=== PATIENT | female | born 1980 | race Caucasian/White ===

== ENCOUNTER 2018-05-26 17:46 | Inpatient (IN) | payer OTHER ==
[2018-05-26] MEDS ORDERED: IOPAMIDOL-300 CONTRAST 30 ML VIAL (ORAL USE) PO PRN (18:44)
[2018-05-26] MEDS ORDERED: SODIUM CHLORIDE 0.9% 2,000 ML IV STA (18:44)
--- NOTE | 2018-05-26 19:46 | ED ---
Abdominal Pain HPI - General Source: patient, RN notes reviewed Mode of arrival: ambulatory Limitations: no limitations <Lambert Burnett - Last Filed: 05/26/18 19:43> <Earl Moctezuma - Last Filed: 05/26/18 22:17> - General Chief Complaint: Abdominal Pain Stated Complaint: Fever, abd pain, surgery 05/09 Time Seen by Provider: 05/26/18 18:44 - History of Present Illness Initial Comments: 38-year-old female presents emergency Department with chief complaint of abdominal pain, fever. Patient states that she had gastric sleeve surgery on by surgeon in [place]. Patient states that she does have some pain since his surgery but recently noticed her heart rate has more elevated and felt ill. Patient noticed that she had a fever. She did take Tylenol 500 mg prior arrival. Patient denies any URI symptoms. She does admit that she's had some pain that radiates into her chest and she feels short of breath. Patient had no prior DVT no recent leg pain or swelling. She states she was not one in the hospital and did have SCDs on. Patient called surgeon who advised her to emergency Department secondary to abdominal pain fever concern for possible week. She states her surgeon is on medical leave at this time so she was unable to follow-up with him. Patient denies any current nausea vomiting constipation, dysuria or hematuria. She has had some light diarrhea since the procedure. Patient states she is currently on puree Foods and has had no difficulty eating. She denies any drainage from her incisions denies any other associated symptoms. (Lambert Burnett) - Related Data Home Medications Medication Instructions Recorded Confirmed ALPRAZolam [Xanax] 1 mg PO TID PRN 05/26/18 05/26/18 Acetaminophen [Tylenol Extra 500 mg PO Q6H PRN 05/26/18 05/26/18 Strength] Ascorbic Acid [Vitamin C] 500 mg PO DAILY 05/26/18 05/26/18 Calcium Carbonate [Calcium] 600 mg PO DAILY 05/26/18 05/26/18 Multivitamin,Therapeutic [Thera] 1 tab PO DAILY 05/26/18 05/26/18 Allergies Allergy/AdvReac Type Severity Reaction Status Date / Time No Known Allergies Allergy Verified 05/26/18 18:48 Review of Systems ROS Other: All systems not noted in ROS Statement are negative. <Lambert Burnett - Last Filed: 05/26/18 19:43> ROS Other: All systems not noted in ROS Statement are negative. <Earl Moctezuma - Last Filed: 05/26/18 22:17> ROS Statement: Those systems with pertinent positive or pertinent negative responses have been documented in the HPI. Past Medical History Past Medical History: No Reported History History of Any Multi-Drug Resistant Organisms: None Reported Additional Past Surgical History / Comment(s): Gastric sleeve 05/09/18 Past Psychological History: No Psychological Hx Reported Smoking Status: Never smoker Past Alcohol Use History: None Reported Past Drug Use History: None Reported <Lambert Burnett - Last Filed: 05/26/18 19:43> General Exam Limitations: no limitations General appearance: alert, in no apparent distress Head exam: Present: atraumatic, normocephalic, normal inspection ENT exam: Present: normal oropharynx Neck exam: Present: normal inspection, full ROM. Absent: tenderness, meningismus, lymphadenopathy Respiratory exam: Present: normal lung sounds bilaterally. Absent: respiratory distress, wheezes, rales, rhonchi, stridor Cardiovascular Exam: Present: normal rhythm, tachycardia, normal heart sounds. Absent: systolic murmur, diastolic murmur, rubs, gallop, clicks GI/Abdominal exam: Present: soft, tenderness (Moderate left-sided), normal bowel sounds, other (Healed surgical incisions noted). Absent: distended, guarding, rebound, rigid Back exam: Absent: CVA tenderness (R), CVA tenderness (L) <Lambert Burnett - Last Filed: 05/26/18 19:43> Vital Signs 05/26/18 05/26/18 05/26/18 18:00 20:08 21:47 Temperature 100.3 F H 100.5 F H 101 F H Pulse Rate 129 H 106 H 104 H Respiratory 20 18 16 Rate Blood Pressure 111/73 116/76 123/74 O2 Sat by Pulse 99 100 99 Oximetry Medical Decision Making <Lambert Burnett - Last Filed: 05/26/18 19:43> - Lab Data Result diagrams: 05/26/18 19:38 05/26/18 19:38 <Earl Moctezuma - Last Filed: 05/26/18 22:17> - Medical Decision Making 38-year-old female presenting with fever, tachycardia, and dyspnea. Patient is postop gastric sleeve, CT abdomen is obtained for concerns of gastric leak or postsurgical infection. This is negative. Patient also sees CT angiography which is negative for pulmonary embolism, there is a bilateral infiltrate which does explain her fever, as well as her dyspnea. She has a significantly elevated white blood cell count 20.2, stable hemoglobin, normal CMP, urinalysis is also positive for 32 white cells and bacteria although patient has no complaints of dysuria. She is started on antibiotics will be admitted for fluid resuscitation and close monitoring awaiting blood culture and urine culture. (Earl Moctezuma) - Lab Data Lab Results 05/26/18 05/26/18 05/26/18 Range/Units 19:38 19:38 19:38 WBC 20.2 H (3.8-10.6) k/uL RBC 4.30 (3.80-5.40) m/uL Hgb 12.5 (11.4-16.0) gm/dL Hct 40.1 (34.0-46.0) % MCV 93.2 (80.0-100.0) fL MCH 29.1 (25.0-35.0) pg MCHC 31.2 (31.0-37.0) g/dL RDW 13.1 (11.5-15.5) % Plt Count 561 H (150-450) k/uL Neutrophils % 86 % Lymphocytes % 7 % Monocytes % 6 % Eosinophils % 0 % Basophils % 0 % Neutrophils # 17.4 H (1.3-7.7) k/uL Lymphocytes # 1.3 (1.0-4.8) k/uL Monocytes # 1.2 H (0-1.0) k/uL Eosinophils # 0.1 (0-0.7) k/uL Basophils # 0.0 (0-0.2) k/uL PT (9.0-12.0) sec INR (<1.2) APTT (22.0-30.0) sec D-Dimer (<0.60) mg/L FEU Sodium 138 (137-145) mmol/L Potassium 4.1 (3.5-5.1) mmol/L Chloride 100 (98-107) mmol/L Carbon Dioxide 26 (22-30) mmol/L Anion Gap 12 mmol/L BUN 10 (7-17) mg/dL Creatinine 0.61 (0.52-1.04) mg/dL Est GFR (CKD-EPI)AfAm >90 (>60 ml/min/1.73 sqM) Est GFR (CKD-EPI)NonAf >90 (>60 ml/min/1.73 sqM) Glucose 95 (74-99) mg/dL Plasma Lactic Acid Deon 1.1 (0.7-2.0) mmol/L Calcium 9.2 (8.4-10.2) mg/dL Total Bilirubin 1.0 (0.2-1.3) mg/dL AST 21 (14-36) U/L ALT 15 (9-52) U/L Alkaline Phosphatase 76 (38-126) U/L Total Protein 7.4 (6.3-8.2) g/dL Albumin 3.7 (3.5-5.0) g/dL Amylase 57 (30-110) U/L Lipase 189 (23-300) U/L Urine Color Urine Appearance (Clear) Urine pH (5.0-8.0) Ur Specific Lawrence (1.001-1.035) Urine Protein (Negative) Urine Glucose (UA) (Negative) Urine Ketones (Negative) Urine Blood (Negative) Urine Nitrite (Negative) Urine Bilirubin (Negative) Urine Urobilinogen (<2.0) mg/dL Ur Leukocyte Esterase (Negative) Urine RBC (0-5) /hpf Urine WBC (0-5) /hpf Ur Squamous Epith Cells (0-4) /hpf Urine Bacteria (None) /hpf Urine Mucus (None) /hpf Urine HCG, Qual (Not Detectd) 05/26/18 05/26/18 05/26/18 Range/Units 19:38 19:38 19:38 WBC (3.8-10.6) k/uL RBC (3.80-5.40) m/uL Hgb (11.4-16.0) gm/dL Hct (34.0-46.0) % MCV (80.0-100.0) fL MCH (25.0-35.0) pg MCHC (31.0-37.0) g/dL RDW (11.5-15.5) % Plt Count (150-450) k/uL Neutrophils % % Lymphocytes % % Monocytes % % Eosinophils % % Basophils % % Neutrophils # (1.3-7.7) k/uL Lymphocytes # (1.0-4.8) k/uL Monocytes # (0-1.0) k/uL Eosinophils # (0-0.7) k/uL Basophils # (0-0.2) k/uL PT 12.8 H (9.0-12.0) sec INR 1.4 H (<1.2) APTT 29.4 (22.0-30.0) sec D-Dimer 4.01 H (<0.60) mg/L FEU Sodium (137-145) mmol/L Potassium (3.5-5.1) mmol/L Chloride (98-107) mmol/L Carbon Dioxide (22-30) mmol/L Anion Gap mmol/L BUN (7-17) mg/dL Creatinine (0.52-1.04) mg/dL Est GFR (CKD-EPI)AfAm (>60 ml/min/1.73 sqM) Est GFR (CKD-EPI)NonAf (>60 ml/min/1.73 sqM) Glucose (74-99) mg/dL Plasma Lactic Acid Deon (0.7-2.0) mmol/L Calcium (8.4-10.2) mg/dL Total Bilirubin (0.2-1.3) mg/dL AST (14-36) U/L ALT (9-52) U/L Alkaline Phosphatase (38-126) U/L Total Protein (6.3-8.2) g/dL Albumin (3.5-5.0) g/dL Amylase (30-110) U/L Lipase (23-300) U/L Urine Color Yellow Urine Appearance Cloudy H (Clear) Urine pH 6.5 (5.0-8.0) Ur Specific Lawrence 1.031 (1.001-1.035) Urine Protein 1+ H (Negative) Urine Glucose (UA) Negative (Negative) Urine Ketones 3+ H (Negative) Urine Blood Small H (Negative) Urine Nitrite Negative (Negative) Urine Bilirubin Negative (Negative) Urine Urobilinogen 3.0 (<2.0) mg/dL Ur Leukocyte Esterase Large H (Negative) Urine RBC 16 H (0-5) /hpf Urine WBC 32 H (0-5) /hpf Ur Squamous Epith Cells 3 (0-4) /hpf Urine Bacteria Moderate H (None) /hpf Urine Mucus Many H (None) /hpf Urine HCG, Qual Not Detected (Not Detectd) Disposition <Lambert Burnett - Last Filed: 05/26/18 19:43> Is patient prescribed a controlled substance at d/c from ED?: No Decision to Admit Reason: Admit from EC Decision Date: 05/26/18 Decision Time: 22:17 <Earl Moctezuma - Last Filed: 05/26/18 22:17> Clinical Impression: UTI (urinary tract infection), Pneumonia Disposition: ADMITTED IP TO THIS HOSP Condition: Stable Referrals: German Fernández DO [Primary Care Provider] - 1-2 days
[2018-05-26 19:56] LABS: Appearance,Urine Cloudy (Clear); Bacteria,Urine Moderate /hpf; Bilirubin,Urine Negative (Negative); Blood,Urine Small (Negative); Color,Urine Yellow; Glucose,Urine (UA) Negative (Negative); Ketones,Urine 3+ (Negative); Leukocyte Esterase,Urine Large (Negative); Mucus,Urine Many /hpf; Nitrite,Urine Negative (Negative); PH, Urine 6.5 (5.0-8.0); Protein,Urine 1+ (Negative); RBC,Urine 16 /hpf (0-5); Specific Gravity,Urine 1.031 (1.001-1.035); Squamous Epithelial Cell,Urine 3 /hpf (0-4); WBC,Urine 32 /hpf (0-5)
[2018-05-26 20:04] LABS: ALT 15 U/L (9-52); AST 21 U/L (14-36); Albumin 3.7 g/dL (3.5-5.0); Alkaline Phosphatase 76 U/L (38-126); Amylase 57 U/L (30-110); Anion Gap 12 mmol/L; Blood Urea Nitrogen 10 mg/dL (7-17); Calcium 9.2 mg/dL (8.4-10.2); Carbon Dioxide 26 mmol/L (22-30); Chloride 100 mmol/L (98-107); Glucose 95 mg/dL (74-99); Lipase 189 U/L (23-300); Sodium 138 mmol/L (137-145); Total Protein 7.4 g/dL (6.3-8.2)
[2018-05-26 20:11] LABS: Potassium 4.1 mmol/L (3.5-5.1)
[2018-05-26 20:47] LABS: INR 1.4 (<1.2); Partial Thromboplastin Time 29.4 sec (22.0-30.0); Prothrombin Time 12.8 sec (9.0-12.0)
[2018-05-26 20:51] LABS: D-Dimer 4.01 mg/L FEU (<0.60)
[2018-05-26 20:58] LABS: Basophils % (A) 0 %; Eosinophils # (A) 0.1 k/uL (0-0.7); Eosinophils % (A) 0 %; HCT 40.1 % (34.0-46.0); HGB 12.5 gm/dL (11.4-16.0); Lymphocytes # (A) 1.3 k/uL (1.0-4.8); Lymphocytes % (A) 7 %; MCH 29.1 pg (25.0-35.0); MCHC 31.2 g/dL (31.0-37.0); MCV 93.2 fL (80.0-100.0); Mean Platelet Volume 7.3; Monocytes # (A) 1.2 k/uL (0-1.0); Monocytes % (A) 6 %; Neutrophils # (A) 17.4 k/uL (1.3-7.7); Neutrophils % (A) 86 %; Platelet Count 561 k/uL (150-450); RDW 13.1 % (11.5-15.5); WBC 20.2 k/uL (3.8-10.6)
--- NOTE | 2018-05-26 21:41 | CT ---
EXAMINATION TYPE: CT chest angio for PE DATE OF EXAM: 05/26/2018 COMPARISON: NONE HISTORY: Fever and tachycardia. CT DLP: 307.8 mGycm. Automated Exposure Control for Dose Reduction was Utilized. CONTRAST: CTA scan of the thorax is performed with IV Contrast, patient injected with 100 mL of Isovue 370, pul monary embolism protocol. MIP Images are created on CT scanner and reviewed. FINDINGS: LUNGS: Low lung volumes are present. There is small to tiny left pleural effusion with associated com pressive atelectasis and/or infiltrate. There is patchy atelectasis and/or infiltrate posteriorly in the right lung base. Upper lungs are clear without pneumothorax. Tracheobronchial tree is patent. MEDIASTINUM: There is satisfactory enhancement of the pulmonary artery and its branches, there is no CT evidence for pulmonary embolism. There are no greater than 1 cm hilar or mediastinal lymph nodes. No cardiomegaly or pericardial effusion is seen. OTHER: [id number] multilevel spurring in the thoracic spine is seen. Please refer to same day C T abdomen for complete details on the upper abdomen IMPRESSION: 1. No CT evidence for acute pulmonary embolism. 2. Low lung volumes with tiny left pleural effusion and bilateral lower lobe atelectasis and/or infil trate noted.
--- NOTE | 2018-05-26 21:45 | CT ---
EXAMINATION TYPE: CT abdomen pelvis w con DATE OF EXAM: 05/26/2018 HISTORY: Abdominal pain, fever, tachycardia CT DLP: 733.6mGycm Automated Exposure Control for Dose Reduction was Utilized. CONTRAST: CT scan of the abdomen and pelvis is performed with limited oral and with IV Contrast, patient inject ed with 100 mL of Isovue 300. COMPARISON: None FINDINGS: LUNG BASES: Please refer to same-day CTA report for complete details and lung bases. LIVER/GB: No significant abnormality is appreciated. PANCREAS: No significant abnormality is seen. SPLEEN: No significant abnormality is seen. ADRENALS: No significant abnormality is seen. KIDNEYS: No significant abnormality is seen. BOWEL: Evaluation bowel suboptimal secondary to lack of significant enteric contrast and patient havi ng little intra-abdominal fat despite prominence of extra abdominal fat. Surgical changes from gastri c sleeve procedure identified epigastric region. There is no suspicious small or large bowel dilatati on. Low-lying cecum into right pelvis is noted. UTERUS/ADNEXA: There is prominence of the lower uterine segment/cervix, correlate clinically as cervi mimi mass versus low-lying fibroid need to be considered axial image 81. There is small amount of free fluid in pelvic cul-de-sac axial image 81. There is a retroverted uterus with probable fundal fibroi d axial image 73. LYMPH NODES: No greater than 1cm abdominal or pelvic lymph nodes are appreciated. OSSEOUS STRUCTURES: There is transitional-type vertebra at lumbosacral junction. OTHER: No significant additional abnormality is seen. IMPRESSION: No significant acute finding is seen to account for patient's clinical symptoms.
[2018-05-26] MEDS ORDERED: AZITHROMYCIN 500 MG in SODIUM CHLORIDE 0.9% 250 ML IVPB STA (22:01)
[2018-05-26] MEDS ORDERED: VANCOMYCIN IV PER PHARMACY 1 EACH MISC MISCELLANE PRN (22:01)
[2018-05-26] MEDS ORDERED: VANCOMYCIN 1,500 MG in SODIUM CHLORIDE 0.9% 250 ML IVPB STA (22:04)
[2018-05-26] MEDS ORDERED: NALOXONE 0.4 MG/ML 1 ML VIAL IV PRN (22:13)
[2018-05-26] MEDS: SODIUM CHLORIDE 0.9% 1,000 ML IV SCH (22:41)
[2018-05-26] MEDS: ACETAMINOPHEN TAB 325 MG TAB PO PRN (22:44)
[2018-05-26 23:51] VITALS: BMI 33.1
[2018-05-27] MEDS: MORPHINE SULFATE 4 MG/ML SYRINGE IV PRN ×5 (00:04→23:30)
[2018-05-27 08:59] LABS: Basophils % (A) 0 %; Eosinophils % (A) 0 %; HCT 33.1 % (34.0-46.0); HGB 10.2 gm/dL (11.4-16.0); Hypochromasia Slight; Lymphocytes # (A) 1.1 k/uL (1.0-4.8); Lymphocytes % (A) 6 %; MCH 28.7 pg (25.0-35.0); MCHC 30.8 g/dL (31.0-37.0); MCV 93.1 fL (80.0-100.0); Mean Platelet Volume 7.5; Monocytes # (A) 1.1 k/uL (0-1.0); Monocytes % (A) 6 %; Neutrophils # (A) 14.4 k/uL (1.3-7.7); Neutrophils % (A) 86 %; Platelet Count 463 k/uL (150-450); RBC 3.55 m/uL (3.80-5.40); RDW 13.1 % (11.5-15.5); WBC 16.8 k/uL (3.8-10.6)
[2018-05-27 09:31] LABS: ALT 17 U/L (9-52); AST 13 U/L (14-36); Albumin 2.6 g/dL (3.5-5.0); Alkaline Phosphatase 55 U/L (38-126); Anion Gap 9 mmol/L; Blood Urea Nitrogen 6 mg/dL (7-17); Calcium 7.8 mg/dL (8.4-10.2); Carbon Dioxide 23 mmol/L (22-30); Chloride 105 mmol/L (98-107); Glucose 73 mg/dL (74-99); Potassium 3.9 mmol/L (3.5-5.1); Sodium 137 mmol/L (137-145); Total Bilirubin 0.5 mg/dL (0.2-1.3); Total Protein 5.7 g/dL (6.3-8.2)
[2018-05-27] MEDS: SODIUM CHLORIDE 0.9% 1,000 ML IV SCH (11:28)
[2018-05-27] MEDS: VANCOMYCIN 1,500 MG in SODIUM CHLORIDE 0.9% 250 ML IVPB SCH (15:20)
--- NOTE | 2018-05-27 15:38 | P.HPIM ---
History of Present Illness H&P Date: 05/27/18 Chief Complaint: Fever, abdominal pain This is a 38-year-old pleasant female who presented to the emergency room with a chief complaint of abdominal pain and fever. Patient had gastric sleeve surgery on 05/09/2018 by a surgeon in [place]. Patient states that she had experienced some discomfort post surgery however she did notice her heart rate being elevated over 100 at rest and not feeling well. Patient denies any congestion, cough, or sinus pressure. Patient was experienced back pain that radiated to her chest causing some shortness of breath. Patient also complains of epigastric abdominal pain. Patient called her surgeon to advised her to go to the emergency department secondary to the abdominal pain and fever concern for possible leak post surgery. Patient denies any nausea, vomiting, dysuria or hematuria patient since has had a small amount of diarrhea since the procedure. She is currently on a pure food diet and has not experienced any difficulty eating. She denies any drainage from her incisions or redness to the site. Review of Systems All systems: negative Constitutional: Reports fatigue, Reports fever, Denies chills, Denies malaise, Denies night sweats, Denies weakness Eyes: denies blurred vision, denies pain Ears, nose, mouth and throat: Denies headache, Denies sinus pressure, Denies sore throat Cardiovascular: Denies chest pain, Denies dyspnea on exertion, Denies irregular heart beat, Denies leg edema, Denies palpitations, Denies shortness of breath Respiratory: Denies cough Gastrointestinal: Denies abdominal pain, Denies constipation, Denies diarrhea, Denies loss of appetite, Denies nausea, Denies vomiting Genitourinary: Reports flank pain, Denies dysuria, Denies hematuria, Denies urgency Musculoskeletal: Denies myalgias Integumentary: Denies pruritus, Denies rash Neurological: Denies numbness, Denies weakness Psychiatric: Denies anxiety, Denies depression Endocrine: Denies fatigue, Denies weight change Past Medical History Past Medical History: No Reported History History of Any Multi-Drug Resistant Organisms: None Reported Additional Past Surgical History / Comment(s): Gastric sleeve 05/09/18 Past Anesthesia/Blood Transfusion Reactions: Postoperative Nausea & Vomiting ( PONV) Past Psychological History: No Psychological Hx Reported Smoking Status: Never smoker Past Alcohol Use History: None Reported Past Drug Use History: None Reported - Past Family History Mother Family Medical History: Diabetes Mellitus (Father), Hypertension (Father) Additional Family Medical History / Comment(s): Mother has no medical history. Patient has 2 children both are healthy ages 18 and 20 Father Family Medical History: Diabetes Mellitus, Hypertension Medications and Allergies Home Medications Medication Instructions Recorded Confirmed Type ALPRAZolam [Xanax] 1 mg PO TID PRN 05/26/18 05/26/18 History Acetaminophen [Tylenol Extra 500 mg PO Q6H PRN 05/26/18 05/26/18 History Strength] Ascorbic Acid [Vitamin C] 500 mg PO DAILY 05/26/18 05/26/18 History Calcium Carbonate [Calcium] 600 mg PO DAILY 05/26/18 05/26/18 History Multivitamin,Therapeutic [Thera] 1 tab PO DAILY 05/26/18 05/26/18 History Allergies Allergy/AdvReac Type Severity Reaction Status Date / Time No Known Allergies Allergy Verified 05/26/18 18:48 Physical Exam Vitals: Vital Signs Temp Pulse Pulse Resp BP BP Pulse Ox 05/27/18 10:00 99.4 F 115 H 16 105/67 93 L 05/26/18 23:30 98.7 F 109 H 16 104/64 96 05/26/18 22:44 100.8 F H 106 H 18 124/78 99 05/26/18 21:47 101 F H 104 H 16 123/74 99 05/26/18 20:08 100.5 F H 106 H 18 116/76 100 05/26/18 18:00 100.3 F H 129 H 20 111/73 99 Intake and Output 05/27/18 05/27/18 05/27/18 06:59 14:59 22:59 Intake Total 700 Balance 700 Intake: Intake, IV Titration 700 Amount Sodium Chloride 0.9% 1, 450 000 ml @ 75 mls/hr IV . [id number] URVASHI Rx#:[id number] Vancomycin 1,500 mg In 250 Sodium Chloride 0.9% 250 ml @ 125 mls/hr IVPB Q12H URVASHI Rx#:[id number] Other: Voiding Method Toilet # Voids 1 Weight 87.543 kg - Constitutional General appearance: cooperative, no acute distress, obese - EENT Eyes: EOMI, PERRLA ENT: hearing grossly normal, normal oropharynx - Neck Neck: no lymphadenopathy, normal ROM, no rigidity, no stridor - Respiratory Respiratory: bilateral: CTA - Cardiovascular Rhythm: regular Heart sounds: normal: S1, S2 Abnormal Heart Sounds: no systolic murmur, no diastolic murmur, no rub, no S3 Gallop, no S4 Gallop, no click, no other - Gastrointestinal General gastrointestinal: no organomegaly, soft, no tenderness - Integumentary Integumentary: normal, normal turgor - Neurologic Neurologic: CNII-XII intact - Musculoskeletal Musculoskeletal: gait normal, strength equal bilaterally - Psychiatric Psychiatric: A&O x's 3, appropriate affect, intact judgment & insight Results CBC & Chem 7: 05/27/18 07:26 05/27/18 07:26 Labs: Abnormal Lab Results - Last 24 Hours (Table) 05/26/18 05/26/18 05/26/18 Range/Units 19:38 19:38 19:38 WBC 20.2 H (3.8-10.6) k/uL RBC (3.80-5.40) m/uL Hgb (11.4-16.0) gm/dL Hct (34.0-46.0) % MCHC (31.0-37.0) g/dL Plt Count 561 H (150-450) k/uL Neutrophils # 17.4 H (1.3-7.7) k/uL Monocytes # 1.2 H (0-1.0) k/uL PT 12.8 H (9.0-12.0) sec INR 1.4 H (<1.2) D-Dimer 4.01 H (<0.60) mg/L FEU BUN (7-17) mg/dL Glucose (74-99) mg/dL Calcium (8.4-10.2) mg/dL AST (14-36) U/L Total Protein (6.3-8.2) g/dL Albumin (3.5-5.0) g/dL Urine Appearance Cloudy H (Clear) Urine Protein 1+ H (Negative) Urine Ketones 3+ H (Negative) Urine Blood Small H (Negative) Ur Leukocyte Esterase Large H (Negative) Urine RBC 16 H (0-5) /hpf Urine WBC 32 H (0-5) /hpf Urine Bacteria Moderate H (None) /hpf Urine Mucus Many H (None) /hpf 05/27/18 05/27/18 Range/Units 07:26 07:26 WBC 16.8 H (3.8-10.6) k/uL RBC 3.55 L (3.80-5.40) m/uL Hgb 10.2 L (11.4-16.0) gm/dL Hct 33.1 L (34.0-46.0) % MCHC 30.8 L (31.0-37.0) g/dL Plt Count 463 H (150-450) k/uL Neutrophils # 14.4 H (1.3-7.7) k/uL Monocytes # 1.1 H (0-1.0) k/uL PT (9.0-12.0) sec INR (<1.2) D-Dimer (<0.60) mg/L FEU BUN 6 L (7-17) mg/dL Glucose 73 L (74-99) mg/dL Calcium 7.8 L (8.4-10.2) mg/dL AST 13 L (14-36) U/L Total Protein 5.7 L (6.3-8.2) g/dL Albumin 2.6 L (3.5-5.0) g/dL Urine Appearance (Clear) Urine Protein (Negative) Urine Ketones (Negative) Urine Blood (Negative) Ur Leukocyte Esterase (Negative) Urine RBC (0-5) /hpf Urine WBC (0-5) /hpf Urine Bacteria (None) /hpf Urine Mucus (None) /hpf Microbiology - Last 24 Hours (Table) 05/26/18 19:38 Urine Culture - Preliminary Urine,Voided Thrombosis Risk Factor Assmnt - Choose All That Apply Any of the Below Risk Factors Present?: No Other Risk Factors: No Other congenital or acquired thrombophilia - If yes, enter type in comment: No Thrombosis Risk Factor Assessment Level: Very Low Risk Assessment and Plan Plan: 1. Urinary tract infection continue Rocephin 1 g, awaiting urine culture results, 2. Pneumonia continue azithromycin 500 mg daily, vancomycin 200 mg every 12 hours, use incentive spirometer, Mycoplasma IgM Legionella urinary antigen 3. Fever continues acetaminophen as needed awaiting blood cultures DVT prophylaxis ambulation GI prophylaxis Discharge plan: Home possibly tomorrow Impression and plan of care have been directed as dictated by the signing physician. Maryjo Singh nurse practitioner acting as scribe for signing physician.
[2018-05-27] MEDS: ACETAMINOPHEN TAB 325 MG TAB PO PRN (19:57)
[2018-05-27] MEDS ORDERED: AZITHROMYCIN 500 MG in SODIUM CHLORIDE 0.9% 250 ML IVPB SCH (22:00)
[2018-05-28] MEDS: VANCOMYCIN 1,500 MG in SODIUM CHLORIDE 0.9% 250 ML IVPB SCH ×3 (01:14→23:11)
[2018-05-28] MEDS: SODIUM CHLORIDE 0.9% 1,000 ML IV SCH ×2 (01:15→16:39)
[2018-05-28] MEDS: MORPHINE SULFATE 4 MG/ML SYRINGE IV PRN ×2 (04:40→20:04)
[2018-05-28] MEDS ORDERED: VANCOMYCIN TROUGH DUE 1 EACH MISC MISCELLANE ONE (11:00)
[2018-05-28 12:49] LABS: Basophils % (A) 0 %; Eosinophils # (A) 0.1 k/uL (0-0.7); Eosinophils % (A) 0 %; HCT 31.8 % (34.0-46.0); HGB 10.1 gm/dL (11.4-16.0); Hypochromasia Slight; Lymphocytes # (A) 1.2 k/uL (1.0-4.8); Lymphocytes % (A) 7 %; MCH 29.6 pg (25.0-35.0); MCHC 31.7 g/dL (31.0-37.0); MCV 93.4 fL (80.0-100.0); Mean Platelet Volume 7.5; Monocytes % (A) 6 %; Neutrophils # (A) 13.9 k/uL (1.3-7.7); Neutrophils % (A) 85 %; Platelet Count 499 k/uL (150-450); RBC 3.41 m/uL (3.80-5.40); RDW 13.2 % (11.5-15.5); WBC 16.4 k/uL (3.8-10.6)
--- NOTE | 2018-05-28 15:06 | P.DS ---
Providers Date of admission: 05/26/18 22:17 Attending physician: Waldemar Sanchez MD Primary care physician: [facility] Course: This is a 38-year-old pleasant female who presented to the emergency room with a chief complaint of abdominal pain and fever. Patient had gastric sleeve surgery on 05/09/2018 by a surgeon in [place]. Patient states that she had experienced some discomfort post surgery however she did notice her heart rate being elevated over 100 at rest and not feeling well. Patient denies any congestion, cough, or sinus pressure. Patient was experienced back pain that radiated to her chest causing some shortness of breath. Patient also complains of epigastric abdominal pain. Patient called her surgeon to advised her to go to the emergency department secondary to the abdominal pain and fever concern for possible leak post surgery. Patient denies any nausea, vomiting, dysuria or hematuria patient since has had a small amount of diarrhea since the procedure. She is currently on a pure food diet and has not experienced any difficulty eating. She denies any drainage from her incisions or redness to the site. 05/28: Patient is resting comfortably in bed. She did have a temperature of 100.4 last night and heart rate still has been tachycardic. Patient dates that she is feeling much better. She has been using the incentive spirometer and has increased her number. She has also been up ambulating denies any shortness of breath with ambulation. Patient still is complaining of some lower back discomfort. WBC 16.4, hemoglobin 10.1. Patient denies any nausea, vomiting, diarrhea. Spoke with her surgeon from [facility] regarding treatment plan. Discharge diagnosis: #1 sepsis related to urinary tract infection 2. pneumonia 3. fever 4.gastric sleeve procedure secondary to severe obesity Disposition: Home with self-care CC: Dr. Fernández Impression and plan of care have been directed as dictated by the signing physician. Maryjo Singh nurse practitioner acting as scribe for signing physician. Patient Condition at Discharge: Stable Plan - Discharge Summary Discharge Rx Participant: Yes New Discharge Prescriptions: New Acetaminophen Tab [Tylenol] 650 mg PO Q6HR PRN tab PRN Reason: Mild Pain Or Fever > 100.5 Cephalexin [Keflex] 500 mg PO Q8HR #15 cap Continue Multivitamin,Therapeutic [Thera] 1 tab PO DAILY Ascorbic Acid [Vitamin C] 500 mg PO DAILY Acetaminophen [Tylenol Extra Strength] 500 mg PO Q6H PRN PRN Reason: Pain ALPRAZolam [Xanax] 1 mg PO TID PRN PRN Reason: Anxiety Calcium Carbonate [Calcium] 600 mg PO DAILY Discharge Medication List ALPRAZolam [Xanax] 1 mg PO TID PRN 05/26/18 [History] Acetaminophen [Tylenol Extra Strength] 500 mg PO Q6H PRN 05/26/18 [History] Ascorbic Acid [Vitamin C] 500 mg PO DAILY 05/26/18 [History] Calcium Carbonate [Calcium] 600 mg PO DAILY 05/26/18 [History] Multivitamin,Therapeutic [Thera] 1 tab PO DAILY 05/26/18 [History] Acetaminophen Tab [Tylenol] 650 mg PO Q6HR PRN tab 05/28/18 [Rx] Cephalexin [Keflex] 500 mg PO Q8HR #15 cap 05/28/18 [Rx] Follow up Appointment(s)/Referral(s): German Fernández DO [Primary Care Provider] - 1-2 days
--- NOTE | 2018-05-28 15:18 | P.PN ---
Subjective Progress Note Date: 05/28/18 This is a 38-year-old pleasant female who presented to the emergency room with a chief complaint of abdominal pain and fever. Patient had gastric sleeve surgery on 05/09/2018 by a surgeon in [place]. Patient states that she had experienced some discomfort post surgery however she did notice her heart rate being elevated over 100 at rest and not feeling well. Patient denies any congestion, cough, or sinus pressure. Patient was experienced back pain that radiated to her chest causing some shortness of breath. Patient also complains of epigastric abdominal pain. Patient called her surgeon to advised her to go to the emergency department secondary to the abdominal pain and fever concern for possible leak post surgery. Patient denies any nausea, vomiting, dysuria or hematuria patient since has had a small amount of diarrhea since the procedure. She is currently on a pure food diet and has not experienced any difficulty eating. She denies any drainage from her incisions or redness to the site. 05/28: Patient is resting comfortably in bed. She did have a temperature of 100.4 last night and heart rate still has been tachycardic. Patient dates that she is feeling much better. She has been using the incentive spirometer and has increased her number. She has also been up ambulating denies any shortness of breath with ambulation. Patient still is complaining of some lower back discomfort. WBC 16.4, hemoglobin 10.1. Patient denies any nausea, vomiting, diarrhea. Spoke with her surgeon from [facility] regarding treatment plan. Review of systems All systems: negative Constitutional: Reports fatigue, denies fever, Denies chills, Denies malaise, Denies night sweats, Denies weakness Eyes: denies blurred vision, denies pain Ears, nose, mouth and throat: Denies headache, Denies sinus pressure, Denies sore throat Cardiovascular: Denies chest pain, Denies dyspnea on exertion, Denies irregular heart beat, Denies leg edema, Denies palpitations, Denies shortness of breath Respiratory: Denies cough Gastrointestinal: Denies abdominal pain, Denies constipation, Denies diarrhea, Denies loss of appetite, Denies nausea, Denies vomiting Genitourinary: Reports flank pain, Denies dysuria, Denies hematuria, Denies urgency Musculoskeletal: Denies myalgias Integumentary: Denies pruritus, Denies rash Neurological: Denies numbness, Denies weakness Psychiatric: Denies anxiety, Denies depression Endocrine: Denies fatigue, Denies weight change Objective - Vital Signs Vital signs: Vital Signs Temp 98.9 F 05/28/18 07:54 Pulse 112 H 05/28/18 07:54 Resp 16 05/28/18 07:54 BP 108/69 05/28/18 07:54 Pulse Ox 92 L 05/28/18 07:54 Intake & Output 05/27/18 05/28/18 05/28/18 18:59 06:59 18:59 Intake Total 1750 500 Balance 1750 500 Intake: Intake, IV Titration 1750 Amount Azithromycin 500 mg In 250 Sodium Chloride 0.9% 250 ml @ 250 mls/hr IVPB Q24H [facility] Rx#:[id number] Sodium Chloride 0.9% 1, 1200 000 ml @ 75 mls/hr IV . [id number] URVASHI Rx#:[id number] Vancomycin 1,500 mg In 250 Sodium Chloride 0.9% 250 ml @ 125 mls/hr IVPB Q12H [facility] Rx#:[id number] cefTRIAXone 1,000 mg In 50 Sodium Chloride 0.9% 50 ml @ 100 mls/hr IVPB Q24H URVASHI Rx#:[id number] Oral 500 Other: Voiding Method Toilet # Voids 2 4 - Constitutional General appearance: Present: average body habitus, cooperative - EENT Eyes: Present: anicteric sclerae, EOMI, PERRLA ENT: Present: hearing grossly normal, NA/AT, normal oropharynx - Neck Neck: Present: normal ROM. Absent: lymphadenopathy - Respiratory Respiratory: bilateral: CTA, negative: diminished, dullness, rales, rhonchi, wheezing - Cardiovascular Rhythm: regular Heart sounds: normal: S1, S2 - Gastrointestinal General gastrointestinal: Present: normal bowel sounds, soft. Absent: tenderness - Integumentary Integumentary: Present: normal turgor - Neurologic Neurologic: Present: CNII-XII intact - Musculoskeletal Musculoskeletal: Present: gait normal, generalized weakness, strength equal bilaterally - Psychiatric Psychiatric: Present: A&O x's 3, appropriate affect, intact judgment & insight - Labs CBC & Chem 7: 05/28/18 11:09 05/27/18 07:26 Labs: Abnormal Lab Results - Last 24 Hours (Table) 05/28/18 Range/Units 11:09 WBC 16.4 H (3.8-10.6) k/uL RBC 3.41 L (3.80-5.40) m/uL Hgb 10.1 L (11.4-16.0) gm/dL Hct 31.8 L (34.0-46.0) % Plt Count 499 H (150-450) k/uL Neutrophils # 13.9 H (1.3-7.7) k/uL Microbiology - Last 24 Hours (Table) 05/26/18 19:38 Urine Culture - Final Urine,Voided Strep agalactiae - (group b) 05/26/18 19:38 Blood Culture - Preliminary Blood No Growth after 24 hours Assessment and Plan Plan: 1. Sepsis secondary to Urinary tract infection continue Rocephin 1 g, strep agalactiae, 2. Pneumonia continue azithromycin 500 mg daily, vancomycin 200 mg every 12 hours, use incentive spirometer, Mycoplasma IgM Legionella urinary antigen 3. Fever continues acetaminophen as needed awaiting blood cultures DVT prophylaxis ambulation GI prophylaxis Discharge plan: Home possibly tomorrow Impression and plan of care have been directed as dictated by the signing physician. Maryjo Singh nurse practitioner acting as scribe for signing physician.
[2018-05-28] MEDS ORDERED: IOPAMIDOL-300 CONTRAST 30 ML VIAL (ORAL USE) PO PRN (15:22)
--- NOTE | 2018-05-28 17:03 | CONS ---
CONSULTATION DATE OF SERVICE: 05/28/2018. REASON FOR CONSULTATION: Fever and sepsis. HISTORY OF PRESENT ILLNESS: The patient is a 38-year-old female, who recently did have a gastric sleeve surgery done on 05/06/2018 in [place]. The patient presenting to the ER at [facility] on 05/26/2018 with chief complaints of fever and tachycardia. The patient said fever started the day prior to presentation to hospital on . The patient also saying her heart rate has been constantly above 110. The patient has been complaining of pain to the left upper quadrant area that has been radiated up to the left upper back and to the shoulder area. Pain intensity has been almost 7 out of 10, more of a dull aching pain, at times sharp. The patient denies having any nausea or any vomiting. Denies any diarrhea. No significant burning or frequency of urine. No chest pain, shortness of breath or cough. With these symptoms, the patient was evaluated by the ER physician. On arrival to the patient did have a fever of 101 degrees Fahrenheit. The patient was tachycardic and white count was elevated 20,000. She did have a positive UA, however, no significant urinary symptoms. Influenza serology was negative. The patient did have a CT abdominal pelvis that was done only with IV contrast, which was suboptimal because of leak of oral contrast. There was some infiltrate left lung base and CT angiogram was negative for any PE. The patient has been treated with Rocephin and Zithromax for concern for possible pneumonia. However, her white count remains to be elevated. She was supposed to be discharged today and has been put on hold and Infectious Disease was consulted for further recommendation regarding antibiotic therapy. REVIEW OF SYSTEMS: CONSTITUTIONAL: Positive for weakness along with the fever. EYES: No complaint. ENT: No complaint. RESPIRATORY: As per HPI. CARDIOVASCULAR: As per HPI. GENITOURINARY: No complaint. GASTROINTESTINAL: As per HPI. MUSCULOSKELETAL: No complaint. INTEGUMENTARY: No complaint. PSYCHOLOGICAL: No complaint. ENDOCRINE: No complaint. NEUROLOGIC: No complaint. PAST MEDICAL HISTORY: No major illnesses. PAST SURGICAL HISTORY: Gastric sleeve surgery 05/09/2018. SOCIAL HISTORY: Denies smoking, drinking, or drug use. FAMILY HISTORY: Father history of hypertension and diabetes mellitus. ALLERGIES: No known drug allergies. MEDICATION: Currently include the patient is on Tylenol, Zithromax, Rocephin, morphine sulfate, Narcan, and vancomycin was started today. PHYSICAL EXAMINATION: Her blood pressure is 108/69, pulse of 112. Temperature 98.9. She is 92% on room air. General description is a middle aged female lying in bed in no distress. No tachypnea or accessory muscle of respiration use. HEENT: Shows slight pallor. No scleral icterus. Oral mucous membranes dry. No pharyngeal erythema or thrush. NECK: Trachea central. No thyromegaly. LUNGS: Unlabored breathing with decreased breath sounds in the bases. No wheeze or crackle. HEART: S1, S2. Regular rate and rhythm. ABDOMEN: Soft, minimally tender left upper quadrant area. No guarding. No rigidity. No organomegaly. EXTREMITIES: No edema feet. SKIN EXAMINATION: No rash or mass palpable. NEUROLOGICAL: Patient is awake, alert, oriented. Mood and affect normal. LABS: Hemoglobin is 10.1, white count 16.4, admission white count was 20.2. Liver enzymes have been normal. UA has been positive. Influenza serology was negative. CT report as mentioned above. DIAGNOSTIC IMPRESSION AND PLAN: Patient admitted to the hospital with sepsis in this patient who did have a fever and tachycardia and pain in the left upper abdomen that has been radiating to the upper shoulder area. Concern is likely for an intraabdominal process in this patient who recently did have a gastric sleeve procedure done. Clinically doubt pneumonia in patient who is lacking respiratory symptoms as well as UTI and the patient currently does not have any urinary symptoms of any burning or frequency and this patient recently has been in the hospital and did have a gastric sleeve procedure. Will need to cover for resistant gram positive as well as gram-negative pathogen. PLAN: 1. A CT abdominal pelvis with oral contrast has been ordered, will follow with results. 2. We will discontinue Rocephin and Zithromax. 3. We will start the patient on Zosyn 3.375 g q.8 hours. 4. Vancomycin pharmacy to dose target of 15 while waiting for clinically to stabilize and cultures to finalize. 5. We will follow up on clinical condition and culture to further adjust medication if needed. Thank you for this consultation. Will follow this patient along with you. MMODL / IJN: [id number] /
--- NOTE | 2018-05-28 18:07 | CT ---
EXAMINATION TYPE: CT abdomen pelvis wo/w con DATE OF EXAM: 05/28/2018 HISTORY: left sided abdominal pain, gastric sleeve done 05-09-18 CT DLP: 1950.6mGycm Automated Exposure Control for Dose Reduction was Utilized. CONTRAST: CT scan of the abdomen and pelvis is performed with IV Contrast, patient injected with 100 mL of Isov ue 300. COMPARISON: 05/26/2018 FINDINGS: LUNG BASES: There is redemonstration of a small left and trace right pleural effusion with bibasilar atelectasis again present. LIVER/GB: Hepatic parenchyma is diffusely hypoattenuated in comparison to that of the spleen, most co mmonly seen in hepatic steatosis. This finding limits evaluation for hepatic masses. No gross evidenc e of hepatic mass is seen. No intrahepatic biliary ductal dilatation. No cholelithiasis. PANCREAS: No significant abnormality is seen. SPLEEN: No significant abnormality is seen. ADRENALS: No significant abnormality is seen. KIDNEYS: Kidneys enhance symmetrically. No hydronephrosis. BOWEL: There are ill-defined phlegmonous changes in the region of the gastric fundus with fluid atten uation seen cranially such as on series 301 image 17. Surrounding inflammatory fat stranding is prese nt on image 27. Phlegmonous changes around the postsurgical site. Although oral contrast has been adm inistered and has passed into the colon and small bowel with no contrast remaining in the gastric sle bc. No pneumoperitoneum to suggest perforation. No dilated large or small bowel. Moderate amount ret ained colonic stool is seen. UTERUS/ADNEXA: There is redemonstration of prominence of the lower uterine segment/upper cervix. Jonn elation with direct visualization to exclude cervical mass is recommended. Again there is heterogenei ty of the uterus with suspicion for fundal fibroid. LYMPH NODES: No greater than 1cm abdominal or pelvic lymph nodes are appreciated. OSSEOUS STRUCTURES: No significant abnormality is seen. Incidental note is made of a limbus vertebrae at L4 and minimal multilevel degenerative changes are noted of the spine OTHER: No significant additional abnormality is seen. IMPRESSION: Phlegmonous changes are seen in the left upper quadrant surrounding the [place] gastric fu ndus, which is poorly defined given the surrounding inflammatory and phlegmonous changes. Fluid atten uation is seen centrally that could represent abscess or gastric secretions within the [place] gastric fundus and phlegmonous changes may be postsurgical or infectious. Correlate with CBC, fever, and ben rt-term follow-up exam if warranted. No pneumoperitoneum to suggest perforation.
[2018-05-28] MEDS: PIPERACILLIN-TAZOBACTAM 3.375 GM in SODIUM CHLORIDE 0.9% 100 ML IVPB SCH (18:10)
[2018-05-28] MEDS ORDERED: AZITHROMYCIN 500 MG TAB PO SCH (21:00)
[2018-05-29] MEDS: MORPHINE SULFATE 4 MG/ML SYRINGE IV PRN ×4 (01:59→21:02)
[2018-05-29] MEDS: PIPERACILLIN-TAZOBACTAM 3.375 GM in SODIUM CHLORIDE 0.9% 100 ML IVPB SCH ×3 (02:35→16:28)
[2018-05-29] MEDS: SODIUM CHLORIDE 0.9% 1,000 ML IV SCH ×2 (04:10→17:00)
[2018-05-29] MEDS: VANCOMYCIN 1,500 MG in SODIUM CHLORIDE 0.9% 250 ML IVPB SCH ×3 (07:09→21:02)
[2018-05-29] MEDS: ACETAMINOPHEN TAB 325 MG TAB PO PRN (07:44)
[2018-05-29] MEDS ORDERED: IBUPROFEN 800 MG TAB PO PRN (08:16)
[2018-05-29] MEDS: PANTOPRAZOLE 40 MG/10 ML VIAL IVP SCH (08:32)
[2018-05-29 09:01] LABS: Basophils % (A) 0 %; Eosinophils # (A) 0.2 k/uL (0-0.7); Eosinophils % (A) 1 %; HCT 30.3 % (34.0-46.0); HGB 9.9 gm/dL (11.4-16.0); Lymphocytes # (A) 1.1 k/uL (1.0-4.8); Lymphocytes % (A) 7 %; MCH 29.5 pg (25.0-35.0); MCHC 32.5 g/dL (31.0-37.0); MCV 90.8 fL (80.0-100.0); Mean Platelet Volume 7.9; Monocytes # (A) 1.1 k/uL (0-1.0); Monocytes % (A) 7 %; Neutrophils # (A) 13.9 k/uL (1.3-7.7); Neutrophils % (A) 83 %; Platelet Count 449 k/uL (150-450); RBC 3.34 m/uL (3.80-5.40); RDW 13.3 % (11.5-15.5); WBC 16.8 k/uL (3.8-10.6)
[2018-05-29 09:18] LABS: ALT 27 U/L (9-52); AST 36 U/L (14-36); Albumin 2.5 g/dL (3.5-5.0); Alkaline Phosphatase 53 U/L (38-126); Anion Gap 10 mmol/L; Blood Urea Nitrogen 3 mg/dL (7-17); Carbon Dioxide 23 mmol/L (22-30); Chloride 108 mmol/L (98-107); Glucose 78 mg/dL (74-99); Potassium 3.7 mmol/L (3.5-5.1); Sodium 141 mmol/L (137-145); Total Bilirubin 0.8 mg/dL (0.2-1.3); Total Protein 5.5 g/dL (6.3-8.2)
--- NOTE | 2018-05-29 11:04 | P.PN ---
Subjective Progress Note Date: 05/29/18 This is a 38-year-old pleasant female who presented to the emergency room with a chief complaint of abdominal pain and fever. Patient had gastric sleeve surgery on 05/09/2018 by a surgeon in [place]. Patient states that she had experienced some discomfort post surgery however she did notice her heart rate being elevated over 100 at rest and not feeling well. Patient denies any congestion, cough, or sinus pressure. Patient was experienced back pain that radiated to her chest causing some shortness of breath. Patient also complains of epigastric abdominal pain. Patient called her surgeon to advised her to go to the emergency department secondary to the abdominal pain and fever concern for possible leak post surgery. Patient denies any nausea, vomiting, dysuria or hematuria patient since has had a small amount of diarrhea since the procedure. She is currently on a pure food diet and has not experienced any difficulty eating. She denies any drainage from her incisions or redness to the site. 05/28: Patient is resting comfortably in bed. She did have a temperature of 100.4 last night and heart rate still has been tachycardic. Patient dates that she is feeling much better. She has been using the incentive spirometer and has increased her number. She has also been up ambulating denies any shortness of breath with ambulation. Patient still is complaining of some lower back discomfort. WBC 16.4, hemoglobin 10.1. Patient denies any nausea, vomiting, diarrhea. Spoke with her surgeon from [facility] regarding treatment plan. 05/29: Today, patient's discharge was held due to continued elevation in white count, discharge was held and a CAT scan of the abdomen and pelvis was ordered that showed phlegmonous changes in the left upper quadrant surrounding the [place] gastric fundus which is poorly defined given the surrounding inflammatory and phlegmonous changes. Fluid attenuation is seen centrally that could represent abscess or gastric secretions within the [place] gastric fundus and phlegmonous changes may be postsurgical or infectious. Those consults with ID and general surgery were added. Dr. Elizondo is following the patient and antibiotics are currently Zosyn and vancomycin. Dr. Conte is on consult. Blood culture showing no growth after 48 hours. Mycoplasma is negative and Legionella is pending. IV fluids will be increased 100 mL per hour. Review of systems All systems: negative Constitutional: Reports fatigue, denies fever, Denies chills, Denies malaise, Denies night sweats Eyes: denies blurred vision, denies pain Ears, nose, mouth and throat: Denies headache, Denies sinus pressure, Denies sore throat Cardiovascular: Denies chest pain, Denies dyspnea on exertion, Denies irregular heart beat, Denies leg edema, Denies palpitations, Denies shortness of breath Respiratory: Denies cough Gastrointestinal: Denies abdominal pain, Denies constipation, Denies diarrhea, Denies loss of appetite, Denies nausea, Denies vomiting Genitourinary: Reports flank pain, Denies dysuria, Denies hematuria, Denies urgency Musculoskeletal: Denies myalgias Integumentary: Denies pruritus, Denies rash Neurological: Denies numbness, Denies weakness Psychiatric: Denies anxiety, Denies depression Endocrine: Denies fatigue, Denies weight change Objective - Vital Signs Vital signs: Vital Signs Temp 99.6 F 05/29/18 00:20 Pulse 90 05/29/18 00:20 Resp 16 05/29/18 00:20 BP 116/70 05/29/18 00:20 Pulse Ox 94 L 05/28/18 15:00 Intake & Output 05/28/18 05/29/18 05/29/18 18:59 06:59 18:59 Intake Total 3400 1225 Balance 3400 1225 Intake: Intake, IV Titration 2400 1225 Amount Piperacillin-Tazobactam 3 450 .375 gm In Sodium Chloride 0.9% 100 ml @ 25 mls/hr IVPB Q8HR [facility] Rx# :[id number] Sodium Chloride 0.9% 1, 900 525 000 ml @ 75 mls/hr IV . [id number] URVASHI Rx#:[id number] Vancomycin 1,500 mg In 1500 250 Sodium Chloride 0.9% 250 ml @ 125 mls/hr IVPB Q8H URVASHI Rx#:[id number] Oral 1000 Other: # Voids 3 - Exam General appearance: Present: average body habitus, cooperative. Patient in bed and appears to be in no distress. - EENT Eyes: Present: anicteric sclerae, EOMI, PERRLA ENT: Present: hearing grossly normal, NA/AT, normal oropharynx - Neck Neck: Present: normal ROM. Absent: lymphadenopathy - Respiratory Respiratory: bilateral: CTA, negative: diminished, dullness, rales, rhonchi, wheezing - Cardiovascular Rhythm: regular Heart sounds: normal: S1, S2 - Gastrointestinal General gastrointestinal: Present: normal bowel sounds, soft. Absent: tenderness - Integumentary Integumentary: Present: normal turgor - Neurologic Neurologic: Present: CNII-XII intact - Musculoskeletal Musculoskeletal: Present: gait normal, generalized weakness, strength equal bilaterally - Psychiatric Psychiatric: Present: A&O x's 3, appropriate affect, intact judgment & insight - Labs CBC & Chem 7: 05/29/18 07:47 05/29/18 07:47 Labs: Abnormal Lab Results - Last 24 Hours (Table) 05/28/18 Range/Units 11:09 WBC 16.4 H (3.8-10.6) k/uL RBC 3.41 L (3.80-5.40) m/uL Hgb 10.1 L (11.4-16.0) gm/dL Hct 31.8 L (34.0-46.0) % Plt Count 499 H (150-450) k/uL Neutrophils # 13.9 H (1.3-7.7) k/uL Microbiology - Last 24 Hours (Table) 05/26/18 19:38 Blood Culture - Preliminary Blood No Growth after 48 hours Assessment and Plan Plan: 1. Sepsis secondary to abdominal abscess and possibly related to strep agalactia urinary tract infection. Consult with Dr. Mikhail hunter. Dr. Conte is on consult. Antibiotics have been changed to Zosyn. IV fluids 100 mL per hour. 2. Pneumonia less likely. Antibiotics changed to Zosyn, continue incentive spirometer, Mycoplasma IgM negative, Legionella urinary antigen pending 3. Morbid obesity status post gastric sleeve procedure. DVT prophylaxis ambulation GI prophylaxis. IV Protonix. Discharge plan: Home Impression and plan of care have been directed as dictated by the signing physician. Rhonda Rodriguez nurse practitioner acting as scribe for signing physician.
[2018-05-29] MEDS ORDERED: ALPRAZolam 1 MG TAB PO PRN (14:19)
[2018-05-29] MEDS ORDERED: ACETAMINOPHEN IV (For NPO) 1,000 MG in EMPTY BAG 1 BAG IVPB PRN (15:21)
--- NOTE | 2018-05-29 16:38 | P.GSCN ---
History of Present Illness Consult date: 05/29/18 Reason for Consult: Possible gastric sleeve leak the perigastric abscess History of present illness: This is a 38-year-old female who underwent laparoscopic sleeve gastrectomy by Dr. Jeet Nj. Patient had surgery performed approximately 20 days ago. She is admitted to the hospital with complaints of some abdominal pain. The patient was initially thought to have a urinary tract infection. Patient had a CAT scan performed which showed evidence of perigastric inflammation and phlegmon. The patient states that she feels slightly better today. She denies any significant abdominal pain. Past Medical History Past Medical History: No Reported History History of Any Multi-Drug Resistant Organisms: None Reported Additional Past Surgical History / Comment(s): Gastric sleeve 05/09/18 Past Anesthesia/Blood Transfusion Reactions: Postoperative Nausea & Vomiting ( PONV) Past Psychological History: No Psychological Hx Reported Smoking Status: Never smoker Past Alcohol Use History: None Reported Past Drug Use History: None Reported - Past Family History Mother Family Medical History: Diabetes Mellitus (Father), Hypertension (Father) Additional Family Medical History / Comment(s): Mother has no medical history. Patient has 2 children both are healthy ages 18 and 20 Father Family Medical History: Diabetes Mellitus, Hypertension Medications and Allergies Home Medications Medication Instructions Recorded Confirmed Type ALPRAZolam [Xanax] 1 mg PO TID PRN 05/26/18 05/26/18 History Acetaminophen [Tylenol Extra 500 mg PO Q6H PRN 05/26/18 05/26/18 History Strength] Ascorbic Acid [Vitamin C] 500 mg PO DAILY 05/26/18 05/26/18 History Calcium Carbonate [Calcium] 600 mg PO DAILY 05/26/18 05/26/18 History Multivitamin,Therapeutic [Thera] 1 tab PO DAILY 05/26/18 05/26/18 History Acetaminophen Tab [Tylenol] 650 mg PO Q6HR PRN tab 05/28/18 Rx Cephalexin [Keflex] 500 mg PO Q8HR #15 cap 05/28/18 Rx Allergies Allergy/AdvReac Type Severity Reaction Status Date / Time No Known Allergies Allergy Verified 05/26/18 18:48 Surgical - Exam Vital Signs Temp Pulse Resp BP Pulse Ox 100.3 F H 129 H 20 111/73 99 05/26/18 18:00 05/26/18 18:00 05/26/18 18:00 05/26/18 18:00 05/26/18 18:00 - General well developed, no distress - Eyes PERRL - ENT normal pinna - Neck no masses - Respiratory normal expansion - Cardiovascular Rhythm: regular - Abdomen Mild tenderness throughout. There is no rebound or guarding. There is no peritoneal signs. Abdomen: soft Results - Labs 05/29/18 07:47 05/29/18 07:47 Abnormal Lab Results - Last 24 Hours (Table) 05/29/18 05/29/18 Range/Units 07:47 07:47 WBC 16.8 H (3.8-10.6) k/uL RBC 3.34 L (3.80-5.40) m/uL Hgb 9.9 L (11.4-16.0) gm/dL Hct 30.3 L (34.0-46.0) % Neutrophils # 13.9 H (1.3-7.7) k/uL Monocytes # 1.1 H (0-1.0) k/uL Chloride 108 H (98-107) mmol/L BUN 3 L (7-17) mg/dL Calcium 8.0 L (8.4-10.2) mg/dL Total Protein 5.5 L (6.3-8.2) g/dL Albumin 2.5 L (3.5-5.0) g/dL Microbiology - Last 24 Hours (Table) 05/26/18 19:38 Blood Culture - Preliminary Blood 05/26/18 19:38 Blood Culture - Preliminary Blood No Growth after 48 hours Diabetes panel 05/29/18 Range/Units 07:47 Sodium 141 (137-145) mmol/L Potassium 3.7 (3.5-5.1) mmol/L Chloride 108 H (98-107) mmol/L Carbon Dioxide 23 (22-30) mmol/L BUN 3 L (7-17) mg/dL Creatinine 0.54 (0.52-1.04) mg/dL Glucose 78 (74-99) mg/dL Calcium 8.0 L (8.4-10.2) mg/dL AST 36 (14-36) U/L ALT 27 (9-52) U/L Alkaline Phosphatase 53 (38-126) U/L Total Protein 5.5 L (6.3-8.2) g/dL Albumin 2.5 L (3.5-5.0) g/dL Calcium panel 05/29/18 Range/Units 07:47 Calcium 8.0 L (8.4-10.2) mg/dL Albumin 2.5 L (3.5-5.0) g/dL Pituitary panel 05/29/18 Range/Units 07:47 Sodium 141 (137-145) mmol/L Potassium 3.7 (3.5-5.1) mmol/L Chloride 108 H (98-107) mmol/L Carbon Dioxide 23 (22-30) mmol/L BUN 3 L (7-17) mg/dL Creatinine 0.54 (0.52-1.04) mg/dL Glucose 78 (74-99) mg/dL Calcium 8.0 L (8.4-10.2) mg/dL Adrenal panel 05/29/18 Range/Units 07:47 Sodium 141 (137-145) mmol/L Potassium 3.7 (3.5-5.1) mmol/L Chloride 108 H (98-107) mmol/L Carbon Dioxide 23 (22-30) mmol/L BUN 3 L (7-17) mg/dL Creatinine 0.54 (0.52-1.04) mg/dL Glucose 78 (74-99) mg/dL Calcium 8.0 L (8.4-10.2) mg/dL Total Bilirubin 0.8 (0.2-1.3) mg/dL AST 36 (14-36) U/L ALT 27 (9-52) U/L Alkaline Phosphatase 53 (38-126) U/L Total Protein 5.5 L (6.3-8.2) g/dL Albumin 2.5 L (3.5-5.0) g/dL - Imaging CT scan - abdomen: report reviewed (Computed tomography scan the abdomen was reviewed with Dr. Vizcarra. There is evidence of a phlegmon near the gastric staple line. There is no obvious abscess this point.) Assessment and Plan Assessment: Status post sleeve gastrectomy. Patient has most likely had a very small gastric sleeve leak. Patient has a phlegmon associated with this. Her esophagram performed today shows no evidence of a leak. At this point I recommend continued observation and IV antibiotics. I have discussed the case with her surgeon Dr. Nj. The patient be closely observed. If she has any Meckel changes she may need exploratory laparotomy
--- NOTE | 2018-05-29 16:40 | FL ---
EXAMINATION TYPE: FL UGI w esophagus DATE OF EXAM: 05/29/2018 CLINICAL INDICATION: 38-year-old female gastric sleeve leak, left flank pain with fever and tachycard ia, original surgery performed [facility] on 05/09/2018. COMPARISON: Correlation CT 05/28/2018 Total Fluoroscopy Time: 1 minute 46 seconds. Total images: 31. Oral contrast: 50 mL [id number]. FINDINGS: The patient swallowed oral contrast without difficulty or delay. There is normal course, caliber, and motility of the esophagus without any evident filling defect. There is satisfactory passage of contrast from the esophagus into the stomach where postsurgical mcgill ges of sleeve gastrectomy are demonstrated. The patient was imaged and LPO, RPO, and are likely posit ioned both upright and with the table brought down to 30 degrees. There is no abnormal extravasation or extraluminal accumulation of contrast. The duodenal sweep appears normal. IMPRESSION: Status post sleeve gastrectomy. No evidence for active leak.
--- NOTE | 2018-05-29 20:25 | PN ---
PROGRESS NOTE DATE OF SERVICE: 05/29/2018 REASON FOR FOLLOWUP: Abdominal abscess. INTERVAL HISTORY: The patient did spike another fever this morning of 1O2. She is afebrile since then. The patient has been breathing comfortably. Pain to the right upper abdomen and shoulder area has resolved. Denies having any chest pain, shortness of breath or cough. No diarrhea. PHYSICAL EXAMINATION: Blood pressure 120/84 with a pulse of 92, temperature 97.6, T-max 102. She is 94% on room air. General description is a middle-aged female lying in bed in no distress. RESPIRATORY SYSTEM: Unlabored breathing. Clear to auscultation anteriorly. No wheeze or crackle. HEART: S1, S2. Regular rate and rhythm. ABDOMEN: Soft. No tenderness. EXTREMITIES: No edema of the feet. LABS: Hemoglobin 9.9 with a white count of 16.8 with a BUN of 3, creatinine 0.54. DIAGNOSTIC IMPRESSION AND PLAN: Patient admitted to hospital with sepsis. Source is likely abdominal abscess in this patient did have recent gastric sleeve surgery. She did have cough today with no evidence of any . She will continue with Zosyn and vancomycin at this point. If persistent fever, the patient will likely need drainage of that collection, which should be sent for culture, both aerobic and anaerobic. Continue with supportive care. MMODL / IJN: [id number] /
[2018-05-29] MEDS: LORazepam 2 MG/ML INJ IV PRN (23:12)
[2018-05-30] MEDS: PIPERACILLIN-TAZOBACTAM 3.375 GM in SODIUM CHLORIDE 0.9% 100 ML IVPB SCH ×3 (01:07→15:41)
[2018-05-30] MEDS: MORPHINE SULFATE 4 MG/ML SYRINGE IV PRN ×4 (01:07→21:41)
[2018-05-30] MEDS ORDERED: VANCOMYCIN TROUGH DUE 1 EACH MISC MISCELLANE ONE (04:00)
[2018-05-30 05:09] LABS: Calcium 8.2 mg/dL (8.4-10.2); Potassium 3.7 mmol/L (3.5-5.1)
[2018-05-30] MEDS: VANCOMYCIN 1,500 MG in SODIUM CHLORIDE 0.9% 250 ML IVPB SCH ×2 (05:20→05:35)
[2018-05-30] MEDS: SODIUM CHLORIDE 0.9% 1,000 ML IV SCH (05:39)
[2018-05-30] MEDS: PANTOPRAZOLE 40 MG/10 ML VIAL IVP SCH (08:01)
[2018-05-30] MEDS ORDERED: VANCOMYCIN IV PER PHARMACY 1 EACH MISC MISCELLANE PRN (09:02)
[2018-05-30] MEDS: DEXTROSE 5%-0.45% NACL 1,000 ML IV SCH (10:10)
--- NOTE | 2018-05-30 11:12 | P.PN ---
Subjective Progress Note Date: 05/30/18 This is a 38-year-old pleasant female who presented to the emergency room with a chief complaint of abdominal pain and fever. Patient had gastric sleeve surgery on 05/09/2018 by a surgeon in [place]. Patient states that she had experienced some discomfort post surgery however she did notice her heart rate being elevated over 100 at rest and not feeling well. Patient denies any congestion, cough, or sinus pressure. Patient was experienced back pain that radiated to her chest causing some shortness of breath. Patient also complains of epigastric abdominal pain. Patient called her surgeon to advised her to go to the emergency department secondary to the abdominal pain and fever concern for possible leak post surgery. Patient denies any nausea, vomiting, dysuria or hematuria patient since has had a small amount of diarrhea since the procedure. She is currently on a pure food diet and has not experienced any difficulty eating. She denies any drainage from her incisions or redness to the site. 05/28: Patient is resting comfortably in bed. She did have a temperature of 100.4 last night and heart rate still has been tachycardic. Patient dates that she is feeling much better. She has been using the incentive spirometer and has increased her number. She has also been up ambulating denies any shortness of breath with ambulation. Patient still is complaining of some lower back discomfort. WBC 16.4, hemoglobin 10.1. Patient denies any nausea, vomiting, diarrhea. Spoke with her surgeon from [facility] regarding treatment plan. 05/29: Today, patient's discharge was held due to continued elevation in white count, discharge was held and a CAT scan of the abdomen and pelvis was ordered that showed phlegmonous changes in the left upper quadrant surrounding the [place] gastric fundus which is poorly defined given the surrounding inflammatory and phlegmonous changes. Fluid attenuation is seen centrally that could represent abscess or gastric secretions within the [place] gastric fundus and phlegmonous changes may be postsurgical or infectious. Those consults with ID and general surgery were added. Dr. Elizondo is following the patient and antibiotics are currently Zosyn and vancomycin. Dr. Conte is on consult. Blood culture showing no growth after 48 hours. Mycoplasma is negative and Legionella is pending. IV fluids will be increased 100 mL per hour. 05/30: Patient has been seen by Dr. Conte and he feels she most likely had a very small gastric sleeve leak and phlegmon associated with this. Her esophagram performed today shows no evidence of a leak. He has recommended continuing observation and IV antibiotics. Patient will be monitored closely and if any changes may need exploratory laparotomy. Patient is to be strict nothing by mouth and no medications orally. Temperature max yesterday at 7 AM was 102 and since she has been afebrile. Her blood sugars have been running low at 70s and sodium is 146. IV fluids will be changed to D5 and half-normal saline at 75 mL per hour. Creatinine jumped to 1.72 secondary to vancomycin which was 37.5 trough level. Vancomycin has been discontinued for now. States she is feeling much better today. She denies pain in the abdomen. Recommend heating pad for back discomfort. She states she is better after a hot shower.. Review of systems Constitutional: Reports fatigue, denies fever, Denies chills, Denies malaise, Denies night sweats Eyes: denies blurred vision, denies pain Ears, nose, mouth and throat: Denies headache, Denies sinus pressure, Denies sore throat Cardiovascular: Denies chest pain, Denies dyspnea on exertion, Denies irregular heart beat, Denies leg edema, Denies palpitations, Denies shortness of breath Respiratory: Denies cough, denies sputum production Gastrointestinal: Denies abdominal pain, Denies constipation, Denies diarrhea, Denies loss of appetite, Denies nausea, Denies vomiting Genitourinary: Reports flank pain, Denies dysuria, Denies hematuria, Denies urgency Musculoskeletal: Denies myalgias Integumentary: Denies pruritus, Denies rash Neurological: Denies numbness, Denies weakness, + back discomfort Psychiatric: Denies anxiety, Denies depression Endocrine: Denies fatigue, Denies weight change Objective - Vital Signs Vital signs: Vital Signs Temp 99.2 F 05/30/18 07:00 Pulse 107 H 05/30/18 07:00 Resp 16 05/30/18 07:00 BP 120/77 05/30/18 07:00 Pulse Ox 96 05/30/18 07:00 Intake & Output 05/29/18 05/30/18 05/30/18 18:59 06:59 18:59 Intake Total 1050 1000 Balance 1050 1000 Intake: Intake, IV Titration 1050 1000 Amount Piperacillin-Tazobactam 3 200 200 .375 gm In Sodium Chloride 0.9% 100 ml @ 25 mls/hr IVPB Q8HR [facility] Rx# :[id number] Sodium Chloride 0.9% 1, 600 300 000 ml @ 100 mls/hr IV . Q10H [facility] Rx#:[id number] Vancomycin 1,500 mg In 250 500 Sodium Chloride 0.9% 250 ml @ 125 mls/hr IVPB Q8H [facility] Rx#:[id number] Other: Voiding Method Toilet # Voids 4 2 - Exam General appearance: Present: average body habitus, cooperative. Patient walking in room and appears to be in no distress. - EENT Eyes: Present: anicteric sclerae, EOMI, PERRLA ENT: Present: hearing grossly normal, NA/AT, normal oropharynx - Neck Neck: Present: normal ROM. Absent: lymphadenopathy - Respiratory Respiratory: bilateral: CTA, negative: diminished, dullness, rales, rhonchi, wheezing - Cardiovascular Rhythm: regular Heart sounds: normal: S1, S2 - Gastrointestinal General gastrointestinal: Present: normal bowel sounds, soft. Absent: tenderness - Integumentary Integumentary: Present: normal turgor - Neurologic Neurologic: Present: CNII-XII intact - Musculoskeletal Musculoskeletal: Present: gait normal, generalized weakness, strength equal bilaterally - Psychiatric Psychiatric: Present: A&O x's 3, appropriate affect, intact judgment & insight - Labs CBC & Chem 7: 05/29/18 07:47 05/30/18 03:48 Labs: Abnormal Lab Results - Last 24 Hours (Table) 05/30/18 05/30/18 Range/Units 03:48 03:48 Sodium 146 H (137-145) mmol/L Chloride 111 H (98-107) mmol/L Creatinine 1.72 H (0.52-1.04) mg/dL Glucose 71 L (74-99) mg/dL Calcium 8.2 L (8.4-10.2) mg/dL Vancomycin Trough 37.5 H* ug/mL Microbiology - Last 24 Hours (Table) 05/26/18 19:38 Blood Culture - Preliminary Blood No Growth after 72 hours 05/26/18 19:38 Blood Culture - Preliminary Blood Assessment and Plan Plan: 1. Sepsis secondary to abdominal abscess/phlegmon and possibly related to strep agalactia urinary tract infection. Consult with Dr. Elizondo appreciated. Dr. Conte is on consult. Antibiotics have been changed to Zosyn. IV fluids 100 mL per hour. 2. Pneumonia less likely. Antibiotics changed to Zosyn, continue incentive spirometer, Mycoplasma IgM negative, Legionella urinary antigen pending 3. Acute kidney injury secondary to vancomycin. Continue IV fluids. Vancomycin has been discontinued. 4. Morbid obesity status post gastric sleeve procedure. DVT prophylaxis ambulation GI prophylaxis. IV Protonix. Discharge plan: Home Impression and plan of care have been directed as dictated by the signing physician. Rhonda Rodriguez nurse practitioner acting as scribe for signing physician.
--- NOTE | 2018-05-30 11:42 | P.PN ---
Subjective Progress Note Date: 05/30/18 38-year-old female seen in follow-up visit. Patient states the abdominal pain has significantly improved. Able to take in a deep breath. . Repeat esophagram done on the reviewing the report no evidence of an active leak abdomen soft surgical incision site dry Patient underwent a laparoscopic sleeve gastrectomy by Dr. Jeet combs in [facility] approximately 20 days ago. Patient returned to the emergency room with abdominal pain tachycardia leukocytosis febrile with shortness of breath with epigastric discomfort. Patient states she notified her surgeon who advised the patient to go to the emergency room to be evaluated for the abdominal pain fever concerning for possible leak postsurgery. Objective - Vital Signs Vital signs: Vital Signs Temp 99.2 F 05/30/18 07:00 Pulse 107 H 05/30/18 07:00 Resp 16 05/30/18 07:00 BP 120/77 05/30/18 07:00 Pulse Ox 96 05/30/18 07:00 Intake & Output 05/29/18 05/30/18 05/30/18 18:59 06:59 18:59 Intake Total 1050 1000 Balance 1050 1000 Intake: Intake, IV Titration 1050 1000 Amount Piperacillin-Tazobactam 3 200 200 .375 gm In Sodium Chloride 0.9% 100 ml @ 25 mls/hr IVPB Q8HR [facility] Rx# :[id number] Sodium Chloride 0.9% 1, 600 300 000 ml @ 100 mls/hr IV . Q10H [facility] Rx#:[id number] Vancomycin 1,500 mg In 250 500 Sodium Chloride 0.9% 250 ml @ 125 mls/hr IVPB Q8H [facility] Rx#:[id number] Other: Voiding Method Toilet # Voids 4 2 - Exam Physical exam 38-year-old female ambulating in the room states abdominal pain has significantly improved Lungs adequate air movement bilaterally on room air Heart S1-S2 audible and regular Abdomen soft surgical tenderness appropriate surgical dressing sites dry reports no nausea vomiting no stool no difficulty in urinating nondistended Extremities no edema - Labs CBC & Chem 7: 05/29/18 07:47 05/30/18 03:48 Labs: Abnormal Lab Results - Last 24 Hours (Table) 05/30/18 05/30/18 Range/Units 03:48 03:48 Sodium 146 H (137-145) mmol/L Chloride 111 H (98-107) mmol/L Creatinine 1.72 H (0.52-1.04) mg/dL Glucose 71 L (74-99) mg/dL Calcium 8.2 L (8.4-10.2) mg/dL Vancomycin Trough 37.5 H* ug/mL Microbiology - Last 24 Hours (Table) 05/26/18 19:38 Blood Culture - Preliminary Blood No Growth after 72 hours 05/26/18 19:38 Blood Culture - Preliminary Blood Assessment and Plan Assessment: Impression Present on admission febrile tachycardic leukocytosis sepsis secondary to abdominal abscess/phlegmon related to strep agalactic urinary tract infection Morbid obesity due to excess calories status post laparoscopic post sleeve gastrectomy done at another facility 20 days prior Present on admission intractable nausea vomiting epigastric pain with a CAT scan showing evidence of perigastric inflammation and phlegmon Computed tomography scan of the abdomen pelvis report indicate evidence of a very small gastric sleeve leak with evidence of phlegmon near the gastric staple line no obvious abscess at this point Present on admission UTI with positive urine culture Plan Continue recommendations per infectious disease Continue observation Continue IV antibiotics as ordered Pain control Strict nothing by mouth Follow-up on cultures Further recommendations pending The above impression and plan of care have been discussed and directed by signing physician. Iman Pollack nurse practitioner acting as scribe for signing physician.
--- NOTE | 2018-05-30 23:41 | PN ---
PROGRESS NOTE DATE OF SERVICE: 05/30/2018 REASON FOR FOLLOWUP: Abdominal abscess. INTERVAL HISTORY: The patient's overall fever pattern has improved. The patient denies having any chest pain or shortness of breath or cough. No abdominal pain. No nausea, no vomiting and no diarrhea. PHYSICAL EXAMINATION: Her blood pressure is 121/76 with a pulse of 93, temperature 98.5. She is 93% on room air. General description is a middle-aged female up in the bed in no distress. RESPIRATORY SYSTEM: Unlabored breathing. Clear to auscultation anteriorly. HEART: S1, S2. Regular rate and rhythm. ABDOMEN: Soft. No tenderness. LABS: Creatinine has slightly jumped to 1.72. No CBC was done today. Blood culture has been negative. DIAGNOSTIC IMPRESSION AND PLAN: Patient with abdominal abscess with recent gastric sleeve surgery, likely gram- negative artur. Vancomycin to be discontinued. Kidney function to monitored closely. Continue the patient on Zosyn. If the patient continues to improve, patient will likely need outpatient IV antibiotic therapy on discharge. Continue with supportive care. MMODL / IJN: [id number] /
[2018-05-31] MEDS: PIPERACILLIN-TAZOBACTAM 3.375 GM in SODIUM CHLORIDE 0.9% 100 ML IVPB SCH ×2 (02:23→07:35)
[2018-05-31] MEDS: DEXTROSE 5%-0.45% NACL 1,000 ML IV SCH (02:24)
[2018-05-31] MEDS: MORPHINE SULFATE 4 MG/ML SYRINGE IV PRN ×3 (03:05→19:44)
[2018-05-31] MEDS: PANTOPRAZOLE 40 MG/10 ML VIAL IVP SCH (07:34)
[2018-05-31 08:20] LABS: Calcium 8.2 mg/dL (8.4-10.2); Potassium 3.7 mmol/L (3.5-5.1)
[2018-05-31 08:42] LABS: Basophils % (A) 0 %; Eosinophils # (A) 0.3 k/uL (0-0.7); Eosinophils % (A) 2 %; HCT 32.3 % (34.0-46.0); HGB 9.8 gm/dL (11.4-16.0); Hypochromasia Moderate; Lymphocytes # (A) 1.2 k/uL (1.0-4.8); Lymphocytes % (A) 8 %; MCH 28.7 pg (25.0-35.0); MCHC 30.3 g/dL (31.0-37.0); MCV 94.6 fL (80.0-100.0); Mean Platelet Volume 7.3; Monocytes # (A) 0.9 k/uL (0-1.0); Monocytes % (A) 6 %; Neutrophils # (A) 12.4 k/uL (1.3-7.7); Neutrophils % (A) 83 %; Platelet Count 541 k/uL (150-450); RBC 3.41 m/uL (3.80-5.40); RDW 13.5 % (11.5-15.5); WBC 15.1 k/uL (3.8-10.6)
[2018-05-31] MEDS: DEXTROSE 5% IN WATER 1,000 ML IV SCH ×2 (11:30→23:04)
--- NOTE | 2018-05-31 11:51 | P.PN ---
Subjective Progress Note Date: 05/31/18 This is a 38-year-old pleasant female who presented to the emergency room with a chief complaint of abdominal pain and fever. Patient had gastric sleeve surgery on 05/09/2018 by a surgeon in [place]. Patient states that she had experienced some discomfort post surgery however she did notice her heart rate being elevated over 100 at rest and not feeling well. Patient denies any congestion, cough, or sinus pressure. Patient was experienced back pain that radiated to her chest causing some shortness of breath. Patient also complains of epigastric abdominal pain. Patient called her surgeon to advised her to go to the emergency department secondary to the abdominal pain and fever concern for possible leak post surgery. Patient denies any nausea, vomiting, dysuria or hematuria patient since has had a small amount of diarrhea since the procedure. She is currently on a pure food diet and has not experienced any difficulty eating. She denies any drainage from her incisions or redness to the site. 05/28: Patient is resting comfortably in bed. She did have a temperature of 100.4 last night and heart rate still has been tachycardic. Patient dates that she is feeling much better. She has been using the incentive spirometer and has increased her number. She has also been up ambulating denies any shortness of breath with ambulation. Patient still is complaining of some lower back discomfort. WBC 16.4, hemoglobin 10.1. Patient denies any nausea, vomiting, diarrhea. Spoke with her surgeon from [facility] regarding treatment plan. 05/29: Today, patient's discharge was held due to continued elevation in white count, discharge was held and a CAT scan of the abdomen and pelvis was ordered that showed phlegmonous changes in the left upper quadrant surrounding the [place] gastric fundus which is poorly defined given the surrounding inflammatory and phlegmonous changes. Fluid attenuation is seen centrally that could represent abscess or gastric secretions within the [place] gastric fundus and phlegmonous changes may be postsurgical or infectious. Those consults with ID and general surgery were added. Dr. Elizondo is following the patient and antibiotics are currently Zosyn and vancomycin. Dr. Conte is on consult. Blood culture showing no growth after 48 hours. Mycoplasma is negative and Legionella is pending. IV fluids will be increased 100 mL per hour. 05/30: Patient has been seen by Dr. Conte and he feels she most likely had a very small gastric sleeve leak and phlegmon associated with this. Her esophagram performed today shows no evidence of a leak. He has recommended continuing observation and IV antibiotics. Patient will be monitored closely and if any changes may need exploratory laparotomy. Patient is to be strict nothing by mouth and no medications orally. Temperature max yesterday at 7 AM was 102 and since she has been afebrile. Her blood sugars have been running low at 70s and sodium is 146. IV fluids will be changed to D5 and half-normal saline at 75 mL per hour. Creatinine jumped to 1.72 secondary to vancomycin which was 37.5 trough level. Vancomycin has been discontinued for now. States she is feeling much better today. She denies pain in the abdomen. Recommend heating pad for back discomfort. She states she is better after a hot shower.. 05/31: Patient denies any new complaints. She denies any abdominal pain. She is very anxious for a diet to be started. Noted her white count is 15.1, sodium 148, BUN 13 and creatinine 2.39. We will change dosing on Zosyn every 12 hours. IV fluids changed to D5W with a fluid bolus followed by 125 mL per hour. Recheck lab work in the morning. Review of systems Constitutional: Reports fatigue, denies fever, Denies chills, Denies malaise, Denies night sweats Eyes: denies blurred vision, denies pain Ears, nose, mouth and throat: Denies headache, Denies sinus pressure, Denies sore throat Cardiovascular: Denies chest pain, Denies dyspnea on exertion, Denies irregular heart beat, Denies leg edema, Denies palpitations, Denies shortness of breath Respiratory: Denies cough, denies sputum production Gastrointestinal: Denies abdominal pain, Denies constipation, Denies diarrhea, Denies loss of appetite, Denies nausea, Denies vomiting Genitourinary: Reports flank pain, Denies dysuria, Denies hematuria, Denies urgency Musculoskeletal: Denies myalgias, no weakness Integumentary: Denies pruritus, Denies rash Neurological: Denies numbness, Denies weakness, + back discomfort Psychiatric: Denies anxiety, Denies depression Endocrine: Denies fatigue, Denies weight change Objective - Vital Signs Vital signs: Vital Signs Temp 98.2 F 05/30/18 23:05 Pulse 93 05/30/18 23:05 Resp 16 05/30/18 23:05 BP 131/85 05/30/18 23:05 Pulse Ox 95 05/30/18 23:05 Intake & Output 05/30/18 05/31/18 05/31/18 18:59 06:59 18:59 Intake Total 500 725 Balance 500 725 Weight 87.543 kg Intake: Intake, IV Titration 500 725 Amount Dextrose 5%-0.45% NaCl 1, 300 725 000 ml @ 75 mls/hr IV . [id number] [facility] Rx#:[id number] Piperacillin-Tazobactam 3 200 .375 gm In Sodium Chloride 0.9% 100 ml @ 25 mls/hr IVPB Q8HR [facility] Rx# :[id number] Other: Voiding Method Toilet # Voids 4 3 - Exam General appearance: Present: average body habitus, cooperative. Patient walking in room and appears to be in no distress. - EENT Eyes: Present: anicteric sclerae, EOMI, PERRLA ENT: Present: hearing grossly normal, NA/AT, normal oropharynx - Neck Neck: Present: normal ROM. Absent: lymphadenopathy - Respiratory Respiratory: bilateral: CTA, negative: diminished, dullness, rales, rhonchi, wheezing - Cardiovascular Rhythm: regular Heart sounds: normal: S1, S2 - Gastrointestinal General gastrointestinal: Present: normal bowel sounds, soft. Absent: tenderness, masses - Integumentary Integumentary: Present: normal turgor - Neurologic Neurologic: Present: CNII-XII intact - Musculoskeletal Musculoskeletal: Present: gait normal, generalized weakness, strength equal bilaterally - Psychiatric Psychiatric: Present: A&O x's 3, appropriate affect, intact judgment & insight - Labs CBC & Chem 7: 05/31/18 06:50 05/31/18 06:50 Labs: Microbiology - Last 24 Hours (Table) 05/26/18 19:38 Blood Culture - Preliminary Blood No Growth after 96 hours 05/29/18 08:38 Blood Culture - Preliminary Blood No Growth after 24 hours 05/29/18 08:46 Blood Culture - Preliminary Blood No Growth after 24 hours Assessment and Plan Plan: 1. Sepsis secondary to abdominal abscess/phlegmon and possibly related to strep agalactia urinary tract infection. Consult with Dr. Mikhail appreciated. Dr. Conte is on consult. Antibiotics have been changed to Zosyn. IV fluids 100 mL per hour. 2. Pneumonia less likely. Antibiotics changed to Zosyn, continue incentive spirometer, Mycoplasma IgM negative, Legionella urinary antigen pending 3. Acute kidney injury secondary to vancomycin. Continue IV fluids changed to D5W. Vancomycin has been discontinued. Zosyn will be dose adjusted. 4. Morbid obesity status post gastric sleeve procedure. DVT prophylaxis ambulation GI prophylaxis. IV Protonix. Discharge plan: Home Impression and plan of care have been directed as dictated by the signing physician. Rhonda Rodriguez nurse practitioner acting as scribe for signing physician.
--- NOTE | 2018-05-31 15:40 | P.PN ---
Subjective Progress Note Date: 05/31/18 38-year-old female up ambulating in the room states tolerating the diet no nausea no vomiting. Surgical incision sites no redness noted states passing gas and had a bowel movement temp this morning 99.2 denying any abdominal discomfort underwent a laparoscopic sleeve gastrectomy by Dr. Jeet combs in [facility] approximately 20 days ago. Patient returned to the emergency room with abdominal pain tachycardia leukocytosis febrile with shortness of breath with epigastric discomfort. Patient states she notified her surgeon who advised the patient to go to the emergency room to be evaluated for the abdominal pain fever concerning for possible leak postsurgery Objective - Vital Signs Vital signs: Vital Signs Temp 99.2 F 05/31/18 15:00 Pulse 91 05/31/18 15:00 Resp 16 05/31/18 15:00 BP 135/85 05/31/18 15:00 Pulse Ox 99 05/31/18 15:00 Intake & Output 05/30/18 05/31/18 05/31/18 18:59 06:59 18:59 Intake Total 037 821 8380 Balance 071 803 4375 Weight 87.543 kg Intake: IV 500 dextrose 5% bolus 500 Intake, IV Titration 985 425 2724 Amount Dextrose 5% in Water 1, 1000 000 ml @ 125 mls/hr IV . Q8H [facility] Rx#:[id number] Dextrose 5%-0.45% NaCl 1, 300 725 000 ml @ 75 mls/hr IV . [id number] [facility] Rx#:[id number] Piperacillin-Tazobactam 3 100 .375 gm In Sodium Chloride 0.9% 100 ml @ 25 mls/hr IVPB Q12HR [facility] Rx #:[id number] Piperacillin-Tazobactam 3 200 .375 gm In Sodium Chloride 0.9% 100 ml @ 25 mls/hr IVPB Q8HR [facility] Rx# :[id number] Other: Voiding Method Toilet # Voids 4 3 1 - Exam Physical exam 38-year-old female ambulating in the room states abdominal pain has significantly improved reports no nausea vomiting no epigastric discomfort Lungs adequate air movement bilaterally on room air no cough noted Heart S1-S2 audible and regular no murmur denying chest pain Abdomen soft surgical tenderness appropriate surgical sites dry reports no nausea vomiting states had a bowel movement this morning passing gas no difficulty in urinating nondistended Extremities no edema - Labs CBC & Chem 7: 05/31/18 06:50 05/31/18 06:50 Labs: Abnormal Lab Results - Last 24 Hours (Table) 05/31/18 05/31/18 Range/Units 06:50 06:50 WBC 15.1 H (3.8-10.6) k/uL RBC 3.41 L (3.80-5.40) m/uL Hgb 9.8 L (11.4-16.0) gm/dL Hct 32.3 L (34.0-46.0) % MCHC 30.3 L (31.0-37.0) g/dL Plt Count 541 H (150-450) k/uL Neutrophils # 12.4 H (1.3-7.7) k/uL Sodium 148 H (137-145) mmol/L Chloride 116 H (98-107) mmol/L Creatinine 2.39 H (0.52-1.04) mg/dL Glucose 100 H (74-99) mg/dL Calcium 8.2 L (8.4-10.2) mg/dL Microbiology - Last 24 Hours (Table) 05/26/18 19:38 Blood Culture - Preliminary Blood 05/29/18 08:38 Blood Culture - Preliminary Blood No Growth after 48 hours 05/29/18 08:46 Blood Culture - Preliminary Blood No Growth after 48 hours 05/26/18 19:38 Blood Culture - Preliminary Blood No Growth after 96 hours Assessment and Plan Assessment: Impression Present on admission febrile tachycardic leukocytosis sepsis secondary to abdominal abscess/phlegmon related to strep agalactic urinary tract infection Morbid obesity due to excess calories status post laparoscopic post sleeve gastrectomy done at another facility 20 days prior Present on admission intractable nausea vomiting epigastric pain with a CAT scan showing evidence of perigastric inflammation and phlegmon Computed tomography scan of the abdomen pelvis report indicate evidence of a very small gastric sleeve leak with evidence of phlegmon near the gastric staple line no obvious abscess at this point Present on admission UTI with positive urine culture Acute kidney injury suspect due to vancomycin improving vancomycin. Stopped with Zosyn added Plan Continue recommendations per infectious disease Continue observation Continue IV antibiotics as ordered Pain control Clear liquid bariatric diet Follow-up on cultures Further recommendations pending The above impression and plan of care have been discussed and directed by signing physician. Iman Pollack nurse practitioner acting as scribe for signing physician.
[2018-05-31] MEDS: cefTRIAXone 2,000 MG in SODIUM CHLORIDE 0.9% 100 ML IVPB SCH (16:34)
[2018-05-31] MEDS: metroNIDAZOLE-NS PMX 500 MG in SALINE 1 100ML.BAG IVPB SCH (17:48)
[2018-05-31] MEDS ORDERED: PIPERACILLIN-TAZOBACTAM 3.375 GM in SODIUM CHLORIDE 0.9% 100 ML IVPB SCH (21:00)
--- NOTE | 2018-05-31 21:54 | PN ---
PROGRESS NOTE DATE OF SERVICE: 05/31/2018. REASON FOR FOLLOWUP: Abdominal abscess. INTERVAL HISTORY: The patient is afebrile. Her pain to the right upper quadrant is currently controlled. Denies having any chest pain or shortness of breath or cough. No nausea, vomiting and no diarrhea. EXAMINATION: Blood pressure is 151/88, with a pulse of 83, temperature of 99, she is 96% on room air. GENERAL DESCRIPTION: A middle-aged female lying in bed in no distress. RESPIRATORY SYSTEM: Unlabored breathing. Clear to auscultation anteriorly. HERAT: Heart S1, S2. Regular rate and rhythm. ABDOMEN: Soft, no tenderness. EXTREMITIES: No edema of the feet. LABS: Hemoglobin is 9.8, white count 15.1, BUN of 13, creatinine is 2.39. Blood culture has been negative. DIAGNOSTIC IMPRESSION AND PLAN: Patient with abdominal sepsis in the patient who did have recent gastric sleeve surgery with more formation and no drainable abscess. The esophagram did not show any evidence of leakage. She has been started back on a bariatric clear liquid diet. The patient's antibiotics will be adjusted to Rocephin 2 g daily in addition to the Flagyl with the plan for short course of IV antibiotic therapy. The patient responded to it. Zosyn has been discontinued. Clinically doubt this contributed to any of her elevated creatinine, which is more likely from her vancomycin that has already been discontinued. Encouraged to increase her fluid intake as well as IV fluids. Repeat the labs tomorrow. Continue supportive care. MMODL / IJN: [id number] /
[2018-06-01] MEDS: metroNIDAZOLE-NS PMX 500 MG in SALINE 1 100ML.BAG IVPB SCH ×3 (01:39→16:28)
[2018-06-01] MEDS: MORPHINE SULFATE 4 MG/ML SYRINGE IV PRN ×4 (01:52→22:44)
[2018-06-01] MEDS: DEXTROSE 5% IN WATER 1,000 ML IV SCH ×3 (02:06→20:37)
[2018-06-01 08:47] LABS: HCT 30.9 % (34.0-46.0); HGB 9.7 gm/dL (11.4-16.0); Hypochromasia Moderate; MCH 29.5 pg (25.0-35.0); MCHC 31.4 g/dL (31.0-37.0); MCV 94.1 fL (80.0-100.0); Mean Platelet Volume 7.4; Platelet Count 488 k/uL (150-450); RBC 3.29 m/uL (3.80-5.40); RDW 13.7 % (11.5-15.5); WBC 15.1 k/uL (3.8-10.6)
[2018-06-01 08:59] LABS: Calcium 7.9 mg/dL (8.4-10.2); Potassium 3.5 mmol/L (3.5-5.1)
[2018-06-01] MEDS: PANTOPRAZOLE 40 MG/10 ML VIAL IVP SCH (09:53)
--- NOTE | 2018-06-01 11:15 | P.PN ---
Subjective Progress Note Date: 06/01/18 This is a 38-year-old female patient of Dr. Fernández who presented to the emergency room with a chief complaint of abdominal pain and fever. Patient had gastric sleeve surgery on 05/09/2018 by a surgeon in [place]. Patient states that she had experienced some discomfort post surgery however she did notice her heart rate being elevated over 100 at rest and not feeling well. Patient denies any congestion, cough, or sinus pressure. Patient was experienced back pain that radiated to her chest causing some shortness of breath. Patient also complains of epigastric abdominal pain. Patient called her surgeon to advised her to go to the emergency department secondary to the abdominal pain and fever concern for possible leak post surgery. Patient denies any nausea, vomiting, dysuria or hematuria patient since has had a small amount of diarrhea since the procedure. She is currently on a pure food diet and has not experienced any difficulty eating. She denies any drainage from her incisions or redness to the site. 05/28: Patient is resting comfortably in bed. She did have a temperature of 100.4 last night and heart rate still has been tachycardic. Patient dates that she is feeling much better. She has been using the incentive spirometer and has increased her number. She has also been up ambulating denies any shortness of breath with ambulation. Patient still is complaining of some lower back discomfort. WBC 16.4, hemoglobin 10.1. Patient denies any nausea, vomiting, diarrhea. Spoke with her surgeon from [facility] regarding treatment plan. 05/29: Today, patient's discharge was held due to continued elevation in white count, discharge was held and a CAT scan of the abdomen and pelvis was ordered that showed phlegmonous changes in the left upper quadrant surrounding the augustine gastric fundus which is poorly defined given the surrounding inflammatory and phlegmonous changes. Fluid attenuation is seen centrally that could represent abscess or gastric secretions within the augustine gastric fundus and phlegmonous changes may be postsurgical or infectious. Those consults with ID and general surgery were added. Dr. Elizondo is following the patient and antibiotics are currently Zosyn and vancomycin. Dr. Conte is on consult. Blood culture showing no growth after 48 hours. Mycoplasma is negative and Legionella is pending. IV fluids will be increased 100 mL per hour. 05/30: Patient has been seen by Dr. Conte and he feels she most likely had a very small gastric sleeve leak and phlegmon associated with this. Her esophagram performed today shows no evidence of a leak. He has recommended continuing observation and IV antibiotics. Patient will be monitored closely and if any changes may need exploratory laparotomy. Patient is to be strict nothing by mouth and no medications orally. Temperature max yesterday at 7 AM was 102 and since she has been afebrile. Her blood sugars have been running low at 70s and sodium is 146. IV fluids will be changed to D5 and half-normal saline at 75 mL per hour. Creatinine jumped to 1.72 secondary to vancomycin which was 37.5 trough level. Vancomycin has been discontinued for now. States she is feeling much better today. She denies pain in the abdomen. Recommend heating pad for back discomfort. She states she is better after a hot shower.. 05/31: Patient denies any new complaints. She denies any abdominal pain. She is very anxious for a diet to be started. Noted her white count is 15.1, sodium 148, BUN 13 and creatinine 2.39. We will change dosing on Zosyn every 12 hours. IV fluids changed to D5W with a fluid bolus followed by 125 mL per hour. Recheck lab work in the morning. 06/01: Patient has been started on a bariatric clear diet with no plan to advance today. Dr. Elizondo changed antibiotics to Rocephin and Flagyl. White count is 15.1, sodium slightly improved at 146, chloride 114, creatinine 2.31. Hemoglobin is at 9.7. Dr Conte has ordered CT of the abdomen. Patient denies any abdominal pain. She does complain of flank pain. She is urinating sufficiently and IV fluids will be decreased to 75. Review of systems Constitutional: Reports fatigue, denies fever, Denies chills, Denies malaise, Denies night sweats Eyes: denies blurred vision, denies pain Ears, nose, mouth and throat: Denies headache, Denies sinus pressure, Denies sore throat Cardiovascular: Denies chest pain, Denies dyspnea on exertion, Denies irregular heart beat, Denies leg edema, Denies palpitations, Denies shortness of breath Respiratory: Denies cough, denies sputum production Gastrointestinal: Denies abdominal pain, Denies constipation, Denies diarrhea, Denies loss of appetite, Denies nausea, Denies vomiting Genitourinary: Reports flank pain, Denies dysuria, Denies hematuria, Denies urgency. Complains of flank pain. Musculoskeletal: Denies myalgias, no weakness Integumentary: Denies pruritus, Denies rash Neurological: Denies numbness, Denies weakness, + back discomfort Psychiatric: Denies anxiety, Denies depression Endocrine: Denies fatigue, Denies weight change Objective - Vital Signs Vital signs: Vital Signs Temp 99 F 06/01/18 07:00 Pulse 88 06/01/18 07:00 Resp 12 06/01/18 07:00 BP 123/79 06/01/18 07:00 Pulse Ox 95 06/01/18 07:00 Intake & Output 05/31/18 06/01/18 06/01/18 18:59 06:59 18:59 Intake Total 1600 2000 Balance 1600 2000 Intake: IV 500 dextrose 5% bolus 500 Intake, IV Titration 1100 2000 Amount Dextrose 5% in Water 1, 1000 2000 000 ml @ 125 mls/hr IV . Q8H [facility] Rx#:[id number] Piperacillin-Tazobactam 3 100 .375 gm In Sodium Chloride 0.9% 100 ml @ 25 mls/hr IVPB Q12HR [facility] Rx #:[id number] Other: Voiding Method Toilet # Voids 1 3 - Exam General appearance: Present: average body habitus, cooperative. Patient walking in room and appears to be in no distress. - EENT Eyes: Present: anicteric sclerae, EOMI, PERRLA ENT: Present: hearing grossly normal, NA/AT, normal oropharynx - Neck Neck: Present: normal ROM. Absent: lymphadenopathy - Respiratory Respiratory: bilateral: rhonchi, negative: diminished, dullness, rales, rhonchi , wheezing - Cardiovascular Rhythm: regular Heart sounds: normal: S1, S2 - Gastrointestinal General gastrointestinal: Present: normal bowel sounds, soft. Absent: tenderness, masses - Integumentary Integumentary: Present: normal turgor - Neurologic Neurologic: Present: CNII-XII intact - Musculoskeletal Musculoskeletal: Present: gait normal, generalized weakness, strength equal bilaterally - Psychiatric Psychiatric: Present: A&O x's 3, appropriate affect, intact judgment & insight - Labs CBC & Chem 7: 06/01/18 07:14 06/01/18 07:14 Labs: Abnormal Lab Results - Last 24 Hours (Table) 05/31/18 05/31/18 Range/Units 06:50 06:50 WBC 15.1 H (3.8-10.6) k/uL RBC 3.41 L (3.80-5.40) m/uL Hgb 9.8 L (11.4-16.0) gm/dL Hct 32.3 L (34.0-46.0) % MCHC 30.3 L (31.0-37.0) g/dL Plt Count 541 H (150-450) k/uL Neutrophils # 12.4 H (1.3-7.7) k/uL Sodium 148 H (137-145) mmol/L Chloride 116 H (98-107) mmol/L Creatinine 2.39 H (0.52-1.04) mg/dL Glucose 100 H (74-99) mg/dL Calcium 8.2 L (8.4-10.2) mg/dL Microbiology - Last 24 Hours (Table) 05/26/18 19:38 Blood Culture - Preliminary Blood No Growth after 120 hours 05/26/18 19:38 Blood Culture - Preliminary Blood 05/29/18 08:38 Blood Culture - Preliminary Blood No Growth after 48 hours 05/29/18 08:46 Blood Culture - Preliminary Blood No Growth after 48 hours Assessment and Plan Plan: 1. Sepsis secondary to abdominal abscess/phlegmon and possibly related to strep agalactia urinary tract infection. Consult with Dr. Mikhail hunter. Dr. Conte is on consult. Antibiotics have been changed to ceftriaxone and Flagyl. IV fluids decreased to 75 mL per hour. 2. Pneumonia less likely. Antibiotics changed to ceftriaxone and Flagyl, continue incentive spirometer, Mycoplasma IgM negative, Legionella urinary antigen pending 3. Acute kidney injury secondary to vancomycin. Continue IV fluids changed to D5W. Vancomycin has been discontinued. Continue to monitor kidney function daily. 4. Morbid obesity status post gastric sleeve procedure. 5. Anemia most likely secondary to acute kidney injury. DVT prophylaxis ambulation GI prophylaxis. IV Protonix. Discharge plan: Home Impression and plan of care have been directed as dictated by the signing physician. Rhonda Rodriguez nurse practitioner acting as scribe for signing physician.
[2018-06-01] MEDS ORDERED: IOPAMIDOL-300 CONTRAST 30 ML VIAL (ORAL USE) PO PRN (12:16)
[2018-06-01] MEDS: cefTRIAXone 2,000 MG in SODIUM CHLORIDE 0.9% 100 ML IVPB SCH (12:25)
--- NOTE | 2018-06-01 16:46 | CT ---
EXAMINATION TYPE: CT abdomen pelvis wo con DATE OF EXAM: 06/01/2018 COMPARISON: CT dated 05/28/2018 and upper GI dated 05/29/2018 HISTORY: Nausea and vomiting, recent gastric sleeve CT DLP: 796.9 mGycm Automated exposure control for dose reduction was used. TECHNIQUE: Helical acquisition of images was performed from the lung bases through the pelvis. FINDINGS: LUNG BASES: Redemonstration of a small left pleural effusion and trace right pleural effusion with bi basilar atelectasis. LIVER/GB: Unremarkable unenhanced morphology. No cholelithiasis. PANCREAS: No significant abnormality is seen. SPLEEN: No significant abnormality is seen. ADRENALS: No significant abnormality is seen. KIDNEYS: Unremarkable unenhanced morphology without nephrolithiasis. ADENOPATHY: Limited evaluation without intravenous contrast, however no gross evidence of adenopathy is seen. REPRODUCTIVE ORGANS: Again there is prominence of the lower uterine segment/cervix and correlation wi th direct visualization as discussed on the prior exams are recommended. URINARY BLADDER: No significant abnormality is seen. 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 BOWEL: There is improved degree of phlegmonous changes surrounding the cranial aspect of the sleeve gastrectomy near the splenic hilum and cranial to the splenic hilum from axial image 8 through 24. No extravasation of contrast or pneumoperitoneum is seen in this region or throughout the abdomen. Appe ndix is contrast-filled and within normal limits. No dilated large or small bowel to suggest obstruct ion. Contrast extends into the large bowel. Small bowel loops are unopacified. IMPRESSION: IMPROVEMENT IN DEGREE OF PHLEGMONOUS CHANGES SURROUNDING THE SURGICALLY EXCLUDED GASTRIC FUNDUS STATU S POST GASTRIC SLEEVE. NO PNEUMOPERITONEUM OR EXTRAVASATION OF CONTRAST IS APPRECIATED. THE PREVIOUSL Y SEEN CENTRAL FLUID ATTENUATED COMPONENT HAS ALSO DECREASED IN THE INTERIM.
--- NOTE | 2018-06-01 17:00 | P.PN ---
Progress Note - Text Progress Note Date: 06/01/18 the patient states she feels slightly better. She is tolerating clear liquid Her creatinine has increased slightly over the last several days. He is currently in the 2.3 range. On exam her vital signs are stable. Her abdomen is soft. There is some minimal tenderness in the left flank. The patient's repeat CAT scan shows improvement in the phlegmonous change in the left upper quadrant. There is no evidence of any leak currently of her gastric sleeve. Patient remain on clear liquid diet. We will give her a fluid bolus today for her creatinine. [facility]
[2018-06-01] MEDS: LORazepam 2 MG/ML INJ IV PRN (21:28)
--- NOTE | 2018-06-01 23:13 | PN ---
PROGRESS NOTE DATE OF SERVICE: 06/01/2018 REASON FOR FOLLOWUP: Post-surgical abdominal collection/abscess. INTERVAL HISTORY: The patient is afebrile. She has been tolerating her clear liquid diet. No significant chest pain, shortness of breath or cough. No abdominal pain and no diarrhea. PHYSICAL EXAMINATION: Blood pressure 132/84 with a pulse of 80, temperature of 99.1. She is 92% on room air. General description is a middle-aged female up in the bed in no distress. RESPIRATORY SYSTEM: Unlabored breathing. Decreased breath sounds at the bases. No wheeze. HEART: S1, S2. Regular rate and rhythm. ABDOMEN: Soft. No tenderness. EXTREMITIES: No edema of the feet. LABS: Hemoglobin 9.3, white count 15.1 with BUN of 9, creatinine 2.31. She did have a CT of abdomen and pelvis that showed overall decrease in the phlegmonous changes. DIAGNOSTIC IMPRESSION AND PLAN: Patient with postoperative sepsis with a fever and leukocytosis in a patient who recently did have a gastric sleeve surgery with phlegmonous changes, no drainable abscess. She has been treated medically. Repeat CT scan did show improvement; however, the white count remains elevated. Will add Diflucan 200 mg daily. Continue Rocephin and Flagyl at this point. Repeat tomorrow. She will likely need a midline for for outpatient IV antibiotic therapy. Continue with supportive care. MMODL / IJN: [id number] /
[2018-06-01] MEDS: FLUCONAZOLE IN NACL,ISO-OSM 200 MG in SALINE 1 100ML.BAG IVPB SCH (23:32)
[2018-06-02] MEDS: metroNIDAZOLE-NS PMX 500 MG in SALINE 1 100ML.BAG IVPB SCH ×3 (00:37→16:08)
[2018-06-02] MEDS: DEXTROSE 5% IN WATER 1,000 ML IV SCH ×2 (07:36→22:07)
[2018-06-02] MEDS: ONDANSETRON 4 MG/2 ML VIAL IVP PRN (07:39)
[2018-06-02 07:50] LABS: HCT 30.2 % (34.0-46.0); HGB 9.7 gm/dL (11.4-16.0); Hypochromasia Slight; MCH 29.5 pg (25.0-35.0); MCV 92.2 fL (80.0-100.0); Mean Platelet Volume 6.8; Platelet Count 505 k/uL (150-450); RBC 3.28 m/uL (3.80-5.40); RDW 13.8 % (11.5-15.5); WBC 13.7 k/uL (3.8-10.6)
[2018-06-02 08:00] LABS: Calcium 7.8 mg/dL (8.4-10.2); Potassium 3.2 mmol/L (3.5-5.1)
[2018-06-02] MEDS: PANTOPRAZOLE 40 MG/10 ML VIAL IVP SCH (08:47)
[2018-06-02] MEDS: cefTRIAXone 2,000 MG in SODIUM CHLORIDE 0.9% 100 ML IVPB SCH (08:47)
--- NOTE | 2018-06-02 10:09 | P.PN ---
Subjective Progress Note Date: 06/02/18 38-year-old female resting in bed. Patient reports that there is a noted improvement in the left upper quadrant flank area that the pain has decreased. Does state having frequent stools. Creatinine this morning 2.27. Did note the potassium 3.2. White count 13.7. Afebrile. States urinating no difficulty known. Reportedly is tolerating a diet of clear liquids patients being followed by infectious disease Objective - Vital Signs Vital signs: Vital Signs Temp 99.3 F 06/02/18 07:00 Pulse 81 06/02/18 07:00 Resp 16 06/01/18 23:05 BP 135/82 06/02/18 07:00 Pulse Ox 93 L 06/02/18 07:00 Intake & Output 06/01/18 06/02/18 06/02/18 18:59 06:59 18:59 Intake Total 1400 800 420 Balance 1400 800 420 Weight 87.543 kg 87.543 kg Intake: Intake, IV Titration 900 800 Amount Dextrose 5% in Water 1, 900 600 000 ml @ 75 mls/hr IV . [id number] [facility] Rx#:[id number] Fluconazole in NaCl,Iso- 100 Osm 200 mg In Saline 1 100ml.bag @ 100 mls/hr IVPB DAILY@2100 [facility] Rx#: [id number] PMX 500 100 mg In Saline 1 100ml.bag @ 100 mls/hr IVPB Q8HR [facility] Rx#:[id number] Oral 500 420 Other: Voiding Method Toilet Toilet # Voids 2 - Exam Physical exam 38-year-old female resting in bed appearing in no acute distress Lungs adequate air movement bilaterally on room air Heart S1-S2 audible Abdomen soft denying any tenderness to the left upper quadrant reports having frequent watery stools this morning denies nausea no vomiting surgical tenderness appropriate not distended bowel tones present states urinating no difficulty Extremities no edema - Labs CBC & Chem 7: 06/02/18 06:52 06/02/18 06:52 Labs: Abnormal Lab Results - Last 24 Hours (Table) 06/02/18 06/02/18 Range/Units 06:52 06:52 WBC 13.7 H (3.8-10.6) k/uL RBC 3.28 L (3.80-5.40) m/uL Hgb 9.7 L (11.4-16.0) gm/dL Hct 30.2 L (34.0-46.0) % Plt Count 505 H (150-450) k/uL Sodium 146 H (137-145) mmol/L Potassium 3.2 L (3.5-5.1) mmol/L Chloride 115 H (98-107) mmol/L Creatinine 2.27 H (0.52-1.04) mg/dL Calcium 7.8 L (8.4-10.2) mg/dL Microbiology - Last 24 Hours (Table) 05/26/18 19:38 Blood Culture - Final Blood No Growth after 144 hours 05/26/18 19:38 Blood Culture - Final Blood 05/29/18 08:38 Blood Culture - Preliminary Blood No Growth after 72 hours 05/29/18 08:46 Blood Culture - Preliminary Blood No Growth after 72 hours Assessment and Plan Assessment: Impression Present on admission febrile tachycardic leukocytosis sepsis secondary to abdominal abscess/phlegmon related to strep agalactic urinary tract infection Morbid obesity due to excess calories status post laparoscopic post sleeve gastrectomy done at another facility 20 days prior Present on admission intractable nausea vomiting epigastric pain with a CAT scan showing evidence of perigastric inflammation and phlegmon Computed tomography scan of the abdomen pelvis report indicate evidence of a very small gastric sleeve leak with evidence of phlegmon near the gastric staple line no obvious abscess at this point Present on admission UTI with positive urine culture Acute kidney injury suspect due to vancomycin improving vancomycin. Stopped with Zosyn added Plan Send stool for C. diff Continue recommendations per infectious disease Continue observation Continue IV antibiotics as ordered Pain control Clear liquid bariatric diet Follow-up on cultures Further recommendations pending The above impression and plan of care have been discussed and directed by signing physician. Iman Pollack nurse practitioner acting as scribe for signing physician.
[2018-06-02] MEDS: POTASSIUM CHLORIDE ER 20 MEQ TAB.ER PO SCH ×2 (11:46→13:33)
--- NOTE | 2018-06-02 12:59 | P.PN ---
Subjective Progress Note Date: 06/02/18 This is a 38-year-old female patient of Dr. Fernández who presented to the emergency room with a chief complaint of abdominal pain and fever. Patient had gastric sleeve surgery on 05/09/2018 by a surgeon in [place]. Patient states that she had experienced some discomfort post surgery however she did notice her heart rate being elevated over 100 at rest and not feeling well. Patient denies any congestion, cough, or sinus pressure. Patient was experienced back pain that radiated to her chest causing some shortness of breath. Patient also complains of epigastric abdominal pain. Patient called her surgeon to advised her to go to the emergency department secondary to the abdominal pain and fever concern for possible leak post surgery. Patient denies any nausea, vomiting, dysuria or hematuria patient since has had a small amount of diarrhea since the procedure. She is currently on a pure food diet and has not experienced any difficulty eating. She denies any drainage from her incisions or redness to the site. 05/28: Patient is resting comfortably in bed. She did have a temperature of 100.4 last night and heart rate still has been tachycardic. Patient dates that she is feeling much better. She has been using the incentive spirometer and has increased her number. She has also been up ambulating denies any shortness of breath with ambulation. Patient still is complaining of some lower back discomfort. WBC 16.4, hemoglobin 10.1. Patient denies any nausea, vomiting, diarrhea. Spoke with her surgeon from [facility] regarding treatment plan. 05/29: Today, patient's discharge was held due to continued elevation in white count, discharge was held and a CAT scan of the abdomen and pelvis was ordered that showed phlegmonous changes in the left upper quadrant surrounding the [place] gastric fundus which is poorly defined given the surrounding inflammatory and phlegmonous changes. Fluid attenuation is seen centrally that could represent abscess or gastric secretions within the [place] gastric fundus and phlegmonous changes may be postsurgical or infectious. Those consults with ID and general surgery were added. Dr. Elizondo is following the patient and antibiotics are currently Zosyn and vancomycin. Dr. Conte is on consult. Blood culture showing no growth after 48 hours. Mycoplasma is negative and Legionella is pending. IV fluids will be increased 100 mL per hour. 05/30: Patient has been seen by Dr. Conte and he feels she most likely had a very small gastric sleeve leak and phlegmon associated with this. Her esophagram performed today shows no evidence of a leak. He has recommended continuing observation and IV antibiotics. Patient will be monitored closely and if any changes may need exploratory laparotomy. Patient is to be strict nothing by mouth and no medications orally. Temperature max yesterday at 7 AM was 102 and since she has been afebrile. Her blood sugars have been running low at 70s and sodium is 146. IV fluids will be changed to D5 and half-normal saline at 75 mL per hour. Creatinine jumped to 1.72 secondary to vancomycin which was 37.5 trough level. Vancomycin has been discontinued for now. States she is feeling much better today. She denies pain in the abdomen. Recommend heating pad for back discomfort. She states she is better after a hot shower.. 05/31: Patient denies any new complaints. She denies any abdominal pain. She is very anxious for a diet to be started. Noted her white count is 15.1, sodium 148, BUN 13 and creatinine 2.39. We will change dosing on Zosyn every 12 hours. IV fluids changed to D5W with a fluid bolus followed by 125 mL per hour. Recheck lab work in the morning. 06/01: Patient has been started on a bariatric clear diet with no plan to advance today. Dr. Elizondo changed antibiotics to Rocephin and Flagyl. White count is 15.1, sodium slightly improved at 146, chloride 114, creatinine 2.31. Hemoglobin is at 9.7. Dr Conte has ordered CT of the abdomen. Patient denies any abdominal pain. She does complain of flank pain. She is urinating sufficiently and IV fluids will be decreased to 75. 06/02: CAT scan of the [place] and revealed improvement in degree of phlegmonous changes surrounding the surgically excluded gastric fundus status post gastric sleeve. No pneumoperitoneum or extravasation of contrast. Patient is continued on Rocephin and Flagyl and Dr. lares is also added and Diflucan. Patient remains afebrile, vital signs are stable, pulse ox is 90-93% on room air. White count is improved to 13.7, potassium will be replaced, sodium remains at 146 and chloride 1:15. Creatinine 2.27 which is improved from yesterday. Patient states that she has had increased stools that are the consistency of gravy. Surgery is order C. diff toxin. Midline has been ordered. Review of systems Constitutional: Reports fatigue, denies fever, Denies chills, Denies malaise, Denies night sweats Eyes: denies blurred vision, denies pain Ears, nose, mouth and throat: Denies headache, Denies sinus pressure, Denies sore throat Cardiovascular: Denies chest pain, Denies dyspnea on exertion, Denies irregular heart beat, Denies leg edema, Denies palpitations, Denies shortness of breath Respiratory: Denies cough, denies sputum production Gastrointestinal: Denies abdominal pain, Denies constipation, complains of diarrhea, Denies loss of appetite, Denies nausea, Denies vomiting Genitourinary: Reports flank pain, Denies dysuria, Denies hematuria, Denies urgency. Complains of flank pain. Musculoskeletal: Denies myalgias, no weakness Integumentary: Denies pruritus, Denies rash Neurological: Denies numbness, Denies weakness, + back discomfort Psychiatric: Denies anxiety, Denies depression Endocrine: Denies fatigue, Denies weight change Objective - Vital Signs Vital signs: Vital Signs Temp 99.3 F 06/02/18 07:00 Pulse 81 06/02/18 07:00 Resp 16 06/01/18 23:05 BP 135/82 06/02/18 07:00 Pulse Ox 93 L 06/02/18 07:00 Intake & Output 06/01/18 06/02/18 06/02/18 18:59 06:59 18:59 Intake Total 1400 800 Balance 1400 800 Weight 87.543 kg Intake: Intake, IV Titration 900 800 Amount Dextrose 5% in Water 1, 900 600 000 ml @ 75 mls/hr IV . [id number] [facility] Rx#:[id number] Fluconazole in NaCl,Iso- 100 Osm 200 mg In Saline 1 100ml.bag @ 100 mls/hr IVPB DAILY@2100 [facility] Rx#: [id number] metroNIDAZOLE-NS PMX 500 100 mg In Saline 1 100ml.bag @ 100 mls/hr IVPB Q8HR [facility] Rx#:[id number] Oral 500 Other: Voiding Method Toilet - Exam General appearance: Present: average body habitus, cooperative. Patient appears to be in no distress. - EENT Eyes: Present: anicteric sclerae, EOMI, PERRLA ENT: Present: hearing grossly normal, NA/AT, normal oropharynx - Neck Neck: Present: normal ROM. Absent: lymphadenopathy - Respiratory Respiratory: bilateral: rhonchi, negative: diminished, dullness, rales, rhonchi , wheezing - Cardiovascular Rhythm: regular Heart sounds: normal: S1, S2 - Gastrointestinal General gastrointestinal: Present: normal bowel sounds, soft. Absent: tenderness, masses - Integumentary Integumentary: Present: normal turgor - Neurologic Neurologic: Present: CNII-XII intact - Musculoskeletal Musculoskeletal: Present: gait normal, generalized weakness, strength equal bilaterally - Psychiatric Psychiatric: Present: A&O x's 3, appropriate affect, intact judgment & insight - Labs CBC & Chem 7: 06/02/18 06:52 06/02/18 06:52 Labs: Abnormal Lab Results - Last 24 Hours (Table) 06/01/18 06/02/18 06/02/18 Range/Units 07:14 06:52 06:52 WBC 15.1 H 13.7 H (3.8-10.6) k/uL RBC 3.29 L 3.28 L (3.80-5.40) m/uL Hgb 9.7 L 9.7 L (11.4-16.0) gm/dL Hct 30.9 L 30.2 L (34.0-46.0) % Plt Count 488 H 505 H (150-450) k/uL Sodium 146 H (137-145) mmol/L Potassium 3.2 L (3.5-5.1) mmol/L Chloride 115 H (98-107) mmol/L Creatinine 2.27 H (0.52-1.04) mg/dL Calcium 7.8 L (8.4-10.2) mg/dL Microbiology - Last 24 Hours (Table) 05/26/18 19:38 Blood Culture - Final Blood No Growth after 144 hours 05/26/18 19:38 Blood Culture - Final Blood 05/29/18 08:38 Blood Culture - Preliminary Blood No Growth after 72 hours 05/29/18 08:46 Blood Culture - Preliminary Blood No Growth after 72 hours Assessment and Plan Plan: 1. Sepsis secondary to abdominal abscess/phlegmon and possibly related to strep agalactia urinary tract infection. Consult with Dr. Mikhail hunter. Dr. Conte is on consult. Antibiotics have been changed to ceftriaxone and Flagyl. IV Diflucan added. IV fluids decreased to 75 mL per hour. 2. Pneumonia less likely. Antibiotics changed to ceftriaxone and Flagyl, continue incentive spirometer, Mycoplasma IgM negative, Legionella urinary antigen pending 3. Acute kidney injury secondary to vancomycin. Continue IV fluids changed to D5W. Vancomycin has been discontinued. Continue to monitor kidney function daily. 4. Morbid obesity status post gastric sleeve procedure. 5. Anemia most likely secondary to acute kidney injury. 6. Diarrhea, rule out C. diff colitis. DVT prophylaxis ambulation GI prophylaxis. IV Protonix. Discharge plan: Home Impression and plan of care have been directed as dictated by the signing physician. Rhonda Rodriguez nurse practitioner acting as scribe for signing physician.
[2018-06-02] MEDS: FLUCONAZOLE IN NACL,ISO-OSM 200 MG in SALINE 1 100ML.BAG IVPB SCH (22:03)
[2018-06-02] MEDS: LORazepam 2 MG/ML INJ IV PRN (22:03)
--- NOTE | 2018-06-02 22:53 | PN ---
PROGRESS NOTE DATE OF SERVICE: 06/02/2018. REASON FOR FOLLOWUP: Abdominal abscess/infection after gastric sleeve surgery. INTERVAL HISTORY: The patient is afebrile. Has been tolerating a clear liquid diet. The patient complaining of multiple loose stools though. However she yesterday for CT. Denies having any chest pain. No shortness of breath or cough. PHYSICAL EXAMINATION: Blood pressure 139/83 with a pulse of 72, temperature 98.5. She is 92% on room air. General description is a middle-aged female lying in bed in no distress. Respiratory system: Unlabored breathing. Clear to auscultation anteriorly. Heart S1, S2, regular rate and rhythm. Abdomen soft, no tenderness. Extremities: No edema of the feet. LABS: White count slightly down to 13.7 today. Stool for C difficile has been negative. DIAGNOSTIC IMPRESSION AND PLAN: Patient with postop fevers in this patient who did have gastric sleeve surgery with evidence of changes around the gastric sleeve. Plan will be for to continue with the Rocephin and Flagyl and Diflucan to which her white count seems to have responded. Once oral intake is improved and cleared for discharge, will be advised to continue Rocephin. However, Flagyl and Dilfucan will be switched to p.o. The patient did have a component of oral thrush. Nystatin swish and swallow has been added and we will monitor clinical course closely. MMODL / IJN: [id number] /
[2018-06-03] MEDS: metroNIDAZOLE-NS PMX 500 MG in SALINE 1 100ML.BAG IVPB SCH ×4 (00:39→23:16)
--- NOTE | 2018-06-03 10:00 | P.PN ---
Subjective Progress Note Date: 06/03/18 This is a 38-year-old female patient of Dr. Fernández who presented to the emergency room with a chief complaint of abdominal pain and fever. Patient had gastric sleeve surgery on 05/09/2018 by a surgeon in [place]. Patient states that she had experienced some discomfort post surgery however she did notice her heart rate being elevated over 100 at rest and not feeling well. Patient denies any congestion, cough, or sinus pressure. Patient was experienced back pain that radiated to her chest causing some shortness of breath. Patient also complains of epigastric abdominal pain. Patient called her surgeon to advised her to go to the emergency department secondary to the abdominal pain and fever concern for possible leak post surgery. Patient denies any nausea, vomiting, dysuria or hematuria patient since has had a small amount of diarrhea since the procedure. She is currently on a pure food diet and has not experienced any difficulty eating. She denies any drainage from her incisions or redness to the site. 05/28: Patient is resting comfortably in bed. She did have a temperature of 100.4 last night and heart rate still has been tachycardic. Patient dates that she is feeling much better. She has been using the incentive spirometer and has increased her number. She has also been up ambulating denies any shortness of breath with ambulation. Patient still is complaining of some lower back discomfort. WBC 16.4, hemoglobin 10.1. Patient denies any nausea, vomiting, diarrhea. Spoke with her surgeon from [facility] regarding treatment plan. 05/29: Today, patient's discharge was held due to continued elevation in white count, discharge was held and a CAT scan of the abdomen and pelvis was ordered that showed phlegmonous changes in the left upper quadrant surrounding the [place] gastric fundus which is poorly defined given the surrounding inflammatory and phlegmonous changes. Fluid attenuation is seen centrally that could represent abscess or gastric secretions within the [place] gastric fundus and phlegmonous changes may be postsurgical or infectious. Those consults with ID and general surgery were added. Dr. Elizondo is following the patient and antibiotics are currently Zosyn and vancomycin. Dr. Conte is on consult. Blood culture showing no growth after 48 hours. Mycoplasma is negative and Legionella is pending. IV fluids will be increased 100 mL per hour. 05/30: Patient has been seen by Dr. Conte and he feels she most likely had a very small gastric sleeve leak and phlegmon associated with this. Her esophagram performed today shows no evidence of a leak. He has recommended continuing observation and IV antibiotics. Patient will be monitored closely and if any changes may need exploratory laparotomy. Patient is to be strict nothing by mouth and no medications orally. Temperature max yesterday at 7 AM was 102 and since she has been afebrile. Her blood sugars have been running low at 70s and sodium is 146. IV fluids will be changed to D5 and half-normal saline at 75 mL per hour. Creatinine jumped to 1.72 secondary to vancomycin which was 37.5 trough level. Vancomycin has been discontinued for now. States she is feeling much better today. She denies pain in the abdomen. Recommend heating pad for back discomfort. She states she is better after a hot shower.. 05/31: Patient denies any new complaints. She denies any abdominal pain. She is very anxious for a diet to be started. Noted her white count is 15.1, sodium 148, BUN 13 and creatinine 2.39. We will change dosing on Zosyn every 12 hours. IV fluids changed to D5W with a fluid bolus followed by 125 mL per hour. Recheck lab work in the morning. 06/01: Patient has been started on a bariatric clear diet with no plan to advance today. Dr. Elizondo changed antibiotics to Rocephin and Flagyl. White count is 15.1, sodium slightly improved at 146, chloride 114, creatinine 2.31. Hemoglobin is at 9.7. Dr Conte has ordered CT of the abdomen. Patient denies any abdominal pain. She does complain of flank pain. She is urinating sufficiently and IV fluids will be decreased to 75. 06/02: CAT scan of the [place] and revealed improvement in degree of phlegmonous changes surrounding the surgically excluded gastric fundus status post gastric sleeve. No pneumoperitoneum or extravasation of contrast. Patient is continued on Rocephin and Flagyl and Dr. lares is also added and Diflucan. Patient remains afebrile, vital signs are stable, pulse ox is 90-93% on room air. White count is improved to 13.7, potassium will be replaced, sodium remains at 146 and chloride 1:15. Creatinine 2.27 which is improved from yesterday. Patient states that she has had increased stools that are the consistency of gravy. Surgery is order C. diff toxin. Midline has been ordered. 06/03: Patient denies any new complaints. She is ambulating in her room without lightheadedness or dizziness. She denies having any nausea or vomiting. She denies any abdominal pain. She is on clear liquids and tolerating this. Repeat lab work is not available at the time of this dictation. Consult with nephrology will be added and ultrasound of the renals ordered. Temperature max 100.1. Pulse ox 92-99% on room air. Review of systems Constitutional: Reports fatigue, denies fever, Denies chills, Denies malaise, Denies night sweats Eyes: denies blurred vision, denies pain Ears, nose, mouth and throat: Denies headache, Denies sinus pressure, Denies sore throat Cardiovascular: Denies chest pain, Denies dyspnea on exertion, Denies irregular heart beat, Denies leg edema, Denies palpitations, Denies shortness of breath Respiratory: Denies cough, denies sputum production Gastrointestinal: Denies abdominal pain, Denies constipation, complains of diarrhea, Denies loss of appetite, Denies nausea, Denies vomiting Genitourinary: Reports flank pain, Denies dysuria, Denies hematuria, Denies urgency. Complains of flank pain. Musculoskeletal: Denies myalgias, no weakness Integumentary: Denies pruritus, Denies rash Neurological: Denies numbness, Denies weakness, + back discomfort Psychiatric: Denies anxiety, Denies depression Endocrine: Denies fatigue, Denies weight change Objective - Vital Signs Vital signs: Vital Signs Temp 98.5 F 06/03/18 01:40 Pulse 92 06/03/18 01:40 Resp 16 06/03/18 01:40 BP 155/83 06/03/18 01:40 Pulse Ox 92 L 06/02/18 19:43 Intake & Output 06/02/18 06/03/18 06/03/18 18:59 06:59 18:59 Intake Total 1545 Balance 1545 Weight 87.543 kg 87.543 kg Intake: Intake, IV Titration 725 Amount Dextrose 5% in Water 1, 525 000 ml @ 75 mls/hr IV . [id number] [facility] Rx#:[id number] cefTRIAXone 2,000 mg In 100 Sodium Chloride 0.9% 100 ml @ 100 mls/hr IVPB Q24HR [facility] Rx#:[id number] metroNIDAZOLE-NS PMX 500 100 mg In Saline 1 100ml.bag @ 100 mls/hr IVPB Q8HR [facility] Rx#:[id number] Oral 820 Other: Voiding Method Toilet # Voids 2 - Exam General appearance: Present: average body habitus, cooperative. Patient is resting in bed appears to be in no distress. - EENT Eyes: Present: anicteric sclerae, EOMI, PERRLA ENT: Present: hearing grossly normal, NA/AT, normal oropharynx - Neck Neck: Present: normal ROM. Absent: lymphadenopathy - Respiratory Respiratory: bilateral: rhonchi, negative: diminished, dullness, rales, rhonchi , wheezing - Cardiovascular Rhythm: regular Heart sounds: normal: S1, S2 - Gastrointestinal General gastrointestinal: Present: normal bowel sounds, soft. Absent: tenderness, masses - Integumentary Integumentary: Present: normal turgor - Neurologic Neurologic: Present: CNII-XII intact - Musculoskeletal Musculoskeletal: Present: gait normal, generalized weakness, strength equal bilaterally - Psychiatric Psychiatric: Present: A&O x's 3, appropriate affect, intact judgment & insight - Labs CBC & Chem 7: 06/02/18 06:52 06/02/18 06:52 Labs: Abnormal Lab Results - Last 24 Hours (Table) 06/02/18 06/02/18 Range/Units 06:52 06:52 WBC 13.7 H (3.8-10.6) k/uL RBC 3.28 L (3.80-5.40) m/uL Hgb 9.7 L (11.4-16.0) gm/dL Hct 30.2 L (34.0-46.0) % Plt Count 505 H (150-450) k/uL Sodium 146 H (137-145) mmol/L Potassium 3.2 L (3.5-5.1) mmol/L Chloride 115 H (98-107) mmol/L Creatinine 2.27 H (0.52-1.04) mg/dL Calcium 7.8 L (8.4-10.2) mg/dL Microbiology - Last 24 Hours (Table) 05/29/18 08:38 Blood Culture - Preliminary Blood No Growth after 96 hours 05/29/18 08:46 Blood Culture - Preliminary Blood No Growth after 96 hours Assessment and Plan Plan: 1. Sepsis secondary to abdominal abscess/phlegmon and possibly related to strep agalactia urinary tract infection. Consult with Dr. Elizondo appreciated. Dr. Conte is on consult. Antibiotics have been changed to ceftriaxone and Flagyl. IV Diflucan added. IV fluids decreased to 75 mL per hour. 2. Pneumonia less likely. Antibiotics changed to ceftriaxone and Flagyl, continue incentive spirometer, Mycoplasma IgM negative, Legionella urinary antigen pending 3. Acute kidney injury secondary to vancomycin. Continue IV fluids changed to D5W. Vancomycin has been discontinued. Continue to monitor kidney function daily. Renal ultrasound and nephrology consult added. 4. Morbid obesity status post gastric sleeve procedure. 5. Anemia most likely secondary to acute kidney injury. 6. Diarrhea, rule out C. diff colitis. DVT prophylaxis ambulation GI prophylaxis. IV Protonix. Discharge plan: Home Impression and plan of care have been directed as dictated by the signing physician. Rhonda Rodriguez nurse practitioner acting as scribe for signing physician.
--- NOTE | 2018-06-03 10:42 | P.PN ---
Subjective Progress Note Date: 06/03/18 Principal diagnosis: Abdominal pain Patient seems better today. She is tolerating water but has trouble with anything more than just water she states. Pain is controlled however. She is ambulating. Objective - Vital Signs Vital signs: Vital Signs Temp 98.5 F 06/03/18 01:40 Pulse 92 06/03/18 01:40 Resp 16 06/03/18 01:40 BP 155/83 06/03/18 01:40 Pulse Ox 92 L 06/02/18 19:43 Intake & Output 06/02/18 06/03/18 06/03/18 18:59 06:59 18:59 Intake Total 1545 2630 Balance 1545 2630 Weight 87.543 kg 87.543 kg Intake: Intake, IV Titration 725 1150 Amount Dextrose 5% in Water 1, 525 950 000 ml @ 75 mls/hr IV . [id number] [facility] Rx#:[id number] Fluconazole in NaCl,Iso- 100 Osm 200 mg In Saline 1 100ml.bag @ 100 mls/hr IVPB DAILY@2100 [facility] Rx#: [id number] cefTRIAXone 2,000 mg In 100 Sodium Chloride 0.9% 100 ml @ 100 mls/hr IVPB Q24HR [facility] Rx#:[id number] metroNIDAZOLE-NS PMX 500 100 100 mg In Saline 1 100ml.bag @ 100 mls/hr IVPB Q8HR [facility] Rx#:[id number] Oral 820 1480 Other: Voiding Method Toilet Toilet # Voids 2 2 - Exam Abdomen: Soft, nondistended, mild epigastric tenderness - Labs CBC & Chem 7: 06/02/18 06:52 06/02/18 06:52 Labs: Microbiology - Last 24 Hours (Table) 05/29/18 08:38 Blood Culture - Preliminary Blood No Growth after 96 hours 05/29/18 08:46 Blood Culture - Preliminary Blood No Growth after 96 hours Assessment and Plan (1) Abdominal pain Narrative/Plan: We'll order labs for tomorrow morning. Patient requires increase protein intake. Will start clear fast. If protein intake remains low may require TPN. Current Visit: Yes Status: Acute Code(s): R10.9 - UNSPECIFIED ABDOMINAL PAIN SNOMED Code(s): 44810331
[2018-06-03] MEDS: NYSTATIN 100,000 UNIT/ML SUSP 500,000 UNIT/5 ML CUP PO SCH ×4 (10:57→19:59)
[2018-06-03] MEDS: PANTOPRAZOLE 40 MG/10 ML VIAL IVP SCH (11:00)
[2018-06-03 11:17] LABS: Basophils % (A) 0 %; Eosinophils # (A) 0.2 k/uL (0-0.7); Eosinophils % (A) 2 %; HCT 32.3 % (34.0-46.0); HGB 9.8 gm/dL (11.4-16.0); Hypochromasia Marked; Lymphocytes % (A) 7 %; MCH 28.9 pg (25.0-35.0); MCHC 30.4 g/dL (31.0-37.0); MCV 95.1 fL (80.0-100.0); Mean Platelet Volume 6.7; Monocytes # (A) 0.6 k/uL (0-1.0); Monocytes % (A) 4 %; Neutrophils # (A) 11.8 k/uL (1.3-7.7); Neutrophils % (A) 85 %; Platelet Count 500 k/uL (150-450); RDW 13.6 % (11.5-15.5); WBC 13.9 k/uL (3.8-10.6)
--- NOTE | 2018-06-03 11:25 | P.NPCON ---
History of Present Illness - Reason for Consult Consult date: 06/03/18 acute renal failure - Chief Complaint Acute kidney injury - History of Present Illness This is a 38-year-old female seen in consultation because of acute kidney injury. This is likely from vancomycin and volume depletion from diarrhea. She has had about 18 stools yesterday and about 2 today. No blood. No nausea vomiting. She is currently on clear liquids. She had transient temperature but none now. No cough dizziness chest pain shortness of breath. No dysuria frequency. She has not been on any other nephrotoxic medication. History of present illness; She is otherwise healthy female without any previous medical history of any significance. She presented to the emergency room with a chief complaint of abdominal pain and fever. Patient had gastric sleeve surgery on 05/09/2018 by a surgeon in [place]. Patient states that she had experienced some discomfort post surgery however she did notice her heart rate being elevated over 100 at rest and not feeling well. Patient denies any congestion, cough, or sinus pressure. Patient was experienced back pain that radiated to her chest causing some shortness of breath. Patient also complains of epigastric abdominal pain. Patient called her surgeon to advised her to go to the emergency department secondary to the abdominal pain and fever concern for possible leak post surgery. Patient denies any nausea, vomiting, dysuria or hematuria patient since has had a small amount of diarrhea since the procedure. She is currently on a pure food diet and has not experienced any difficulty eating. She denies any drainage from her incisions or redness to the site. Past Medical History Past Medical History: No Reported History History of Any Multi-Drug Resistant Organisms: None Reported Additional Past Surgical History / Comment(s): Gastric sleeve 05/09/18 Past Anesthesia/Blood Transfusion Reactions: Postoperative Nausea & Vomiting ( PONV) Past Psychological History: No Psychological Hx Reported Smoking Status: Never smoker Past Alcohol Use History: None Reported Past Drug Use History: None Reported - Past Family History Mother Family Medical History: Diabetes Mellitus (Father), Hypertension (Father) Additional Family Medical History / Comment(s): Mother has no medical history. Patient has 2 children both are healthy ages 18 and 20 Father Family Medical History: Diabetes Mellitus, Hypertension Medications and Allergies Home Medications Medication Instructions Recorded Confirmed Type ALPRAZolam [Xanax] 1 mg PO TID PRN 05/26/18 05/26/18 History Acetaminophen [Tylenol Extra 500 mg PO Q6H PRN 05/26/18 05/26/18 History Strength] Ascorbic Acid [Vitamin C] 500 mg PO DAILY 05/26/18 05/26/18 History Calcium Carbonate [Calcium] 600 mg PO DAILY 05/26/18 05/26/18 History Multivitamin,Therapeutic [Thera] 1 tab PO DAILY 05/26/18 05/26/18 History Acetaminophen Tab [Tylenol] 650 mg PO Q6HR PRN tab 05/28/18 Rx cefTRIAXone [Rocephin] 2,000 mg IVP Q24HR #10 vial 06/02/18 Rx Allergies Allergy/AdvReac Type Severity Reaction Status Date / Time No Known Allergies Allergy Verified 05/26/18 18:48 Physical Exam Vitals: Vital Signs Temp Pulse Pulse Resp BP Pulse Ox 06/03/18 10:30 98.7 F 74 16 148/81 95 06/03/18 01:40 98.5 F 66 92 16 155/83 06/03/18 00:20 16 06/02/18 21:12 16 06/02/18 19:55 72 06/02/18 19:43 98.5 F 72 16 92 L 06/02/18 18:43 100.1 F H 139/83 99 06/02/18 16:23 16 06/02/18 14:40 97.7 F 78 153/90 99 Intake and Output 06/02/18 06/03/18 06/03/18 22:59 06:59 14:59 Intake Total 1240 1390 Balance 1240 1390 Intake: Intake, IV Titration 300 850 Amount Dextrose 5% in Water 1, 300 650 000 ml @ 75 mls/hr IV . [id number] [facility] Rx#:[id number] Fluconazole in NaCl,Iso- 100 Osm 200 mg In Saline 1 100ml.bag @ 100 mls/hr IVPB DAILY@2100 [facility] Rx#: [id number] metroNIDAZOLE-NS PMX 500 100 mg In Saline 1 100ml.bag @ 100 mls/hr IVPB Q8HR [facility] Rx#:[id number] Oral 940 540 Other: Voiding Method Toilet # Voids 2 2 Weight 87.543 kg She is comfortable awake alert HEENT exam no JVP neck is supple no facial asymmetry. Lungs are clear to auscultation good air entry bilaterally Heart sounds are unremarkable for any murmur rub gallop Abdomen soft nontender. No masses felt Extremity exam was no edema Neurologically awake alert oriented Results - Lab Results Most recent lab results Calcium 7.8 mg/dL (8.4-10.2) L 06/02/18 06:52 06/02/18 06:52 06/02/18 06:52 Assessment and Plan Assessment: Impression 1. Acute kidney injury likely from antibiotics and vancomycin as well as an element of volume depletion with excessive diarrhea. Creatinine went up from 0.5-2.3 as of 2 days ago 05/31/2018 and is down a bit to 2.27 yesterday dated Vancomycin level was 37.5 trough dated 05/30/2018. 2. No previous kidney disease creatinine was 0.5 on admission. 3. Hypernatremia secondary to free water loss and in adequate intake in the face of acute kidney injury and consequent osmolar regulatory failure by the kidney 4. Hypokalemia, potassium is 3.2 secondary to diarrhea. 5. Rule out magnesium deficiency because of the diarrhea. 6. Mild hypocalcemia possibly corrected calcium is normal currently 7.8 albumin is not available Recommendation. 1. Change IV fluids to lactated Ringer's at 125 mL an hour. 2. Check serum magnesium. 3. Replenish potassium she will require approximately 60 mEq can be given orally 20 mEq every 2 hours. 4. Check albumin and ionized calcium 5. Avoid any nephrotoxic's and agree with holding vancomycin 6 Follow-up labs tomorrow thank you for this consultation we'll continue to follow closely
[2018-06-03 11:39] LABS: Albumin 2.4 g/dL (3.5-5.0); Calcium 7.8 mg/dL (8.4-10.2); Potassium 3.6 mmol/L (3.5-5.1); Total Bilirubin 0.4 mg/dL (0.2-1.3); Total Protein 5.6 g/dL (6.3-8.2)
[2018-06-03] MEDS ORDERED: POTASSIUM CHLORIDE ER 20 MEQ TAB.ER PO SCH (12:00)
[2018-06-03] MEDS: cefTRIAXone 2,000 MG in SODIUM CHLORIDE 0.9% 100 ML IVPB SCH (13:26)
[2018-06-03] MEDS: POTASSIUM BICARBONATE/CIT AC 20 MEQ TABLET.EFF PO SCH ×3 (13:29→19:59)
--- NOTE | 2018-06-03 13:29 | US ---
EXAMINATION TYPE: US renals and bladder DATE OF EXAM: 06/03/2018 COMPARISON: NONE CLINICAL HISTORY: TERELL. EXAM MEASUREMENTS: Right Kidney: 13.7 x 4.9 x 5.8 cm Left Kidney: 12.7 x 5.7 x 5.9 cm Limited due to bowel gas. Right Kidney: wnl Left Kidney: wnl Bladder: wnl Bilateral Jets seen: Yes There is no evidence for hydronephrosis at this point in time. No nephrolithiasis is seen. No omaira s are identified. The urinary bladder is anechoic. Bilateral ureteral jets are seen. IMPRESSION: No hydronephrosis or nephrolithiasis is seen. Urinary bladder is unremarkable.
[2018-06-03] MEDS: HEPARIN SODIUM,PORCINE 5,000 UNIT/ML 1 ML VIAL SQ SCH ×2 (19:15→23:17)
[2018-06-03] MEDS: FLUCONAZOLE IN NACL,ISO-OSM 200 MG in SALINE 1 100ML.BAG IVPB SCH (19:59)
[2018-06-03] MEDS: LACTATED RINGERS 1,000 ML IV SCH ×2 (20:04→20:05)
[2018-06-03] MEDS: ONDANSETRON 4 MG/2 ML VIAL IVP PRN (21:23)
[2018-06-03] MEDS: DEXTROSE 5% IN WATER 1,000 ML IV SCH (21:36)
[2018-06-03] MEDS: LORazepam 2 MG/ML INJ IV PRN (23:22)
[2018-06-04] MEDS: HEPARIN SODIUM,PORCINE 5,000 UNIT/ML 1 ML VIAL SQ SCH ×5 (01:40→23:20)
[2018-06-04] MEDS: LACTATED RINGERS 1,000 ML IV SCH ×3 (06:12→21:10)
[2018-06-04 07:44] LABS: Basophils % (A) 0 %; Eosinophils # (A) 0.2 k/uL (0-0.7); Eosinophils % (A) 2 %; HCT 31.4 % (34.0-46.0); HGB 9.8 gm/dL (11.4-16.0); Hypochromasia Slight; Lymphocytes # (A) 1.1 k/uL (1.0-4.8); Lymphocytes % (A) 10 %; MCHC 31.2 g/dL (31.0-37.0); MCV 92.8 fL (80.0-100.0); Mean Platelet Volume 7.1; Monocytes # (A) 0.6 k/uL (0-1.0); Monocytes % (A) 5 %; Neutrophils # (A) 9.5 k/uL (1.3-7.7); Neutrophils % (A) 82 %; Platelet Count 510 k/uL (150-450); RBC 3.38 m/uL (3.80-5.40); RDW 13.7 % (11.5-15.5); WBC 11.5 k/uL (3.8-10.6)
[2018-06-04 07:59] LABS: Albumin 2.4 g/dL (3.5-5.0); Calcium 7.9 mg/dL (8.4-10.2); Potassium 3.6 mmol/L (3.5-5.1); Total Bilirubin 0.4 mg/dL (0.2-1.3); Total Protein 5.5 g/dL (6.3-8.2)
[2018-06-04] MEDS: PANTOPRAZOLE 40 MG/10 ML VIAL IVP SCH (08:17)
[2018-06-04] MEDS: NYSTATIN 100,000 UNIT/ML SUSP 500,000 UNIT/5 ML CUP PO SCH ×4 (08:17→21:07)
[2018-06-04] MEDS: metroNIDAZOLE-NS PMX 500 MG in SALINE 1 100ML.BAG IVPB SCH ×3 (08:18→23:17)
--- NOTE | 2018-06-04 10:24 | P.PN ---
Subjective Progress Note Date: 06/04/18 This is a 38-year-old female patient of Dr. Fernández who presented to the emergency room with a chief complaint of abdominal pain and fever. Patient had gastric sleeve surgery on 05/09/2018 by a surgeon in [place]. Patient states that she had experienced some discomfort post surgery however she did notice her heart rate being elevated over 100 at rest and not feeling well. Patient denies any congestion, cough, or sinus pressure. Patient was experienced back pain that radiated to her chest causing some shortness of breath. Patient also complains of epigastric abdominal pain. Patient called her surgeon to advised her to go to the emergency department secondary to the abdominal pain and fever concern for possible leak post surgery. Patient denies any nausea, vomiting, dysuria or hematuria patient since has had a small amount of diarrhea since the procedure. She is currently on a pure food diet and has not experienced any difficulty eating. She denies any drainage from her incisions or redness to the site. 05/28: Patient is resting comfortably in bed. She did have a temperature of 100.4 last night and heart rate still has been tachycardic. Patient dates that she is feeling much better. She has been using the incentive spirometer and has increased her number. She has also been up ambulating denies any shortness of breath with ambulation. Patient still is complaining of some lower back discomfort. WBC 16.4, hemoglobin 10.1. Patient denies any nausea, vomiting, diarrhea. Spoke with her surgeon from [facility] regarding treatment plan. 05/29: Today, patient's discharge was held due to continued elevation in white count, discharge was held and a CAT scan of the abdomen and pelvis was ordered that showed phlegmonous changes in the left upper quadrant surrounding the [place] gastric fundus which is poorly defined given the surrounding inflammatory and phlegmonous changes. Fluid attenuation is seen centrally that could represent abscess or gastric secretions within the [place] gastric fundus and phlegmonous changes may be postsurgical or infectious. Those consults with ID and general surgery were added. Dr. Elizondo is following the patient and antibiotics are currently Zosyn and vancomycin. Dr. Conte is on consult. Blood culture showing no growth after 48 hours. Mycoplasma is negative and Legionella is pending. IV fluids will be increased 100 mL per hour. 05/30: Patient has been seen by Dr. Conte and he feels she most likely had a very small gastric sleeve leak and phlegmon associated with this. Her esophagram performed today shows no evidence of a leak. He has recommended continuing observation and IV antibiotics. Patient will be monitored closely and if any changes may need exploratory laparotomy. Patient is to be strict nothing by mouth and no medications orally. Temperature max yesterday at 7 AM was 102 and since she has been afebrile. Her blood sugars have been running low at 70s and sodium is 146. IV fluids will be changed to D5 and half-normal saline at 75 mL per hour. Creatinine jumped to 1.72 secondary to vancomycin which was 37.5 trough level. Vancomycin has been discontinued for now. States she is feeling much better today. She denies pain in the abdomen. Recommend heating pad for back discomfort. She states she is better after a hot shower.. 05/31: Patient denies any new complaints. She denies any abdominal pain. She is very anxious for a diet to be started. Noted her white count is 15.1, sodium 148, BUN 13 and creatinine 2.39. We will change dosing on Zosyn every 12 hours. IV fluids changed to D5W with a fluid bolus followed by 125 mL per hour. Recheck lab work in the morning. 06/01: Patient has been started on a bariatric clear diet with no plan to advance today. Dr. Elizondo changed antibiotics to Rocephin and Flagyl. White count is 15.1, sodium slightly improved at 146, chloride 114, creatinine 2.31. Hemoglobin is at 9.7. Dr Conte has ordered CT of the abdomen. Patient denies any abdominal pain. She does complain of flank pain. She is urinating sufficiently and IV fluids will be decreased to 75. 06/02: CAT scan of the [place] and revealed improvement in degree of phlegmonous changes surrounding the surgically excluded gastric fundus status post gastric sleeve. No pneumoperitoneum or extravasation of contrast. Patient is continued on Rocephin and Flagyl and Dr. lares is also added and Diflucan. Patient remains afebrile, vital signs are stable, pulse ox is 90-93% on room air. White count is improved to 13.7, potassium will be replaced, sodium remains at 146 and chloride 1:15. Creatinine 2.27 which is improved from yesterday. Patient states that she has had increased stools that are the consistency of gravy. Surgery is order C. diff toxin. Midline has been ordered. 06/03: Patient denies any new complaints. She is ambulating in her room without lightheadedness or dizziness. She denies having any nausea or vomiting. She denies any abdominal pain. She is on clear liquids and tolerating this. Repeat lab work is not available at the time of this dictation. Consult with nephrology will be added and ultrasound of the renals ordered. Temperature max 100.1. Pulse ox 92-99% on room air. 06/04: Pain is controlled. Patient is tolerating clear liquid diet which is not to be advanced. Patient may need to start TPN as she was made nothing by mouth on May 29 and then on May 31 started a clear liquid diet. She states she is not eating much as she does not have much appetite. She is taking the Premier protein shake only. Diarrhea has started again. Creatinine yesterday was 2.27 was unchanged from the day before but today is down to 2.08. Patient has been seen by nephrology and IV fluids changed to lactated Ringer's at 125 mL /h, magnesium 1.9 be checked and replaced potassium, albumin 2.4. Renal ultrasound showed no hydronephrosis or nephrolithiasis. Urinary bladder is unremarkable. White count is improving to 11.5, hemoglobin 9.8. Review of systems Constitutional: Reports fatigue, denies fever, Denies chills, Denies malaise, Denies night sweats Eyes: denies blurred vision, denies pain Ears, nose, mouth and throat: Denies headache, Denies sinus pressure, Denies sore throat Cardiovascular: Denies chest pain, Denies dyspnea on exertion, Denies irregular heart beat, Denies leg edema, Denies palpitations, Denies shortness of breath Respiratory: Denies cough, denies sputum production Gastrointestinal: Denies abdominal pain, Denies constipation, complains of diarrhea, complains of loss of appetite, Denies nausea, Denies vomiting Genitourinary: Reports flank pain, Denies dysuria, Denies hematuria, Denies urgency. Complains of flank pain. Musculoskeletal: Denies myalgias, no weakness Integumentary: Denies pruritus, Denies rash Neurological: Denies numbness, Denies weakness, + back discomfort Psychiatric: Denies anxiety, Denies depression Endocrine: Denies fatigue, Denies weight change Objective - Vital Signs Vital signs: Vital Signs Temp 99.5 F 06/04/18 00:14 Pulse 57 L 06/04/18 00:14 Resp 16 06/04/18 00:14 BP 160/91 06/04/18 00:14 Pulse Ox 97 06/03/18 19:25 Intake & Output 06/03/18 06/04/18 06/04/18 18:59 06:59 18:59 Other: Voiding Method Toilet - Exam General appearance: Present: average body habitus, cooperative. Patient is resting in bed appears to be in no distress. - EENT Eyes: Present: anicteric sclerae, EOMI, PERRLA ENT: Present: hearing grossly normal, NA/AT, normal oropharynx - Neck Neck: Present: normal ROM. Absent: lymphadenopathy - Respiratory Respiratory: bilateral: rhonchi, negative: diminished, dullness, rales, rhonchi , wheezing - Cardiovascular Rhythm: regular Heart sounds: normal: S1, S2 - Gastrointestinal General gastrointestinal: Present: normal bowel sounds, soft. Absent: tenderness, masses - Integumentary Integumentary: Present: normal turgor - Neurologic Neurologic: Present: CNII-XII intact - Musculoskeletal Musculoskeletal: Present: gait normal, generalized weakness, strength equal bilaterally, midline to right arm - Psychiatric Psychiatric: Present: A&O x's 3, appropriate affect, intact judgment & insight - Labs CBC & Chem 7: 06/04/18 06:27 06/04/18 06:27 Labs: Abnormal Lab Results - Last 24 Hours (Table) 06/03/18 06/03/18 06/04/18 Range/Units 09:16 09:16 06:27 WBC 13.9 H 11.5 H (3.8-10.6) k/uL RBC 3.40 L 3.38 L (3.80-5.40) m/uL Hgb 9.8 L 9.8 L (11.4-16.0) gm/dL Hct 32.3 L 31.4 L (34.0-46.0) % MCHC 30.4 L (31.0-37.0) g/dL Plt Count 500 H 510 H (150-450) k/uL Neutrophils # 11.8 H 9.5 H (1.3-7.7) k/uL Sodium 147 H (137-145) mmol/L Chloride 115 H (98-107) mmol/L Creatinine 2.27 H (0.52-1.04) mg/dL Calcium 7.8 L (8.4-10.2) mg/dL Total Protein 5.6 L (6.3-8.2) g/dL Albumin 2.4 L (3.5-5.0) g/dL Microbiology - Last 24 Hours (Table) 05/29/18 08:38 Blood Culture - Preliminary Blood No Growth after 120 hours 05/29/18 08:46 Blood Culture - Preliminary Blood No Growth after 120 hours Assessment and Plan Plan: 1. Sepsis secondary to abdominal abscess/phlegmon and possibly related to strep agalactia urinary tract infection. Consult with Dr. Elizondo appreciated. Dr. Conte is on consult. Antibiotics have been changed to ceftriaxone and Flagyl. IV Diflucan added. IV fluids changed to LR at 125 mL per hour. 2. Pneumonia less likely. Antibiotics changed to ceftriaxone and Flagyl, continue incentive spirometer. 3. Acute kidney injury secondary to vancomycin. Continue IV fluids changed to D5W. Vancomycin has been discontinued. Continue to monitor kidney function daily. Nephrology consult appreciated. IV fluids changed to LR 125 mL per hour. 4. Morbid obesity status post gastric sleeve procedure. 5. Anemia most likely secondary to acute kidney injury. 6. Diarrhea, rule out C. diff colitis. 7. Hypernatremia secondary to free water loss and in adequate intake. DVT prophylaxis ambulation GI prophylaxis. IV Protonix. Discharge plan: Home Impression and plan of care have been directed as dictated by the signing physician. Rhonda Rodriguez nurse practitioner acting as scribe for signing physician.
[2018-06-04] MEDS: cefTRIAXone 2,000 MG in SODIUM CHLORIDE 0.9% 100 ML IVPB SCH (10:45)
--- NOTE | 2018-06-04 11:25 | P.PN ---
Subjective Progress Note Date: 06/04/18 Principal diagnosis: This is a 38-year-old female seen in consultation because of acute kidney injury. She had gastric sleeve Sx on 05/09/18. Cr down TERELL likely from vancomycin and volume depletion from diarrhea. She has had about freq stools, on and off. Btter this am. Min Nausea no vomitting. On Clear Liiquids. No blood in stools. She had transient temperature but none now. No cough dizziness chest pain shortness of breath. No dysuria frequency. She has not been on any other nephrotoxic medication. History of present illness; She is otherwise healthy female without any previous medical history of any significance. She presented to the emergency room with a chief complaint of abdominal pain and fever. Patient had gastric sleeve surgery on 05/09/2018 by a surgeon in [place]. Patient states that she had experienced some discomfort post surgery however she did notice her heart rate being elevated over 100 at rest and not feeling well. Patient denies any congestion, cough, or sinus pressure. Patient was experienced back pain that radiated to her chest causing some shortness of breath. Patient also complains of epigastric abdominal pain. Patient called her surgeon to advised her to go to the emergency department secondary to the abdominal pain and fever concern for possible leak post surgery. Patient denies any nausea, vomiting, dysuria or hematuria patient since has had a small amount of diarrhea since the procedure. She is currently on a pure food diet and has not experienced any difficulty eating. She denies any drainage from her incisions or redness to the site. Objective - Vital Signs Vital signs: Vital Signs Temp 98.6 F 06/04/18 07:11 Pulse 58 L 06/04/18 07:11 Resp 16 06/04/18 07:11 BP 178/91 06/04/18 07:11 Pulse Ox 94 L 06/04/18 07:11 Intake & Output 06/03/18 06/04/18 06/04/18 18:59 06:59 18:59 Other: Voiding Method Toilet On examination she is awake alert oriented comfortable HEENT exam no JVP neck is supple no facial asymmetry Lungs are to 2 Auscultation good air entry bilaterally Heart sounds unremarkable for any murmur rub gallop Abdomen soft nontender nondistended Extremity examination reveals no edema Neurologically awake alert oriented. - Labs CBC & Chem 7: 06/04/18 06:27 06/04/18 06:27 Labs: Abnormal Lab Results - Last 24 Hours (Table) 06/03/18 06/03/18 06/04/18 Range/Units 09:16 09:16 06:27 WBC 13.9 H 11.5 H (3.8-10.6) k/uL RBC 3.40 L 3.38 L (3.80-5.40) m/uL Hgb 9.8 L 9.8 L (11.4-16.0) gm/dL Hct 32.3 L 31.4 L (34.0-46.0) % MCHC 30.4 L (31.0-37.0) g/dL Plt Count 500 H 510 H (150-450) k/uL Neutrophils # 11.8 H 9.5 H (1.3-7.7) k/uL Sodium 147 H (137-145) mmol/L Chloride 115 H (98-107) mmol/L Creatinine 2.27 H (0.52-1.04) mg/dL Calcium 7.8 L (8.4-10.2) mg/dL Total Protein 5.6 L (6.3-8.2) g/dL Albumin 2.4 L (3.5-5.0) g/dL 06/04/18 Range/Units 06:27 WBC (3.8-10.6) k/uL RBC (3.80-5.40) m/uL Hgb (11.4-16.0) gm/dL Hct (34.0-46.0) % MCHC (31.0-37.0) g/dL Plt Count (150-450) k/uL Neutrophils # (1.3-7.7) k/uL Sodium (137-145) mmol/L Chloride 113 H (98-107) mmol/L Creatinine 2.08 H (0.52-1.04) mg/dL Calcium 7.9 L (8.4-10.2) mg/dL Total Protein 5.5 L (6.3-8.2) g/dL Albumin 2.4 L (3.5-5.0) g/dL Microbiology - Last 24 Hours (Table) 05/29/18 08:38 Blood Culture - Preliminary Blood No Growth after 120 hours 05/29/18 08:46 Blood Culture - Preliminary Blood No Growth after 120 hours Assessment and Plan Assessment: Impression 1. Acute kidney injury likely from vancomycin as well as an element of volume depletion with excessive diarrhea. Creatinine went up from 0.5-2.3 as of 2017 and is down a bit to 2.27 dated 06/02/2018 Vancomycin level was 37.5 trough dated 05/30/2018. Creatinine down to 2.08, with urine output 2. No previous kidney disease creatinine was 0.5 on admission. 3. Hypernatremia secondary to free water loss and in adequate intake in the face of acute kidney injury and consequent osmolar regulatory failure by the kidney, sodium improved from 147-145 4. Hypokalemia, potassium is 3.2 secondary to diarrhea. Improved to 3.6 6. Mild hypocalcemia possibly corrected calcium is normal currently 7.8 albumin is 2.4 therefore corrected calcium is normal Recommendation. 1. Continue lactated Ringer's at 125 mL an hour. 2. Check labs including potassium 3. Avoid any nephrotoxic's and agree with holding vancomycin 4 Follow-up labs tomorrow
--- NOTE | 2018-06-04 11:28 | P.PN ---
Subjective Progress Note Date: 06/04/18 Principal diagnosis: Abdominal pain Patient has no new complaints. She seems to be tolerating her liquids better today. Low-grade fever of 99.5. White blood cell count 11.5. Objective - Vital Signs Vital signs: Vital Signs Temp 98.6 F 06/04/18 07:11 Pulse 58 L 06/04/18 07:11 Resp 16 06/04/18 07:11 BP 178/91 06/04/18 07:11 Pulse Ox 94 L 06/04/18 07:11 Intake & Output 06/03/18 06/04/18 06/04/18 18:59 06:59 18:59 Other: Voiding Method Toilet - Exam Abdomen: Soft, nontender, nondistended - Labs CBC & Chem 7: 06/04/18 06:27 06/04/18 06:27 Labs: Abnormal Lab Results - Last 24 Hours (Table) 06/03/18 06/04/18 06/04/18 Range/Units 09:16 06:27 06:27 WBC 11.5 H (3.8-10.6) k/uL RBC 3.38 L (3.80-5.40) m/uL Hgb 9.8 L (11.4-16.0) gm/dL Hct 31.4 L (34.0-46.0) % Plt Count 510 H (150-450) k/uL Neutrophils # 9.5 H (1.3-7.7) k/uL Sodium 147 H (137-145) mmol/L Chloride 115 H 113 H (98-107) mmol/L Creatinine 2.27 H 2.08 H (0.52-1.04) mg/dL Calcium 7.8 L 7.9 L (8.4-10.2) mg/dL Total Protein 5.6 L 5.5 L (6.3-8.2) g/dL Albumin 2.4 L 2.4 L (3.5-5.0) g/dL Microbiology - Last 24 Hours (Table) 05/29/18 08:38 Blood Culture - Final Blood No Growth after 144 hours 05/29/18 08:46 Blood Culture - Final Blood No Growth after 144 hours Assessment and Plan (1) Abdominal pain Narrative/Plan: Continue liquid diet. Ambulate. Continue antibiotics. Current Visit: Yes Status: Acute Code(s): R10.9 - UNSPECIFIED ABDOMINAL PAIN SNOMED Code(s): 21972890
[2018-06-04] MEDS: FLUCONAZOLE IN NACL,ISO-OSM 200 MG in SALINE 1 100ML.BAG IVPB SCH (21:07)
[2018-06-05] MEDS: LACTATED RINGERS 1,000 ML IV SCH ×2 (05:43→09:24)
[2018-06-05] MEDS: ONDANSETRON 4 MG/2 ML VIAL IVP PRN (07:40)
[2018-06-05] MEDS: HEPARIN SODIUM,PORCINE 5,000 UNIT/ML 1 ML VIAL SQ SCH ×2 (07:40→15:45)
[2018-06-05] MEDS: metroNIDAZOLE-NS PMX 500 MG in SALINE 1 100ML.BAG IVPB SCH (07:41)
[2018-06-05 08:01] LABS: HCT 33.7 % (34.0-46.0); HGB 10.7 gm/dL (11.4-16.0); Hypochromasia Slight; MCH 29.2 pg (25.0-35.0); MCHC 31.8 g/dL (31.0-37.0); MCV 91.7 fL (80.0-100.0); Mean Platelet Volume 6.8; Platelet Count 492 k/uL (150-450); RBC 3.67 m/uL (3.80-5.40); WBC 12.6 k/uL (3.8-10.6)
[2018-06-05 08:29] LABS: Albumin 2.7 g/dL (3.5-5.0); Calcium 8.6 mg/dL (8.4-10.2); Potassium 3.5 mmol/L (3.5-5.1); Total Bilirubin 0.4 mg/dL (0.2-1.3)
[2018-06-05] MEDS ORDERED: cloNIDine HCL 0.1 MG TAB PO PRN (09:24)
[2018-06-05] MEDS: cefTRIAXone 2,000 MG in SODIUM CHLORIDE 0.9% 100 ML IVPB SCH (09:24)
[2018-06-05] MEDS: NYSTATIN 100,000 UNIT/ML SUSP 500,000 UNIT/5 ML CUP PO SCH ×4 (09:24→21:32)
[2018-06-05] MEDS: PANTOPRAZOLE 40 MG/10 ML VIAL IVP SCH (09:24)
[2018-06-05] MEDS: amLODIPine 5 MG TAB PO SCH (09:32)
[2018-06-05] MEDS ORDERED: ACETAMINOPHEN IV (For NPO) 1,000 MG in EMPTY BAG 1 BAG IVPB ONE (11:21)
--- NOTE | 2018-06-05 11:48 | P.PN ---
Subjective Progress Note Date: 06/05/18 48-year-old female sitting up in bed. Patient reports over the last several days she has been experiencing persistent nausea vomiting no frequent stooling. Stools obtained June 02 was negative for C. diff patient reports today a sensation of nausea when trying to take clear liquids does not actually vomit with each episode patients being followed by the attending for episodes of elevated blood pressure antihypertensive meds being adjusted per medicine White count 12.6 this morning creatinine 1.96 Recent done at another facility laparoscopic post sleeve gastrectomy for morbid obesity greater than 20 days out Objective - Vital Signs Vital signs: Vital Signs Temp 98.4 F 06/05/18 07:49 Pulse 60 06/05/18 07:49 Resp 14 06/05/18 07:49 BP 179/83 06/05/18 07:49 Pulse Ox 96 06/05/18 07:49 Intake & Output 06/04/18 06/05/18 06/05/18 18:59 06:59 18:59 Weight 87.543 kg Other: Voiding Method Toilet Toilet - Exam Physical exam 38-year-old female resting in bed sitting up in bed denying dizziness lightheadedness shortness of breath or chest pain appearing in no acute distress Lungs adequate air movement bilaterally on room air Heart S1-S2 audible Abdomen soft reports when attempting to drink clear liquids has a nausea sensation does not actually vomit. Continues to have frequent watery stools. Extremities no edema - Labs CBC & Chem 7: 06/05/18 07:22 06/05/18 07:22 Labs: Abnormal Lab Results - Last 24 Hours (Table) 06/05/18 06/05/18 Range/Units 07:22 07:22 WBC 12.6 H (3.8-10.6) k/uL RBC 3.67 L (3.80-5.40) m/uL Hgb 10.7 L (11.4-16.0) gm/dL Hct 33.7 L (34.0-46.0) % Plt Count 492 H (150-450) k/uL Sodium 149 H (137-145) mmol/L Chloride 114 H (98-107) mmol/L Creatinine 1.96 H (0.52-1.04) mg/dL Total Protein 6.0 L (6.3-8.2) g/dL Albumin 2.7 L (3.5-5.0) g/dL Microbiology - Last 24 Hours (Table) 05/29/18 08:38 Blood Culture - Final Blood No Growth after 144 hours 05/29/18 08:46 Blood Culture - Final Blood No Growth after 144 hours Assessment and Plan Assessment: Impression Present on admission febrile tachycardic leukocytosis sepsis secondary to abdominal abscess/phlegmon related to strep agalactic urinary tract infection Morbid obesity due to excess calories status post laparoscopic post sleeve gastrectomy done at another facility 20 days prior Present on admission intractable nausea vomiting epigastric pain with a CAT scan showing evidence of perigastric inflammation and phlegmon Computed tomography scan of the abdomen pelvis report indicate evidence of a very small gastric sleeve leak with evidence of phlegmon near the gastric staple line no obvious abscess at this point Present on admission UTI with positive urine culture Acute kidney injury suspect due to vancomycin improving vancomycin was Stopped with Zosyn added Frequent loose stools with stool negative for C. diff Hypertension with episodes of Plan Continue recommendations per infectious disease Continue observation Continue IV antibiotics as ordered Pain control full liquid bariatric diet The above impression and plan of care have been discussed and directed by signing physician. Iman Pollack nurse practitioner acting as scribe for signing physician.
--- NOTE | 2018-06-05 12:17 | P.PN ---
Subjective Progress Note Date: 06/05/18 This is a 38-year-old female patient of Dr. Fernández who presented to the emergency room with a chief complaint of abdominal pain and fever. Patient had gastric sleeve surgery on 05/09/2018 by a surgeon in [place]. Patient states that she had experienced some discomfort post surgery however she did notice her heart rate being elevated over 100 at rest and not feeling well. Patient denies any congestion, cough, or sinus pressure. Patient was experienced back pain that radiated to her chest causing some shortness of breath. Patient also complains of epigastric abdominal pain. Patient called her surgeon to advised her to go to the emergency department secondary to the abdominal pain and fever concern for possible leak post surgery. Patient denies any nausea, vomiting, dysuria or hematuria patient since has had a small amount of diarrhea since the procedure. She is currently on a pure food diet and has not experienced any difficulty eating. She denies any drainage from her incisions or redness to the site. 05/28: Patient is resting comfortably in bed. She did have a temperature of 100.4 last night and heart rate still has been tachycardic. Patient dates that she is feeling much better. She has been using the incentive spirometer and has increased her number. She has also been up ambulating denies any shortness of breath with ambulation. Patient still is complaining of some lower back discomfort. WBC 16.4, hemoglobin 10.1. Patient denies any nausea, vomiting, diarrhea. Spoke with her surgeon from [facility] regarding treatment plan. 05/29: Today, patient's discharge was held due to continued elevation in white count, discharge was held and a CAT scan of the abdomen and pelvis was ordered that showed phlegmonous changes in the left upper quadrant surrounding the [place] gastric fundus which is poorly defined given the surrounding inflammatory and phlegmonous changes. Fluid attenuation is seen centrally that could represent abscess or gastric secretions within the [place] gastric fundus and phlegmonous changes may be postsurgical or infectious. Those consults with ID and general surgery were added. Dr. Elizondo is following the patient and antibiotics are currently Zosyn and vancomycin. Dr. Conte is on consult. Blood culture showing no growth after 48 hours. Mycoplasma is negative and Legionella is pending. IV fluids will be increased 100 mL per hour. 05/30: Patient has been seen by Dr. Conte and he feels she most likely had a very small gastric sleeve leak and phlegmon associated with this. Her esophagram performed today shows no evidence of a leak. He has recommended continuing observation and IV antibiotics. Patient will be monitored closely and if any changes may need exploratory laparotomy. Patient is to be strict nothing by mouth and no medications orally. Temperature max yesterday at 7 AM was 102 and since she has been afebrile. Her blood sugars have been running low at 70s and sodium is 146. IV fluids will be changed to D5 and half-normal saline at 75 mL per hour. Creatinine jumped to 1.72 secondary to vancomycin which was 37.5 trough level. Vancomycin has been discontinued for now. States she is feeling much better today. She denies pain in the abdomen. Recommend heating pad for back discomfort. She states she is better after a hot shower.. 05/31: Patient denies any new complaints. She denies any abdominal pain. She is very anxious for a diet to be started. Noted her white count is 15.1, sodium 148, BUN 13 and creatinine 2.39. We will change dosing on Zosyn every 12 hours. IV fluids changed to D5W with a fluid bolus followed by 125 mL per hour. Recheck lab work in the morning. 06/01: Patient has been started on a bariatric clear diet with no plan to advance today. Dr. Elizondo changed antibiotics to Rocephin and Flagyl. White count is 15.1, sodium slightly improved at 146, chloride 114, creatinine 2.31. Hemoglobin is at 9.7. Dr Conte has ordered CT of the abdomen. Patient denies any abdominal pain. She does complain of flank pain. She is urinating sufficiently and IV fluids will be decreased to 75. 06/02: CAT scan of the [place] and revealed improvement in degree of phlegmonous changes surrounding the surgically excluded gastric fundus status post gastric sleeve. No pneumoperitoneum or extravasation of contrast. Patient is continued on Rocephin and Flagyl and Dr. lares is also added and Diflucan. Patient remains afebrile, vital signs are stable, pulse ox is 90-93% on room air. White count is improved to 13.7, potassium will be replaced, sodium remains at 146 and chloride 1:15. Creatinine 2.27 which is improved from yesterday. Patient states that she has had increased stools that are the consistency of gravy. Surgery is order C. diff toxin. Midline has been ordered. 06/03: Patient denies any new complaints. She is ambulating in her room without lightheadedness or dizziness. She denies having any nausea or vomiting. She denies any abdominal pain. She is on clear liquids and tolerating this. Repeat lab work is not available at the time of this dictation. Consult with nephrology will be added and ultrasound of the renals ordered. Temperature max 100.1. Pulse ox 92-99% on room air. 06/04: Pain is controlled. Patient is tolerating clear liquid diet which is not to be advanced. Patient may need to start TPN as she was made nothing by mouth on May 29 and then on May 31 started a clear liquid diet. She states she is not eating much as she does not have much appetite. She is taking the Premier protein shake only. Diarrhea has started again. Creatinine yesterday was 2.27 was unchanged from the day before but today is down to 2.08. Patient has been seen by nephrology and IV fluids changed to lactated Ringer's at 125 mL /h, magnesium 1.9 be checked and replaced potassium, albumin 2.4. Renal ultrasound showed no hydronephrosis or nephrolithiasis. Urinary bladder is unremarkable. White count is improving to 11.5, hemoglobin 9.8. 06/05: Patient has very little appetite and is taking a small amount clear liquids. She is trying to take protein supplement. She is occasional nausea. Loose stools seem to decrease. Renal function is improving with creatinine of 1.96, sodium is 149. White count is 12.6 and hemoglobin 10.7. Patient is tocontinue on antibiotics and diet to be advanced to full liquids only. Amlodipine added for hypertension. Review of systems Constitutional: Reports fatigue, denies fever, Denies chills, Denies malaise, Denies night sweats Eyes: denies blurred vision, denies pain Ears, nose, mouth and throat: Denies headache, Denies sinus pressure, Denies sore throat Cardiovascular: Denies chest pain, Denies dyspnea on exertion, Denies irregular heart beat, Denies leg edema, Denies palpitations, Denies shortness of breath Respiratory: Denies cough, denies sputum production Gastrointestinal: Denies abdominal pain, Denies constipation, complains of diarrhea, complains of loss of appetite, complains of nausea, Denies vomiting Genitourinary: Reports flank pain, Denies dysuria, Denies hematuria, Denies urgency. Complains of flank pain. Musculoskeletal: Denies myalgias, no weakness Integumentary: Denies pruritus, Denies rash Neurological: Denies numbness, Denies weakness, + back discomfort Psychiatric: Denies anxiety, Denies depression Endocrine: Denies fatigue, Denies weight change Objective - Vital Signs Vital signs: Vital Signs Temp 98.4 F 06/05/18 07:49 Pulse 60 06/05/18 07:49 Resp 14 06/05/18 07:49 BP 179/83 06/05/18 07:49 Pulse Ox 96 06/05/18 07:49 Intake & Output 06/04/18 06/05/18 06/05/18 18:59 06:59 18:59 Weight 87.543 kg Other: Voiding Method Toilet Toilet - Exam General appearance: Present: average body habitus, cooperative. Patient is resting in bed appears to be in no distress. No acute distress. - EENT Eyes: Present: anicteric sclerae, EOMI, PERRLA ENT: Present: hearing grossly normal, NA/AT, normal oropharynx - Neck Neck: Present: normal ROM. Absent: lymphadenopathy - Respiratory Respiratory: bilateral: rhonchi, negative: diminished, dullness, rales, rhonchi , wheezing - Cardiovascular Rhythm: regular Heart sounds: normal: S1, S2 - Gastrointestinal General gastrointestinal: Present: normal bowel sounds, soft. Absent: tenderness, masses - Integumentary Integumentary: Present: normal turgor - Neurologic Neurologic: Present: CNII-XII intact - Musculoskeletal Musculoskeletal: Present: gait normal, generalized weakness, strength equal bilaterally, midline to right arm - Psychiatric Psychiatric: Present: A&O x's 3, appropriate affect, intact judgment & insight - Labs CBC & Chem 7: 06/05/18 07:22 06/05/18 07:22 Labs: Abnormal Lab Results - Last 24 Hours (Table) 06/05/18 06/05/18 Range/Units 07:22 07:22 WBC 12.6 H (3.8-10.6) k/uL RBC 3.67 L (3.80-5.40) m/uL Hgb 10.7 L (11.4-16.0) gm/dL Hct 33.7 L (34.0-46.0) % Plt Count 492 H (150-450) k/uL Sodium 149 H (137-145) mmol/L Chloride 114 H (98-107) mmol/L Creatinine 1.96 H (0.52-1.04) mg/dL Total Protein 6.0 L (6.3-8.2) g/dL Albumin 2.7 L (3.5-5.0) g/dL Microbiology - Last 24 Hours (Table) 05/29/18 08:38 Blood Culture - Final Blood No Growth after 144 hours 05/29/18 08:46 Blood Culture - Final Blood No Growth after 144 hours Assessment and Plan Plan: 1. Sepsis secondary to abdominal abscess/phlegmon and possibly related to strep agalactia urinary tract infection. Consult with Dr. Elizondo appreciated. Dr. Conte is on consult. Antibiotics have been changed to ceftriaxone and Flagyl. IV Diflucan added. IV fluids changed to LR at 125 mL per hour. Diet to be advanced to full liquids today. 2. Pneumonia less likely. Antibiotics changed to ceftriaxone and Flagyl, continue incentive spirometer. 3. Acute kidney injury secondary to vancomycin. Vancomycin has been discontinued. Continue to monitor kidney function daily. Nephrology consult appreciated. IV fluids changed to LR 125 mL per hour. 4. Morbid obesity status post gastric sleeve procedure. 5. Anemia most likely secondary to acute kidney injury. 6. Diarrhea, ruled out C. diff colitis. 7. Hypernatremia secondary to free water loss and in adequate intake. 8. Hypertension. Amlodipine 5 mg daily added DVT prophylaxis ambulation GI prophylaxis. IV Protonix. Discharge plan: Home Impression and plan of care have been directed as dictated by the signing physician. Rhonda Rodriguez nurse practitioner acting as scribe for signing physician.
[2018-06-05] MEDS: metroNIDAZOLE 500 MG TAB PO SCH ×2 (15:51→23:47)
[2018-06-05] MEDS: SODIUM CHLORIDE 0.45% 1,000 ML IV SCH (15:51)
--- NOTE | 2018-06-05 17:40 | PN ---
PROGRESS NOTE Patient is seen for followup for acute kidney injury. This morning she is complaining of diarrhea. The patient denies any fever or abdominal pain. She is maintained on IV fluids. This morning, blood pressure was 179/83, heart rate 60 per minute. She is afebrile. Examination of the heart S1, S2. Examination of lungs bilateral breath sounds are heard. Abdomen is soft, nontender. Examination of lower extremity shows no evidence of edema. [employer] exam is grossly intact. LAB: Shows sodium 149, potassium 3.5, chloride 114, CO2 is 24, BUN 17, serum creatinine 1.96, hemoglobin 10.7 g/dL. ASSESSMENT: 1. Acute kidney injury secondary to vancomycin toxicity and volume depletion. Currently maintained on IV fluids. I will continue the IV fluids given her ongoing diarrhea. 2. Mild hypernatremia. Change IV fluids to half-normal saline. 3. Status post gastric sleeve procedure on 05/09/2018. 4. Hypokalemia secondary to gastrointestinal fluid loss. Maintained on supplementation. PLAN: Change IV fluids to half-normal saline. MMODL / IJN: [id number] /
[2018-06-05] MEDS: CHOLESTYRAMINE (WITH SUGAR) 4 GM PACKET PO SCH (17:59)
[2018-06-05] MEDS ORDERED: FLUCONAZOLE 100 MG TAB PO SCH (21:00)
--- NOTE | 2018-06-05 23:38 | PN ---
PROGRESS NOTE DATE OF SERVICE: 06/05/2018. REASON FOR FOLLOWUP: Abdominal abscess post surgery. INTERVAL HISTORY: The patient is afebrile. She is breathing comfortably. No significant abdominal pain. No nausea, no vomiting. However, the patient has been complaining of diarrhea with multiple loose stools. No blood or mucus in it. EXAMINATION: Vital signs stable. Blood pressure 144/78 with a pulse of 65, temperature 98, she is 92% on room air. General description is a middle-aged female lying in bed in no distress. Respiratory system: Unlabored breathing. Clear to auscultation anteriorly. Heart S1, S2. Regular rate and rhythm. ABDOMEN: Soft. No tenderness. LABS: Hemoglobin is 10.7, white count 12.7, BUN of 17, creatinine 1.96. DIAGNOSTIC IMPRESSION AND PLAN: Patient with admission to the hospital with sepsis, the patient did have recent gastric sleeve surgery with some postop formation, but no abscess. The patient's fever responded to Rocephin and Flagyl and addition of Diflucan. However, seemed to have a problem with diarrhea. We will add Questran for symptomatic relief and re-evaluate the patient tomorrow. If diarrhea persists, we will have to cut back on antibiotics. Continue supportive care. MMODL / IJN: [id number] /
[2018-06-06 02:56] VITALS: TEMP 98.2
[2018-06-06] MEDS: HEPARIN SODIUM,PORCINE 5,000 UNIT/ML 1 ML VIAL SQ SCH ×3 (03:21→14:15)
[2018-06-06] MEDS: SODIUM CHLORIDE 0.45% 1,000 ML IV SCH ×2 (07:04→07:06)
[2018-06-06] MEDS: metroNIDAZOLE 500 MG TAB PO SCH ×2 (07:06→16:05)
[2018-06-06 07:11] VITALS: BP 143/88; PULSE 65; RESP 14
[2018-06-06] MEDS: CHOLESTYRAMINE (WITH SUGAR) 4 GM PACKET PO SCH (08:35)
[2018-06-06] MEDS: cefTRIAXone 2,000 MG in SODIUM CHLORIDE 0.9% 100 ML IVPB SCH (08:38)
[2018-06-06] MEDS: amLODIPine 5 MG TAB PO SCH (08:39)
[2018-06-06] MEDS: NYSTATIN 100,000 UNIT/ML SUSP 500,000 UNIT/5 ML CUP PO SCH ×2 (08:39→13:29)
[2018-06-06] MEDS: PANTOPRAZOLE 40 MG/10 ML VIAL IVP SCH (08:39)
--- NOTE | 2018-06-06 11:12 | P.PN ---
Subjective Progress Note Date: 06/06/18 38-year-old female sitting up in bed states feels "much better today no stool no nausea no vomiting and tolerating bariatric full diet denying any nausea sensation currently sitting up drinking [place] instant breakfast drink and tolerating denying any abdominal pain when questioning Currently no labs pending afebrile Objective - Vital Signs Vital signs: Vital Signs Temp 98.2 F 06/06/18 07:00 Pulse 65 06/06/18 07:00 Resp 14 06/06/18 07:00 BP 143/88 06/06/18 07:00 Pulse Ox 96 06/06/18 07:00 Intake & Output 06/05/18 06/06/18 06/06/18 18:59 06:59 18:59 Intake Total 125 1350 175 Balance 125 1350 175 Weight 87.543 kg 87.543 kg Intake: Intake, IV Titration 1000 Amount Sodium Chloride 0.45% 1, 1000 000 ml @ 125 mls/hr IV . Q8H [facility] Rx#:[id number] Oral 125 350 175 Other: Voiding Method Toilet Toilet Toilet # Voids 3 - Exam Physical exam 48-year-old female sitting up in bed drinking [place] drink states feels much better this morning Lungs adequate air movement bilaterally on room air no shortness of breath Heart S1-S2 audible Abdomen soft not distended nontender surgical incision sites dry no redness states no stool no nausea no vomiting tolerating diet Extremities no edema - Labs CBC & Chem 7: 06/05/18 07:22 06/05/18 07:22 Assessment and Plan Assessment: Impression Present on admission febrile tachycardic leukocytosis sepsis secondary to abdominal abscess/phlegmon related to strep agalactic urinary tract infection Morbid obesity due to excess calories status post laparoscopic post sleeve gastrectomy done at another facility 20 days prior Present on admission intractable nausea vomiting epigastric pain with a CAT scan showing evidence of perigastric inflammation and phlegmon Computed tomography scan of the abdomen pelvis report indicate evidence of a very small gastric sleeve leak with evidence of phlegmon near the gastric staple line no obvious abscess at this point Present on admission UTI with positive urine culture Acute kidney injury suspect due to vancomycin improving vancomycin was Stopped with Zosyn added Frequent loose stools with stool negative for C. diff Hypertension Plan Continue recommendations per infectious disease Continue observation Continue IV antibiotics Rocephin as ordered Pain control full liquid bariatric diet The above impression and plan of care have been discussed and directed by signing physician. Iman Pollack nurse practitioner acting as scribe for signing physician.
--- NOTE | 2018-06-06 11:28 | P.PN ---
Subjective Progress Note Date: 06/06/18 This is a 38-year-old female patient of Dr. Fernández who presented to the emergency room with a chief complaint of abdominal pain and fever. Patient had gastric sleeve surgery on 05/09/2018 by a surgeon in [place]. Patient states that she had experienced some discomfort post surgery however she did notice her heart rate being elevated over 100 at rest and not feeling well. Patient denies any congestion, cough, or sinus pressure. Patient was experienced back pain that radiated to her chest causing some shortness of breath. Patient also complains of epigastric abdominal pain. Patient called her surgeon to advised her to go to the emergency department secondary to the abdominal pain and fever concern for possible leak post surgery. Patient denies any nausea, vomiting, dysuria or hematuria patient since has had a small amount of diarrhea since the procedure. She is currently on a pure food diet and has not experienced any difficulty eating. She denies any drainage from her incisions or redness to the site. 05/28: Patient is resting comfortably in bed. She did have a temperature of 100.4 last night and heart rate still has been tachycardic. Patient dates that she is feeling much better. She has been using the incentive spirometer and has increased her number. She has also been up ambulating denies any shortness of breath with ambulation. Patient still is complaining of some lower back discomfort. WBC 16.4, hemoglobin 10.1. Patient denies any nausea, vomiting, diarrhea. Spoke with her surgeon from [facility] regarding treatment plan. 05/29: Today, patient's discharge was held due to continued elevation in white count, discharge was held and a CAT scan of the abdomen and pelvis was ordered that showed phlegmonous changes in the left upper quadrant surrounding the [place] gastric fundus which is poorly defined given the surrounding inflammatory and phlegmonous changes. Fluid attenuation is seen centrally that could represent abscess or gastric secretions within the [place] gastric fundus and phlegmonous changes may be postsurgical or infectious. Those consults with ID and general surgery were added. Dr. Elizondo is following the patient and antibiotics are currently Zosyn and vancomycin. Dr. Conte is on consult. Blood culture showing no growth after 48 hours. Mycoplasma is negative and Legionella is pending. IV fluids will be increased 100 mL per hour. 05/30: Patient has been seen by Dr. Conte and he feels she most likely had a very small gastric sleeve leak and phlegmon associated with this. Her esophagram performed today shows no evidence of a leak. He has recommended continuing observation and IV antibiotics. Patient will be monitored closely and if any changes may need exploratory laparotomy. Patient is to be strict nothing by mouth and no medications orally. Temperature max yesterday at 7 AM was 102 and since she has been afebrile. Her blood sugars have been running low at 70s and sodium is 146. IV fluids will be changed to D5 and half-normal saline at 75 mL per hour. Creatinine jumped to 1.72 secondary to vancomycin which was 37.5 trough level. Vancomycin has been discontinued for now. States she is feeling much better today. She denies pain in the abdomen. Recommend heating pad for back discomfort. She states she is better after a hot shower.. 05/31: Patient denies any new complaints. She denies any abdominal pain. She is very anxious for a diet to be started. Noted her white count is 15.1, sodium 148, BUN 13 and creatinine 2.39. We will change dosing on Zosyn every 12 hours. IV fluids changed to D5W with a fluid bolus followed by 125 mL per hour. Recheck lab work in the morning. 06/01: Patient has been started on a bariatric clear diet with no plan to advance today. Dr. Elizondo changed antibiotics to Rocephin and Flagyl. White count is 15.1, sodium slightly improved at 146, chloride 114, creatinine 2.31. Hemoglobin is at 9.7. Dr Conte has ordered CT of the abdomen. Patient denies any abdominal pain. She does complain of flank pain. She is urinating sufficiently and IV fluids will be decreased to 75. 06/02: CAT scan of the [place] and revealed improvement in degree of phlegmonous changes surrounding the surgically excluded gastric fundus status post gastric sleeve. No pneumoperitoneum or extravasation of contrast. Patient is continued on Rocephin and Flagyl and Dr. lares is also added and Diflucan. Patient remains afebrile, vital signs are stable, pulse ox is 90-93% on room air. White count is improved to 13.7, potassium will be replaced, sodium remains at 146 and chloride 1:15. Creatinine 2.27 which is improved from yesterday. Patient states that she has had increased stools that are the consistency of gravy. Surgery is order C. diff toxin. Midline has been ordered. 06/03: Patient denies any new complaints. She is ambulating in her room without lightheadedness or dizziness. She denies having any nausea or vomiting. She denies any abdominal pain. She is on clear liquids and tolerating this. Repeat lab work is not available at the time of this dictation. Consult with nephrology will be added and ultrasound of the renals ordered. Temperature max 100.1. Pulse ox 92-99% on room air. 06/04: Pain is controlled. Patient is tolerating clear liquid diet which is not to be advanced. Patient may need to start TPN as she was made nothing by mouth on May 29 and then on May 31 started a clear liquid diet. She states she is not eating much as she does not have much appetite. She is taking the Premier protein shake only. Diarrhea has started again. Creatinine yesterday was 2.27 was unchanged from the day before but today is down to 2.08. Patient has been seen by nephrology and IV fluids changed to lactated Ringer's at 125 mL /h, magnesium 1.9 be checked and replaced potassium, albumin 2.4. Renal ultrasound showed no hydronephrosis or nephrolithiasis. Urinary bladder is unremarkable. White count is improving to 11.5, hemoglobin 9.8. 06/05: Patient has very little appetite and is taking a small amount clear liquids. She is trying to take protein supplement. She is occasional nausea. Loose stools seem to decrease. Renal function is improving with creatinine of 1.96, sodium is 149. White count is 12.6 and hemoglobin 10.7. Patient is tocontinue on antibiotics and diet to be advanced to full liquids only. Amlodipine added for hypertension. 06/06: Dr. Lrener has changed IV fluids to half-normal saline. Patient's continued on Rocephin, Flagyl and Diflucan by Dr. Elizondo. He has added and Questran for her ongoing diarrhea. Patient's diet was advanced to full liquid bariatric diet. Patient denies having any nausea or vomiting. She denies any abdominal pain. No labs today. Morning labs were not available at the time of this dictation. Patient does have a midline in place for anticipated IV antibiotics at home. Review of systems Constitutional: Reports fatigue, denies fever, Denies chills, Denies malaise, Denies night sweats Eyes: denies blurred vision, denies pain Ears, nose, mouth and throat: Denies headache, Denies sinus pressure, Denies sore throat Cardiovascular: Denies chest pain, Denies dyspnea on exertion, Denies irregular heart beat, Denies leg edema, Denies palpitations, Denies shortness of breath Respiratory: Denies cough, denies sputum production Gastrointestinal: Denies abdominal pain, Denies constipation, complains of diarrhea, complains of loss of appetite, denies nausea, Denies vomiting Genitourinary: Reports flank pain, Denies dysuria, Denies hematuria, Denies urgency. Complains of flank pain. Musculoskeletal: Denies myalgias, no weakness Integumentary: Denies pruritus, Denies rash Neurological: Denies numbness, Denies weakness, + back discomfort Psychiatric: Denies anxiety, Denies depression Endocrine: Denies fatigue, Denies weight change Objective - Vital Signs Vital signs: Vital Signs Temp 98.2 F 06/06/18 07:00 Pulse 65 06/06/18 07:00 Resp 14 06/06/18 07:00 BP 143/88 06/06/18 07:00 Pulse Ox 96 06/06/18 07:00 Intake & Output 06/05/18 06/06/18 06/06/18 18:59 06:59 18:59 Intake Total 125 1350 Balance 125 1350 Weight 87.543 kg 87.543 kg Intake: Intake, IV Titration 1000 Amount Sodium Chloride 0.45% 1, 1000 000 ml @ 125 mls/hr IV . Q8H [facility] Rx#:[id number] Oral 125 350 Other: Voiding Method Toilet Toilet Toilet # Voids 3 - Exam General appearance: Present: average body habitus, cooperative. Patient is resting in bed appears to be in no distress. No acute distress. - EENT Eyes: Present: anicteric sclerae, EOMI, PERRLA ENT: Present: hearing grossly normal, NA/AT, normal oropharynx - Neck Neck: Present: normal ROM. Absent: lymphadenopathy - Respiratory Respiratory: bilateral: rhonchi, negative: diminished, dullness, rales, rhonchi , wheezing - Cardiovascular Rhythm: regular Heart sounds: normal: S1, S2 - Gastrointestinal General gastrointestinal: Present: normal bowel sounds, soft. No abdominal tenderness. Absent: tenderness, masses - Integumentary Integumentary: Present: normal turgor - Neurologic Neurologic: Present: CNII-XII intact - Musculoskeletal Musculoskeletal: Present: gait normal, generalized weakness, strength equal bilaterally, midline to right arm - Psychiatric Psychiatric: Present: A&O x's 3, appropriate affect, intact judgment & insight - Labs CBC & Chem 7: 06/05/18 07:22 06/05/18 07:22 Labs: Abnormal Lab Results - Last 24 Hours (Table) 06/05/18 Range/Units 07:22 Sodium 149 H (137-145) mmol/L Chloride 114 H (98-107) mmol/L Creatinine 1.96 H (0.52-1.04) mg/dL Total Protein 6.0 L (6.3-8.2) g/dL Albumin 2.7 L (3.5-5.0) g/dL Assessment and Plan Plan: 1. Sepsis secondary to abdominal abscess/phlegmon and possibly related to strep agalactia urinary tract infection. Consult with Dr. Elizondo appreciated. Dr. Conte is on consult. Antibiotics have been changed to ceftriaxone and Flagyl. IV Diflucan added. IV fluids changed to half-normal saline. Diet to be advanced to full liquids today. 2. Pneumonia less likely. Antibiotics changed to ceftriaxone and Flagyl, continue incentive spirometer. 3. Acute kidney injury secondary to vancomycin. Vancomycin has been discontinued. Continue to monitor kidney function daily. Nephrology consult appreciated. IV fluids changed to LR 125 mL per hour. 4. Morbid obesity status post gastric sleeve procedure. 5. Anemia most likely secondary to acute kidney injury. 6. Diarrhea, ruled out C. diff colitis. Questran added. 7. Hypernatremia secondary to free water loss and in adequate intake. 8. Hypertension. Amlodipine 5 mg daily added DVT prophylaxis ambulation GI prophylaxis. IV Protonix. Discharge plan: Home with home care and IV antibiotics. Impression and plan of care have been directed as dictated by the signing physician. Rhonda Rodriguez nurse practitioner acting as scribe for signing physician.
[2018-06-06 12:43] LABS: Calcium 8.1 mg/dL (8.4-10.2); Potassium 3.2 mmol/L (3.5-5.1)
[2018-06-06] MEDS ORDERED: POTASSIUM BICARBONATE/CIT AC 20 MEQ TABLET.EFF PO ONE (13:38)
--- NOTE | 2018-06-06 13:41 | P.DS ---
Providers Date of admission: 05/26/18 22:17 Expected date of discharge: 06/06/18 Attending physician: Waldemar Sanchez MD Consults: 05/28/18 15:19 Consult Physician Routine Consulting Provider: Marcin Elizondo Consult Reason/Comments: UTI, leukocytosis Do you want consulting provider notified?: Yes 05/28/18 18:45 Consult Physician Urgent Consulting Provider: Jamie Conte Consult Reason/Comments: ABCESS POST BARIATRIC SURGERY Do you want consulting provider notified?: Yes 06/03/18 08:50 Consult Physician Routine Consulting Provider: Elysia Lerner Consult Reason/Comments: TERELL Do you want consulting provider notified?: Yes [facility] Course: This is a 38-year-old female patient of Dr. Fernández who presented to the emergency room with a chief complaint of abdominal pain and fever. Patient had gastric sleeve surgery on 05/09/2018 by a surgeon in [place]. Patient states that she had experienced some discomfort post surgery however she did notice her heart rate being elevated over 100 at rest and not feeling well. Patient denies any congestion, cough, or sinus pressure. Patient was experienced back pain that radiated to her chest causing some shortness of breath. Patient also complains of epigastric abdominal pain. Patient called her surgeon to advised her to go to the emergency department secondary to the abdominal pain and fever concern for possible leak post surgery. Patient denies any nausea, vomiting, dysuria or hematuria patient since has had a small amount of diarrhea since the procedure. She is currently on a pure food diet and has not experienced any difficulty eating. She denies any drainage from her incisions or redness to the site. 05/28: Patient is resting comfortably in bed. She did have a temperature of 100.4 last night and heart rate still has been tachycardic. Patient dates that she is feeling much better. She has been using the incentive spirometer and has increased her number. She has also been up ambulating denies any shortness of breath with ambulation. Patient still is complaining of some lower back discomfort. WBC 16.4, hemoglobin 10.1. Patient denies any nausea, vomiting, diarrhea. Spoke with her surgeon from [facility] regarding treatment plan. 05/29: Today, patient's discharge was held due to continued elevation in white count, discharge was held and a CAT scan of the abdomen and pelvis was ordered that showed phlegmonous changes in the left upper quadrant surrounding the [place] gastric fundus which is poorly defined given the surrounding inflammatory and phlegmonous changes. Fluid attenuation is seen centrally that could represent abscess or gastric secretions within the [place] gastric fundus and phlegmonous changes may be postsurgical or infectious. Those consults with ID and general surgery were added. Dr. Elizondo is following the patient and antibiotics are currently Zosyn and vancomycin. Dr. Conte is on consult. Blood culture showing no growth after 48 hours. Mycoplasma is negative and Legionella is pending. IV fluids will be increased 100 mL per hour. 05/30: Patient has been seen by Dr. Conte and he feels she most likely had a very small gastric sleeve leak and phlegmon associated with this. Her esophagram performed today shows no evidence of a leak. He has recommended continuing observation and IV antibiotics. Patient will be monitored closely and if any changes may need exploratory laparotomy. Patient is to be strict nothing by mouth and no medications orally. Temperature max yesterday at 7 AM was 102 and since she has been afebrile. Her blood sugars have been running low at 70s and sodium is 146. IV fluids will be changed to D5 and half-normal saline at 75 mL per hour. Creatinine jumped to 1.72 secondary to vancomycin which was 37.5 trough level. Vancomycin has been discontinued for now. States she is feeling much better today. She denies pain in the abdomen. Recommend heating pad for back discomfort. She states she is better after a hot shower.. 05/31: Patient denies any new complaints. She denies any abdominal pain. She is very anxious for a diet to be started. Noted her white count is 15.1, sodium 148, BUN 13 and creatinine 2.39. We will change dosing on Zosyn every 12 hours. IV fluids changed to D5W with a fluid bolus followed by 125 mL per hour. Recheck lab work in the morning. 06/01: Patient has been started on a bariatric clear diet with no plan to advance today. Dr. Elizondo changed antibiotics to Rocephin and Flagyl. White count is 15.1, sodium slightly improved at 146, chloride 114, creatinine 2.31. Hemoglobin is at 9.7. Dr Conte has ordered CT of the abdomen. Patient denies any abdominal pain. She does complain of flank pain. She is urinating sufficiently and IV fluids will be decreased to 75. 06/02: CAT scan of the [place] and revealed improvement in degree of phlegmonous changes surrounding the surgically excluded gastric fundus status post gastric sleeve. No pneumoperitoneum or extravasation of contrast. Patient is continued on Rocephin and Flagyl and Dr. lares is also added and Diflucan. Patient remains afebrile, vital signs are stable, pulse ox is 90-93% on room air. White count is improved to 13.7, potassium will be replaced, sodium remains at 146 and chloride 1:15. Creatinine 2.27 which is improved from yesterday. Patient states that she has had increased stools that are the consistency of gravy. Surgery is order C. diff toxin. Midline has been ordered. 06/03: Patient denies any new complaints. She is ambulating in her room without lightheadedness or dizziness. She denies having any nausea or vomiting. She denies any abdominal pain. She is on clear liquids and tolerating this. Repeat lab work is not available at the time of this dictation. Consult with nephrology will be added and ultrasound of the renals ordered. Temperature max 100.1. Pulse ox 92-99% on room air. 06/04: Pain is controlled. Patient is tolerating clear liquid diet which is not to be advanced. Patient may need to start TPN as she was made nothing by mouth on May 29 and then on May 31 started a clear liquid diet. She states she is not eating much as she does not have much appetite. She is taking the Premier protein shake only. Diarrhea has started again. Creatinine yesterday was 2.27 was unchanged from the day before but today is down to 2.08. Patient has been seen by nephrology and IV fluids changed to lactated Ringer's at 125 mL /h, magnesium 1.9 be checked and replaced potassium, albumin 2.4. Renal ultrasound showed no hydronephrosis or nephrolithiasis. Urinary bladder is unremarkable. White count is improving to 11.5, hemoglobin 9.8. 06/05: Patient has very little appetite and is taking a small amount clear liquids. She is trying to take protein supplement. She is occasional nausea. Loose stools seem to decrease. Renal function is improving with creatinine of 1.96, sodium is 149. White count is 12.6 and hemoglobin 10.7. Patient is tocontinue on antibiotics and diet to be advanced to full liquids only. Amlodipine added for hypertension. 06/06: Dr. Lerner has changed IV fluids to half-normal saline. Patient's continued on Rocephin, Flagyl and Diflucan by Dr. Elizondo. He has added and Questran for her ongoing diarrhea. Patient's diet was advanced to full liquid bariatric diet. Patient denies having any nausea or vomiting. She denies any abdominal pain. No labs today. Morning labs were not available at the time of this dictation. Patient does have a midline in place for anticipated IV antibiotics at home. Repeat labwork showed a sodium of 147, potassium 3.2, chloride 111, BUN 17 and creatinine 1.63. Patient was cleared by Dr. Conte for discharge home to continue on a full liquid bariatric diet. Antimicrobials have been clarified with Dr. Elizondo to include Rocephin, Diflucan, Flagyl for another 10 days. Patient will be discharged home today in stable condition. Discharge diagnoses: 1. Sepsis secondary to abdominal phlegmon 2. Pneumonia and UTI ruled out 3. Acute kidney injury secondary to vancomycin. 4. Morbid obesity status post gastric sleeve procedure. 5. Anemia most likely secondary to acute kidney injury. 6. Diarrhea, ruled out C. diff colitis. 7. Hypernatremia secondary to free water loss and in adequate intake. 8. Hypertension. Discharge plan: Home with IV antibiotics through [facility]. Impression and plan of care have been directed as dictated by the signing physician. Rhonda Rodriguez nurse practitioner acting as scribe for signing physician. Patient Condition at Discharge: Good Plan - Discharge Summary Discharge Rx Participant: Yes New Discharge Prescriptions: New Acetaminophen Tab [Tylenol] 650 mg PO Q6HR PRN tab PRN Reason: Mild Pain Or Fever > 100.5 cefTRIAXone [Rocephin] 2,000 mg IVP Q24HR #10 vial amLODIPine [Norvasc] 5 mg PO DAILY #30 tab Fluconazole [Diflucan] 200 mg PO DAILY #10 tab metroNIDAZOLE [Flagyl] 500 mg PO TID #30 tab Continue Multivitamin,Therapeutic [Thera] 1 tab PO DAILY Ascorbic Acid [Vitamin C] 500 mg PO DAILY Acetaminophen [Tylenol Extra Strength] 500 mg PO Q6H PRN PRN Reason: Pain ALPRAZolam [Xanax] 1 mg PO TID PRN PRN Reason: Anxiety Calcium Carbonate [Calcium] 600 mg PO DAILY Discharge Medication List ALPRAZolam [Xanax] 1 mg PO TID PRN 05/26/18 [History] Acetaminophen [Tylenol Extra Strength] 500 mg PO Q6H PRN 05/26/18 [History] Ascorbic Acid [Vitamin C] 500 mg PO DAILY 05/26/18 [History] Calcium Carbonate [Calcium] 600 mg PO DAILY 05/26/18 [History] Multivitamin,Therapeutic [Thera] 1 tab PO DAILY 05/26/18 [History] Acetaminophen Tab [Tylenol] 650 mg PO Q6HR PRN tab 05/28/18 [Rx] cefTRIAXone [Rocephin] 2,000 mg IVP Q24HR #10 vial 06/02/18 [Rx] Fluconazole [Diflucan] 200 mg PO DAILY #10 tab 06/06/18 [Rx] amLODIPine [Norvasc] 5 mg PO DAILY #30 tab 06/06/18 [Rx] metroNIDAZOLE [Flagyl] 500 mg PO TID #30 tab 06/06/18 [Rx] Follow up Appointment(s)/Referral(s): German Fernández DO [Primary Care Provider] - 1 Week Marcin Elizondo MD [STAFF PHYSICIAN] - 1 Week Activity/Diet/Wound Care/Special Instructions: 1. Follow-up with Dr. Jeet Nj in one week. 2. IV antibiotics - [facility]: phone#: [phone]; address: [address] [place] [address] [address] Patient is to show up for appointment on: 06/07/18 anytime between 1pm and 3pm. 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 Patient will go to [facility] weekly for line dressing changes and lab draws. Rocephin is for 10 more days and will be completed on June 16 Discharge Disposition: HOME SELF-CARE
--- NOTE | 2018-06-06 21:24 | PN ---
PROGRESS NOTE Patient is seen for followup for acute kidney injury. This morning she was comfortable, denied any diarrhea, which had improved. The patient continued to have good urine output. PHYSICAL EXAMINATION: This morning, blood pressure was 143/88, heart rate 65 per minute. She is afebrile. Examination of the heart S1, S2. Examination of lungs bilateral breath sounds are heard. Abdomen is soft, nontender. Examination of lower extremities shows no significant edema. LABS: From this morning showed sodium 147, potassium 3.2, BUN 17, serum creatinine 1.63. ASSESSMENT: 1. Acute kidney injury secondary to vancomycin toxicity, currently improving. Patient has been maintained on IV fluids. She can be discharged with plans to follow up as outpatient with repeat labs as outpatient. 2. Hypernatremia associated with free water deficit. IV fluids were changed to half- normal saline. Continue to encourage increased oral free water intake. 3. Status post gastric sleeve procedure on 05/09/2018. 4. Diarrhea, currently improved. C diff toxin was negative. PLAN: Okay for discharge. Patient will need outpatient followup and repeat labs as outpatient to monitor renal function and electrolytes. MMODL / IJN: [id number] /
--- NOTE | 2018-06-06 22:33 | PN ---
PROGRESS NOTE DATE OF SERVICE: 06/06/2018. REASON FOR FOLLOWUP: Abdominal abscess. INTERVAL HISTORY: The patient was seen on rounds early this afternoon. The patient has been afebrile. She has been breathing comfortably. No abdominal pain. The patient's diarrhea has resolved. Did have 2 bowel movements since yesterday without any use of Questran. No chest pain. No nausea. No vomiting. Tolerating a soft diet. EXAMINATION: Blood pressure 143/88 with a pulse of 65, temperature 98.2. She is 96% on room air. General description is a middle aged female lying in bed in no distress. Respiratory system: Unlabored breathing. Clear to auscultation anteriorly. Heart S1, S2. Regular rate and rhythm. Abdomen soft. No tenderness. LABS: Creatinine 1.63. Blood culture has been negative. DIAGNOSTIC IMPRESSION AND PLAN: Patient with postop fever in this patient who did have a recent gastric sleeve surgery with leak and final confirmation, but no evidence of any abscess. The patient at this time will finish therapy with IV Rocephin in addition to oral Flagyl and Diflucan and follow up in the office in a week. Continue supportive care. MMODL / IJN: [id number] /
[2018-06-07] MEDS ORDERED: PANTOPRAZOLE 40 MG TABLET PO SCH (07:30)
== END 2018-06-06 16:25 | disposition home or self-care (01) | DRG 862 ==
LOC: EC 17:46 → 4SSUR 22:17
PROVIDERS: ADMIT Internal Medicine; ATTEND Internal Medicine
PROC: 05H933Z Insertion of Infusion Device into Right Brachial Vein, Percutaneous Approach (ICD-10-PCS; principal; 2018-06-02 14:20)
DX: T81.43XA Infection following a procedure, organ and space surgical site, initial encounter (principal); K65.1 Peritoneal abscess; B37.0 Candidal stomatitis; E87.0 Hyperosmolality and hypernatremia; K95.89 Other complications of other bariatric procedure; N17.9 Acute kidney failure, unspecified; T81.44XA Sepsis following a procedure, initial encounter; D64.9 Anemia, unspecified; E66.01 Morbid (severe) obesity due to excess calories; E83.51 Hypocalcemia; E86.9 Volume depletion, unspecified; E87.6 Hypokalemia; I10 Essential (primary) hypertension; T36.8X5A Adverse effect of other systemic antibiotics, initial encounter; Y83.2 Surgical operation with anastomosis, bypass or graft as the cause of abnormal reaction of the patient, or of later complication, without mention of misadventure at the time of the procedure; Z82.49 Family history of ischemic heart disease and other diseases of the circulatory system; Z83.3 Family history of diabetes mellitus; Z98.84 Bariatric surgery status; Z68.33 Body mass index [BMI] 33.0-33.9, adult; R19.7 Diarrhea, unspecified; Z79.899 Other long term (current) drug therapy
CPT/HCPCS: 36415; 36569; 71275; 74176; 74177; 74178; 74240; 76770; 76937; 80048; 80053; 80202; 81001; 81025; 82150; 83605; 83690; 83735; 85025; 85027; 85379; 85610; 85730; 86738; 87040; 87086; 87324; 87449; 87502; 96361; 96365; 99285

== ENCOUNTER → 2021-05-22 | Outpatient (CLI) | payer OTHER ==
--- NOTE | 2021-05-24 16:28 | US ---
EXAMINATION TYPE: US transvaginal DATE OF EXAM: 05/22/2021 COMPARISON: NONE CLINICAL HISTORY: 41-year-old female R10.3 ABDOMINAL/PELVIC PAIN. TECHNIQUE: Transabdominal sonographic images of the pelvis were acquired. Transvaginal sonographic i mages were medically necessary to better assess the following anatomy: Ovaries Date of LMP: Every three months FINDINGS: EXAM MEASUREMENTS: Uterus: 7.3x5.8x4.6 cm Endometrial Stripe: 0.5 cm Right Ovary: 1.9x1.2x0.7cm cm Left Ovary: 2.5x1.1x0.9cm cm 1. Uterus: Retroverted. The myometrium is heterogeneous, there is an anterior myometrial cyst measur ing 0.5x0.5x0.4cm just adjacent to the endometrial stripe. 2. Endometrium: wnl 3. Right Ovary: wnl 4. Left Ovary: wnl 5. Bilateral Adnexa: wnl 6. Posterior cul-de-sac: wnl IMPRESSION: 1. Retroverted uterus. Endometrial stripe measuring 5 mm. 2. The myometrium is heterogeneous and there is an anterior myometrial cyst adjacent to the endometri um. The findings are nonspecific. Consider the possibility of adenomyosis.
== END | disposition home or self-care (01) ==
LOC: RADUSWWP 13:32
PROVIDERS: ATTEND Family Medicine
DX: N85.4 Malposition of uterus (principal); N85.8 Other specified noninflammatory disorders of uterus
CPT/HCPCS: 76830